=== PATIENT | male | born 1955 | race Caucasian/White ===

== ENCOUNTER 2017-09-03 08:30 | Outpatient (RCR) | payer OTHER, SELFPAY ==
[2017-08-20 09:24] VITALS: BP 126/88; PULSE 62; RESP 18; TEMP 36.9; BMI 35.5
[2017-08-20 12:38] LABS: Absolute Lymphocyte Count 2.01 X10^3/ul (0.83-4.51); Absolute Neutrophil Count 4.1 X10^3/uL (2.0-7.7); Eosinophil# 0.21 X10^3/uL; Eosinophils% 2.9 % (0-5); Erythrocyte Sedimentation Rate 7 mm/hr (0-20); Hematocrit 45.1 % (40-54); Hemoglobin 15.3 g/dl (13.0-16.5); Lymphocyte # 2.01 X10^3/ul (4.0); Lymphocyte % 27.7 % (19-41); Mean Corp Hgb Conc 33.9 g/gl (32-36); Mean Corpuscular Hgb 30.4 pg (27.0-32.0); Mean Corpuscular Volume 89.5 fL (80-94); Mean Platelet Vol. 9.5 fl (6.2-12.0); Monocyte# 0.93 X10^3/uL; Monocyte% 12.8 % (0-10); Neutrophil # 4.06 X10^3/uL (2.7-7.7); Platelet Count 234 K/mm3 (150-450); RBC Distribution Width CV 12.9 % (11.6-14.6); RBC Distribution Width SD 41.9 fl (35.1-43.9); Red Blood Count 5.04 M/mm3 (4.6-6.2); White Blood Count 7.3 K/mm3 (4.4-11.0)
[2017-08-20 12:41] LABS: POSITIVE COUNT NO; POSITIVE DIFFERENTIAL NO; POSITIVE MORPHOLOGY NO
[2017-08-20 13:03] LABS: Hemoglobin A1c 5.6 % (4.2-6.3)
[2017-08-20 13:04] LABS: AST(SGOT) 31 U/L (15-37); Alanine Aminotransfer ALT/SGPT 56 U/L (16-61); Albumin, Serum 3.7 g/dL (3.2-5.0); Alkaline Phosphatase 77 U/L (45-117); Anion Gap 8 (5-15); BUN 23 mg/dL (7-18); BUN/Creat Ratio 21.1 RATIO (10-20); Chloride 107 mmol/L (98-107); Creatinine, Serum 1.09 mg/dL (0.70-1.30); EST Glomerular Filtration Rate 73 mL/min (>60); Est Glom Filt Rate - Afr Amer 89 mL/min (>60); Estimated Creatinine Clearance 90.83 ml/min; Globulin 3.6 g/dL (2.2-4.2); Glucose 80 mg/dL (74-106); Potassium 4.1 mmol/L (3.5-5.1); Prealbumin 26.5 mg/dL (20.0-40.0); Protein, Total 7.3 g/dL (6.4-8.2); Sodium Level 143 mmol/L (136-145)
--- NOTE | 2017-08-20 13:25 | PCM.WC.HP ---
(1) Neuropathic ulcer of left foot with fat layer exposed Status: Acute Current Visit: Yes Code(s): L97.522 - Non-pressure chronic ulcer of other part of left foot with fat layer exposed (2) Delayed wound healing Status: Acute Current Visit: Yes Code(s): T14.8XXD - Other injury of unspecified body region, subsequent encounter (3) Malnutrition Status: Suspected Current Visit: Yes Code(s): E46 - Unspecified protein-calorie malnutrition (4) Obesity Status: Acute Current Visit: Yes Code(s): E66.9 - Obesity, unspecified (5) Idiopathic neuropathy Status: Acute Current Visit: Yes Code(s): G60.9 - Hereditary and idiopathic neuropathy, unspecified History of Present Illness Date of Service: 08/20/17 Chief Complaint: ulcer of left great toe History of Wound: Patient presents to wound center today with a non healing ulcer to the distal plantar medial left foot. He says he thinks he had a callus and blister in the area that started the ulcer. He noticed it about a week and a half ago. He has had ulcers in the past, so for the last week and a half he has tried to dress the area with aquacel ag that he had left over from the past. He says he has not noticed it getting much worse, but he has not noticed an improvement. He denies any purulence or significant amount of drainage to the area. He saw Dr. Pillai on August 12 who cultured the ulcer site and started the patietn on 10 days of Ciprofloxacin one the sensitivity came back. Patient says he started taking the medication 2 days ago. 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 He had accommodative inserts made at [employer] close to a year ago, however, the area of the previous ulcre is not an offloaded area. Patient denies any feeling of nausea, vomiting, fever, chills, or shortness of breath. Past Medical History Allergies/Adverse Reactions: Allergies Penicillins [PCN] Adverse Reaction (Verified 07/02/16 08:49) Unknown Home Medications: Ambulatory Orders Medication Instructions Recorded Aspirin [Aspirin, Baby] 81 mg PO DAILY@0800 06/15/13 Atenolol [] 100 mg PO DAILY 06/22/13 Garlic 1,000 mg PO DAILY 06/22/13 Smoking Status: Never smoker Tobacco Use: Non-smoker Review of Systems Constitutional: Denies: Chills, Fever, Weight Change Cardiovascular: Denies: Chest Pain, Palpitations Respiratory: Denies: Cough, Shortness of Breath Gastrointestinal: Denies: Diarrhea, Nausea, Vomiting Genitourinary: Denies: Dysuria, Hematuria Skin: Reports: Wounds Neurological: Reports: - - forefoot neuropathy Hematologic/ Lymphatic: Denies: Easy Bruising, Easy Bleeding - Physical Exam Vital Signs Temp Pulse Resp BP 98.4 F 62 18 126/88 H 08/20/17 09:24 08/20/17 09:24 08/20/17 09:24 08/20/17 09:24 General: Alert, Oriented x3, Cooperative, No apparent distress Extremities: No edema, Capillary Refill Less than 3 Seconds, No Calf Tenderness - negative hannah and byrne sign, Peripheral Pulses Normal - DP and PT pulses palpable Skin: Ulcer/ Wound - Ulcer to plantar distal left forefoot, just distal to the 1st metatarsal head. Ulcer base was noted to have adherent slough and fibrotic tissue with some granular tissue to base as well as hyperkeratotic rim. There was also a small amount of undermining appreciated around the entire ulcer site. There is no probing to bone noted. There is no purulence, malodor, cellulitis, or any other signs of local infection appreciated. Wound Measurements and Assessment WC - Nurse 1 - General Ulcer Measurement Start: 08/20/17 09:18 Freq: Status: Active Protocol: Activity Type Activity Date Activity User E-Sign Co-Sign Detail Recorded Client Recorded Date Recorded By Document 08/20/17 09:24 [id number] 08/20/17 09:36 08/20/17 09:24 Wound Center Nurse 1 [Ulcer Assessment] #3 LEFT PLANTAR 1ST METATARSAL HEAD -Combined with other wound No -Current Size (cm) - Length 0.6 -Current Size (cm) - Width 0.6 -Current Size (cm) - Depth 0.3 -Total Square Cm 0.36 -Date of Last Picture (Recall this 08/20/17 field) -Photo Taken Yes -Epithelialization None Present -Tunneling No -Undermining/Tunneling No -Circular Undermining No -Classification - Thickness Full Thickness without Exposed Support Structure -Exudate Amt Small (1-33%) -Exudate Type Serosanguineous -Wound Margin Distinct, Outline Attached -Granulation Amt None Present (0 %) -Granulation Quality N/A -Slough/Fibrin Yes -Necrosis Amt Large (67-100%) -Necrotic Tissue Type Adherent Slough -Structure Exposed Fascia Fat Layer Exposed -Texture (Bernice-wound Skin Appearance) Callus Scarring -Moisture (Bernice-wound Skin Appearance No Abnormality ) -Color (Bernice-wound Skin Appearance) No Abnormality -Temperature (Bernice-wound Skin No Abnormality Appearance) (Pt Warm) -Tenderness on Palpation (Bernice-wound No Skin Appearance) -Ulcer Cleansing Rinsed/ Irrigated with Saline -Foul Odor after Cleansing No -Anesthetic Used 4% Lidocaine Solution [Edema Assessment] -Lower Limb Edema Present Yes -Right Calf (cm) 43.0 -Right Ankle (cm) 25.5 -Left Calf (cm) 43.0 -Left Ankle (cm) 26.0 WC - Nurse 2 - General Ulcer CM Notes Start: 08/20/17 09:18 Freq: Status: Active Protocol: Activity Type Activity Date Activity User E-Sign Co-Sign Detail Recorded Client Recorded Date Recorded By Document 08/20/17 10:09 MW [id number] 08/20/17 10:16 MW 08/20/17 10:09 Wound Center Nurse 2 [Procedure/Treatment] #3 LEFT PLANTAR 1ST METATARSAL HEAD -Time 10:10 -Correct Patient Yes -Correct Side, Site, Position Yes -Correct Procedure Yes -Procedure Performed Yes -Type of Procedure Debridement -Clinical Debridement Subcutaneous -Post Debridement Size (cm) - Length 1.1 -Post Debridement Size (cm) - Width 1.2 -Post Debridement Size (cm) - Depth 0.4 -Total Square Cm 1.32 -Wound/Ulcer Outcome Not Healed -Ulcer Cleansing Rinsed/ Irrigated with Saline -Foul Odor after Cleansing No -Bioengineered Tissue No -Bleeding Controlled with Pressure -Treatment Response Procedure Tolerated Well [See Physician Procedure note for Specifics] Pain Scale: 0-10 Numeric [Pain] -Is Patient Pain Free? Yes Musculoskeletal: - - muscle strength 5/5 for all dorsiflexors, plantarflexors, inverters, and everters of the foot Neurological: - - protective sensation absent from left forefoot as tested with a 5.07 semmes cody monofilament Psych/Mental Status: Normal Affect, Appropriate Debridement Note Post-Debridement Measurements/Treatment WC - Nurse 2 - General Ulcer CM Notes Start: 08/20/17 09:18 Freq: Status: Active Protocol: Activity Type Activity Date Activity User E-Sign Co-Sign Detail Recorded Client Recorded Date Recorded By Document 08/20/17 10:09 MW [id number] 08/20/17 10:16 MW 08/20/17 10:09 Wound Center Nurse 2 #3 LEFT PLANTAR 1ST METATARSAL HEAD -Time 10:10 -Correct Patient Yes -Correct Side, Site, Position Yes -Correct Procedure Yes -Procedure Performed Yes -Type of Procedure Debridement -Clinical Debridement Subcutaneous -Post Debridement Size (cm) - Length 1.1 -Post Debridement Size (cm) - Width 1.2 -Post Debridement Size (cm) - Depth 0.4 -Total Square Cm 1.32 -Wound/Ulcer Outcome Not Healed -Ulcer Cleansing Rinsed/ Irrigated with Saline -Foul Odor after Cleansing No -Bioengineered Tissue No -Bleeding Controlled with Pressure -Treatment Response Procedure Tolerated Well Pain Scale: 0-10 Numeric Is Patient Pain Free? Yes Wound debrided: Left plantar medial distal forefoot Laterality: Left Type of Debridement: Excisional debridement Anesthesia Used: 4% Lidocaine Solution Depth: in the subcutaneous layer Percentage of wound debrided: 100 Instrument Used: #15 blade, Forceps, - - tissue nipper Tissue Removed: adherent slough, fibrotic tissue, hyperkeratotic tissue Severity: Fat Layer Exposed Amount of bleeding with debridement: Mild Bleeding Controlled with: Pressure Patient tolerated procedure well Assessment/Plan Active Problems Neuropathic ulcer of left foot with fat layer exposed (Acute) Delayed wound healing (Acute) Obesity (Acute) Idiopathic neuropathy (Acute) Assessment: Ulcer left foot with fat layer exposed. idiopathic neuropathy. obesity Plan: Initial patient examination and evaluation was performed. Ulcer site was debrided as noted in the clinical panel. Ulcer site was dressed with Aquacel Ag to the base followed by dry sterile dressing. The patient is to changes daily. Offloading the ulcer site was discussed in great detail with the patient. It was stressed the importance of keeping this area offloaded as much as possible. He had a pair of accommodative orthotics made at [facility] last year, however, there is no accommodation in the site of the current ulcer. A prescription was given to the patient to follow-up with antibiotics to see if they are able to make an accommodation for the current ulcer in the pair of inserts he already has. At his visit today, and offloading pad was fashioned and applied to the patient's orthotic to help offload the area. Dr. Pillai cultured the patient's ulcer on August 12 and was shown to grow some staph aureus as well as pseudomonas aeruginosa. He started the patient on ciprofloxacin and he was given a 10 day supply of which the patient started 2 days ago. The patient was instructed to continue to take this antibiotic until complete. Baseline lab work was ordered today including a CBC with differential, CMP, prealbumin, ESR, hemoglobin A1c. These results will be evaluated prior to the patient's next visit. Dressing supplies were ordered for the patient today patient was instructed to eat a high protein diet to help accelerate ulcer healing. Patient was educated on all signs and symptoms of local and systemic infection and is instructed to go to the ER immediately should he notice any. All questions were answered to the patient's satisfaction. Patient will follow-up in clinic in 1 week or sooner if needed.
--- NOTE | 2017-08-20 13:36 | HP.PCM_ITS ---
(1) Neuropathic ulcer of left foot with fat layer exposed Status: Acute Current Visit: Yes Code(s): L97.522 - Non-pressure chronic ulcer of other part of left foot with fat layer exposed (2) Delayed wound healing Status: Acute Current Visit: Yes Code(s): T14.8XXD - Other injury of unspecified body region, subsequent encounter (3) Malnutrition Status: Suspected Current Visit: Yes Code(s): E46 - Unspecified protein- calorie malnutrition (4) Obesity Status: Acute Current Visit: Yes Code(s): E66.9 - Obesity, unspecified (5) Idiopathic neuropathy Status: Acute Current Visit: Yes Code(s): G60.9 - Hereditary and idiopathic neuropathy, unspecified History of Present Illness Date of Service: 08/20/17 Chief Complaint: ulcer of left great toe History of Wound: Patient presents to wound center today with a non healing ulcer to the distal plantar medial left foot. He says he thinks he had a callus and blister in the area that started the ulcer. He noticed it about a week and a half ago. He has had ulcers in the past, so for the last week and a half he has tried to dress the area with aquacel ag that he had left over from the past. He says he has not noticed it getting much worse, but he has not noticed an improvement. He denies any purulence or significant amount of drainage to the area. He saw Dr. Pillai on August 12 who cultured the ulcer site and started the patietn on 10 days of Ciprofloxacin one the sensitivity came back. Patient says he started taking the medication 2 days ago. 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 He had accommodative inserts made at [employer] close to a year ago, however, the area of the previous ulcre is not an offloaded area. Patient denies any feeling of nausea, vomiting, fever, chills, or shortness of breath. Past Medical History Allergies/Adverse Reactions: Allergies Penicillins [PCN] Adverse Reaction (Verified 07/02/16 08:49) Unknown Home Medications: Ambulatory Orders Medication Instructions Recorded Aspirin [Aspirin, Baby] 81 mg PO DAILY@0800 06/15/13 Atenolol [] 100 mg PO DAILY 06/22/13 Garlic 1,000 mg PO DAILY 06/22/13 Smoking Status: Never smoker Tobacco Use: Non-smoker Review of Systems Constitutional: Denies: Chills, Fever, Weight Change Cardiovascular: Denies: Chest Pain, Palpitations Respiratory: Denies: Cough, Shortness of Breath Gastrointestinal: Denies: Diarrhea, Nausea, Vomiting Genitourinary: Denies: Dysuria, Hematuria Skin: Reports: Wounds Neurological: Reports: - - forefoot neuropathy Hematologic/ Lymphatic: Denies: Easy Bruising, Easy Bleeding - Physical Exam Vital Signs Temp Pulse Resp BP 98.4 F 62 18 126/88 H 08/20/17 09:24 08/20/17 09:24 08/20/17 09:24 08/20/17 09:24 General: Alert, Oriented x3, Cooperative, No apparent distress Extremities: No edema, Capillary Refill Less than 3 Seconds, No Calf Tenderness - negative hannah and byrne sign, Peripheral Pulses Normal - DP and PT pulses palpable Skin: Ulcer/ Wound - Ulcer to plantar distal left forefoot, just distal to the 1st metatarsal head. Ulcer base was noted to have adherent slough and fibrotic tissue with some granular tissue to base as well as hyperkeratotic rim. There was also a small amount of undermining appreciated around the entire ulcer site. There is no probing to bone noted. There is no purulence, malodor, cellulitis, or any other signs of local infection appreciated. Wound Measurements and Assessment WC - Nurse 1 - General Ulcer Measurement Start: 08/20/17 09:18 Freq: Status: Active Protocol: Activity Type Activity Date Activity User E-Sign Co-Sign Detail Recorded Client Recorded Date Recorded By Document 08/20/17 09:24 [id number] 08/20/17 09:36 08/20/17 09:24 Wound Center Nurse 1 [Ulcer Assessment] #3 LEFT PLANTAR 1ST METATARSAL HEAD -Combined with other wound No -Current Size (cm) - Length 0.6 -Current Size (cm) - Width 0.6 -Current Size (cm) - Depth 0.3 -Total Square Cm 0.36 -Date of Last Picture (Recall this 08/20/17 field) -Photo Taken Yes -Epithelialization None Present -Tunneling No -Undermining/Tunneling No -Circular Undermining No -Classification - Thickness Full Thickness without Exposed Support Structure -Exudate Amt Small (1-33%) -Exudate Type Serosanguineous -Wound Margin Distinct, Outline Attached -Granulation Amt None Present (0 %) -Granulation Quality N/A -Slough/Fibrin Yes -Necrosis Amt Large (67-100%) -Necrotic Tissue Type Adherent Slough -Structure Exposed Fascia Fat Layer Exposed -Texture (Bernice-wound Skin Appearance) Callus Scarring -Moisture (Bernice-wound Skin Appearance No Abnormality ) -Color (Bernice-wound Skin Appearance) No Abnormality -Temperature (Bernice-wound Skin No Abnormality Appearance) (Pt Warm) -Tenderness on Palpation (Bernice-wound No Skin Appearance) -Ulcer Cleansing Rinsed/ Irrigated with Saline -Foul Odor after Cleansing No -Anesthetic Used 4% Lidocaine Solution [Edema Assessment] -Lower Limb Edema Present Yes -Right Calf (cm) 43.0 -Right Ankle (cm) 25.5 -Left Calf (cm) 43.0 -Left Ankle (cm) 26.0 WC - Nurse 2 - General Ulcer CM Notes Start: 08/20/17 09:18 Freq: Status: Active Protocol: Activity Type Activity Date Activity User E-Sign Co-Sign Detail Recorded Client Recorded Date Recorded By Document 08/20/17 10:09 MW [id number] 08/20/17 10:16 MW 08/20/17 10:09 Wound Center Nurse 2 [Procedure/Treatment] #3 LEFT PLANTAR 1ST METATARSAL HEAD -Time 10:10 -Correct Patient Yes -Correct Side, Site, Position Yes -Correct Procedure Yes -Procedure Performed Yes -Type of Procedure Debridement -Clinical Debridement Subcutaneous -Post Debridement Size (cm) - Length 1.1 -Post Debridement Size (cm) - Width 1.2 -Post Debridement Size (cm) - Depth 0.4 -Total Square Cm 1.32 -Wound/Ulcer Outcome Not Healed -Ulcer Cleansing Rinsed/ Irrigated with Saline -Foul Odor after Cleansing No -Bioengineered Tissue No -Bleeding Controlled with Pressure -Treatment Response Procedure Tolerated Well [See Physician Procedure note for Specifics] Pain Scale: 0-10 Numeric [Pain] -Is Patient Pain Free? Yes Musculoskeletal: - - muscle strength 5/5 for all dorsiflexors, plantarflexors, inverters, and everters of the foot Neurological: - - protective sensation absent from left forefoot as tested with a 5.07 semmes cody monofilament Psych/Mental Status: Normal Affect, Appropriate Debridement Note Post-Debridement Measurements/Treatment WC - Nurse 2 - General Ulcer CM Notes Start: 08/20/17 09:18 Freq: Status: Active Protocol: Activity Type Activity Date Activity User E-Sign Co-Sign Detail Recorded Client Recorded Date Recorded By Document 08/20/17 10:09 MW [id number] 08/20/17 10:16 MW 08/20/17 10:09 Wound Center Nurse 2 #3 LEFT PLANTAR 1ST METATARSAL HEAD -Time 10:10 -Correct Patient Yes -Correct Side, Site, Position Yes -Correct Procedure Yes -Procedure Performed Yes -Type of Procedure Debridement -Clinical Debridement Subcutaneous -Post Debridement Size (cm) - Length 1.1 -Post Debridement Size (cm) - Width 1.2 -Post Debridement Size (cm) - Depth 0.4 -Total Square Cm 1.32 -Wound/Ulcer Outcome Not Healed -Ulcer Cleansing Rinsed/ Irrigated with Saline -Foul Odor after Cleansing No -Bioengineered Tissue No -Bleeding Controlled with Pressure -Treatment Response Procedure Tolerated Well Pain Scale: 0-10 Numeric Is Patient Pain Free? Yes Wound debrided: Left plantar medial distal forefoot Laterality: Left Type of Debridement: Excisional debridement Anesthesia Used: 4% Lidocaine Solution Depth: in the subcutaneous layer Percentage of wound debrided: 100 Instrument Used: #15 blade, Forceps, - - tissue nipper Tissue Removed: adherent slough, fibrotic tissue, hyperkeratotic tissue Severity: Fat Layer Exposed Amount of bleeding with debridement: Mild Bleeding Controlled with: Pressure Patient tolerated procedure well Assessment/Plan Active Problems Neuropathic ulcer of left foot with fat layer exposed (Acute) Delayed wound healing (Acute) Obesity (Acute) Idiopathic neuropathy (Acute) Assessment: Ulcer left foot with fat layer exposed. idiopathic neuropathy. obesity Plan: Initial patient examination and evaluation was performed. Ulcer site was debrided as noted in the clinical panel. Ulcer site was dressed with Aquacel Ag to the base followed by dry sterile dressing. The patient is to changes daily. Offloading the ulcer site was discussed in great detail with the patient. It was stressed the importance of keeping this area offloaded as much as possible. He had a pair of accommodative orthotics made at [facility] last year, however, there is no accommodation in the site of the current ulcer. A prescription was given to the patient to follow-up with antibiotics to see if they are able to make an accommodation for the current ulcer in the pair of inserts he already has. At his visit today, and offloading pad was fashioned and applied to the patient's orthotic to help offload the area. Dr. Pillai cultured the patient's ulcer on August 12 and was shown to grow some staph aureus as well as pseudomonas aeruginosa. He started the patient on ciprofloxacin and he was given a 10 day supply of which the patient started 2 days ago. The patient was instructed to continue to take this antibiotic until complete. Baseline lab work was ordered today including a CBC with differential, CMP, prealbumin, ESR, hemoglobin A1c. These results will be evaluated prior to the patient's next visit. Dressing supplies were ordered for the patient today patient was instructed to eat a high protein diet to help accelerate ulcer healing. Patient was educated on all signs and symptoms of local and systemic infection and is instructed to go to the ER immediately should he notice any. All questions were answered to the patient's satisfaction. Patient will follow- up in clinic in 1 week or sooner if needed.
[2017-08-27 09:21] VITALS: BP 123/68; PULSE 77; RESP 18; TEMP 36.5; BMI 35.5
--- NOTE | 2017-08-27 13:19 | PCM.WC.PN ---
(1) Neuropathic ulcer of left foot with fat layer exposed Status: Acute Current Visit: Yes Code(s): L97.522 - Non-pressure chronic ulcer of other part of left foot with fat layer exposed (2) Delayed wound healing Status: Acute Current Visit: Yes Code(s): T14.8XXD - Other injury of unspecified body region, subsequent encounter (3) Malnutrition Status: Suspected Current Visit: Yes Code(s): E46 - Unspecified protein-calorie malnutrition (4) Obesity Status: Acute Current Visit: Yes Code(s): E66.9 - Obesity, unspecified (5) Idiopathic neuropathy Status: Acute Current Visit: Yes Code(s): G60.9 - Hereditary and idiopathic neuropathy, unspecified Type of Wound Date of Service: 08/27/17 Chief Complaint: ulcer of left great toe History of Wound: Patient presents to wound center today with a non healing ulcer to the distal plantar medial left foot. He says he thinks he had a callus and blister in the area that started the ulcer. He noticed it about a week and a half ago. He has had ulcers in the past, so for the last week and a half he has tried to dress the area with aquacel ag that he had left over from the past. He says he has not noticed it getting much worse, but he has not noticed an improvement. He denies any purulence or significant amount of drainage to the area. He saw Dr. Pillai on August 12 who cultured the ulcer site and started the patietn on 10 days of Ciprofloxacin one the sensitivity came back. Patient says he started taking the medication 2 days ago. 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 He had accommodative inserts made at [facility] close to a year ago, however, the area of the previous ulcre is not an offloaded area. Patient denies any feeling of nausea, vomiting, fever, chills, or shortness of breath. Progress of Wound: Patient presents after one week of care and daily dressing changes consistig of aqucel ag and a dry sterile dressing. He says he has been wearing his offloading padding in his orhotic, but it may have moved and not be in the correct place any longer. He says he called [facility] with his prescription, and they are unable to get him in until next . Patient says he has not noticed any purulence or any other signs of infection. He denies any nausea, vomiting, fever, or chills today. - Physical Exam Vital Signs Temp Pulse Resp BP 97.7 F L 77 18 123/68 H 08/27/17 09:21 08/27/17 09:21 08/27/17 09:21 08/27/17 09:21 General: Alert, Oriented x3, Cooperative, No apparent distress Extremities: Capillary Refill Less than 3 Seconds, No Calf Tenderness - negative hannah and byrne sign, Peripheral Pulses Normal - DP and PT pulses palpable Skin: Ulcer/ Wound - Ulcer to plantar distal left forefoot, just distal to the 1st metatarsal head. Ulcer base was noted to have adherent slough and fibrotic tissue with some granular tissue to base as well as hyperkeratotic rim again today. There was also a small amount of undermining appreciated around the entire ulcer site today as well. There is still no probing to bone noted. There is no purulence, malodor, cellulitis, or any other signs of local infection appreciated. Wound Measurements and Assessment WC - Nurse 1 - General Ulcer Measurement Start: 08/20/17 09:18 Freq: Status: Active Protocol: Activity Type Activity Date Activity User E-Sign Co-Sign Detail Recorded Client Recorded Date Recorded By Document 08/27/17 09:21 [id number] 08/27/17 09:23 08/27/17 09:21 Wound Center Nurse 1 [Ulcer Assessment] #3 LEFT PLANTAR 1ST METATARSAL HEAD -Combined with other wound No -Current Size (cm) - Length 0.8 -Current Size (cm) - Width 0.7 -Current Size (cm) - Depth 0.2 -Total Square Cm 0.56 -Photo Taken No -Epithelialization None Present -Tunneling No -Undermining/Tunneling No -Circular Undermining No -Classification - Thickness Full Thickness without Exposed Support Structure -Exudate Amt Small (1-33%) -Exudate Type Serosanguineous -Wound Margin Distinct, Outline Attached -Granulation Amt Large (67-100%) -Granulation Quality Pale [place] -Slough/Fibrin Yes -Necrosis Amt Small (1-33%) -Necrotic Tissue Type Adherent Slough -Structure Exposed Fascia Fat Layer Exposed -Texture (Bernice-wound Skin Appearance) Callus Scarring -Moisture (Bernice-wound Skin Appearance Maceration ) -Color (Bernice-wound Skin Appearance) No Abnormality -Temperature (Bernice-wound Skin No Abnormality Appearance) (Pt Warm) -Tenderness on Palpation (Bernice-wound No Skin Appearance) -Ulcer Cleansing Rinsed/ Irrigated with Saline -Foul Odor after Cleansing No -Anesthetic Used 5% Lidocaine Gel [Edema Assessment] -Lower Limb Edema Present Yes -Left Calf (cm) 41.0 -Left Ankle (cm) 26.0 WC - Nurse 2 - General Ulcer CM Notes Start: 08/20/17 09:18 Freq: Status: Active Protocol: Activity Type Activity Date Activity User E-Sign Co-Sign Detail Recorded Client Recorded Date Recorded By Document 08/27/17 09:59 MW [id number] 08/27/17 10:19 MW 08/27/17 09:59 Wound Center Nurse 2 [Procedure/Treatment] #3 LEFT PLANTAR 1ST METATARSAL HEAD -Time 10:00 -Correct Patient Yes -Correct Side, Site, Position Yes -Correct Procedure Yes -Procedure Performed Yes -Type of Procedure Debridement -Clinical Debridement Subcutaneous -Post Debridement Size (cm) - Length 1.0 -Post Debridement Size (cm) - Width 1.2 -Post Debridement Size (cm) - Depth 0.3 -Total Square Cm 1.20 -Wound/Ulcer Outcome Not Healed -Ulcer Cleansing Rinsed/ Irrigated with Saline -Foul Odor after Cleansing No -Bioengineered Tissue No -Bleeding Controlled with Pressure -Treatment Response Procedure Tolerated Well [See Physician Procedure note for Specifics] Pain Scale: 0-10 Numeric [Pain] -Is Patient Pain Free? Yes Musculoskeletal: - - muscle strength 5/5 for all dorsiflexors, plantarflexors, inverters, and everters of the foot Neurological: - - Protective sensation absent to all sites tested to the patient's forefoot as tested with a 5.07 semmes-cody monofilament. Psych/Mental Status: Normal Affect, Appropriate Debridement Note Post-Debridement Measurements/Treatment - Nurse 2 - General Ulcer CM Notes Start: 08/20/17 09:18 Freq: Status: Active Protocol: Activity Type Activity Date Activity User E-Sign Co-Sign Detail Recorded Client Recorded Date Recorded By Document 08/20/17 10:09 MW [id number] 08/20/17 10:16 MW Document 08/27/17 09:59 MW [id number] 08/27/17 10:19 MW 08/20/17 08/27/17 10:09 09:59 Wound Center Nurse 2 #3 LEFT PLANTAR 1ST METATARSAL HEAD -Time 10:10 10:00 -Correct Patient Yes Yes -Correct Side, Site, Position Yes Yes -Correct Procedure Yes Yes -Procedure Performed Yes Yes -Type of Procedure Debridement Debridement -Clinical Debridement Subcutaneous Subcutaneous -Post Debridement Size (cm) - Length 1.1 1.0 -Post Debridement Size (cm) - Width 1.2 1.2 -Post Debridement Size (cm) - Depth 0.4 0.3 -Total Square Cm 1.32 1.20 -Wound/Ulcer Outcome Not Healed Not Healed -Ulcer Cleansing Rinsed/ Rinsed/ Irrigated with Irrigated with Saline Saline -Foul Odor after Cleansing No No -Bioengineered Tissue No No -Bleeding Controlled with Pressure Pressure -Treatment Response Procedure Procedure Tolerated Well Tolerated Well Pain Scale: 0-10 Numeric Is Patient Pain Free? Yes Yes Wound debrided: Left plantar medial distal forefoot Laterality: Left Type of Debridement: Excisional debridement Anesthesia Used: 4% Lidocaine Solution Depth: in the subcutaneous layer Percentage of wound debrided: 100 Instrument Used: 5mm curette, #15 blade, - - tissue nipper Tissue Removed: adherent slough, fibrin, hyperkeratotic tissue, undermining tissue Severity: Fat Layer Exposed Amount of bleeding with debridement: Moderate Bleeding Controlled with: Pressure, Silver Nitrate Patient tolerated procedure well Assessment/Plan Active Problems Neuropathic ulcer of left foot with fat layer exposed (Acute) Delayed wound healing (Acute) Obesity (Acute) Idiopathic neuropathy (Acute) Assessment: Ulcer left foot with fat layer exposed. idiopathic neuropathy. obesity Plan: Patient was examined and evaluated again today. Ulcer site was debrided as noted in the clinical panel. Ulcer site was dressed with Aquacel Ag to the base followed by dry sterile dressing. The patient is to change this daily. Offloading the ulcer site was discussed in great detail with the patient again today and the importance of doing so. It was stressed the importance of keeping this area offloaded as much as possible, or any other wound care we do will not matter. He had a pair of accommodative orthotics made at [facility] last year, however, there is no accommodation in the site of the current ulcer. Patient will see [facility] next . At his visit today, annother larger offloading pad was fashioned and applied to the patient's orthotic to help offload the area for the time being. Dr. Pillai cultured the patient's ulcer on August 12 and was shown to grow some staph aureus as well as pseudomonas aeruginosa. He started the patient on ciprofloxacin and he was given a 10 day supply of which the patient has a day left of. The patient was instructed to continue to take this antibiotic until complete. Baseline lab work was reviewed today that was ordered at last visit. These results will be evaluated prior to the patient's next visit. Patient was instructed to eat a high protein diet to help accelerate ulcer healing. Patient was educated on all signs and symptoms of local and systemic infection and is instructed to go to the ER immediately should he notice any. All questions were answered to the patient's satisfaction. Patient will follow-up in clinic in 1 week or sooner if needed.
--- NOTE | 2017-08-27 13:31 | PN.PCM_ITS ---
(1) Neuropathic ulcer of left foot with fat layer exposed Status: Acute Current Visit: Yes Code(s): L97.522 - Non-pressure chronic ulcer of other part of left foot with fat layer exposed (2) Delayed wound healing Status: Acute Current Visit: Yes Code(s): T14.8XXD - Other injury of unspecified body region, subsequent encounter (3) Malnutrition Status: Suspected Current Visit: Yes Code(s): E46 - Unspecified protein- calorie malnutrition (4) Obesity Status: Acute Current Visit: Yes Code(s): E66.9 - Obesity, unspecified (5) Idiopathic neuropathy Status: Acute Current Visit: Yes Code(s): G60.9 - Hereditary and idiopathic neuropathy, unspecified Type of Wound Date of Service: 08/27/17 Chief Complaint: ulcer of left great toe History of Wound: Patient presents to wound center today with a non healing ulcer to the distal plantar medial left foot. He says he thinks he had a callus and blister in the area that started the ulcer. He noticed it about a week and a half ago. He has had ulcers in the past, so for the last week and a half he has tried to dress the area with aquacel ag that he had left over from the past. He says he has not noticed it getting much worse, but he has not noticed an improvement. He denies any purulence or significant amount of drainage to the area. He saw Dr. Pillai on August 12 who cultured the ulcer site and started the patietn on 10 days of Ciprofloxacin one the sensitivity came back. Patient says he started taking the medication 2 days ago. 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 He had accommodative inserts made at [facility] close to a year ago, however, the area of the previous ulcre is not an offloaded area. Patient denies any feeling of nausea, vomiting, fever, chills, or shortness of breath. Progress of Wound: Patient presents after one week of care and daily dressing changes consistig of aqucel ag and a dry sterile dressing. He says he has been wearing his offloading padding in his orhotic, but it may have moved and not be in the correct place any longer. He says he called [facility] with his prescription, and they are unable to get him in until next . Patient says he has not noticed any purulence or any other signs of infection. He denies any nausea, vomiting, fever, or chills today. - Physical Exam Vital Signs Temp Pulse Resp BP 97.7 F L 77 18 123/68 H 08/27/17 09:21 08/27/17 09:21 08/27/17 09:21 08/27/17 09:21 General: Alert, Oriented x3, Cooperative, No apparent distress Extremities: Capillary Refill Less than 3 Seconds, No Calf Tenderness - negative hannah and byrne sign, Peripheral Pulses Normal - DP and PT pulses palpable Skin: Ulcer/ Wound - Ulcer to plantar distal left forefoot, just distal to the 1st metatarsal head. Ulcer base was noted to have adherent slough and fibrotic tissue with some granular tissue to base as well as hyperkeratotic rim again today. There was also a small amount of undermining appreciated around the entire ulcer site today as well. There is still no probing to bone noted. There is no purulence, malodor, cellulitis, or any other signs of local infection appreciated. Wound Measurements and Assessment WC - Nurse 1 - General Ulcer Measurement Start: 08/20/17 09:18 Freq: Status: Active Protocol: Activity Type Activity Date Activity User E-Sign Co-Sign Detail Recorded Client Recorded Date Recorded By Document 08/27/17 09:21 [id number] 08/27/17 09:23 08/27/17 09:21 Wound Center Nurse 1 [Ulcer Assessment] #3 LEFT PLANTAR 1ST METATARSAL HEAD -Combined with other wound No -Current Size (cm) - Length 0.8 -Current Size (cm) - Width 0.7 -Current Size (cm) - Depth 0.2 -Total Square Cm 0.56 -Photo Taken No -Epithelialization None Present -Tunneling No -Undermining/Tunneling No -Circular Undermining No -Classification - Thickness Full Thickness without Exposed Support Structure -Exudate Amt Small (1-33%) -Exudate Type Serosanguineous -Wound Margin Distinct, Outline Attached -Granulation Amt Large (67-100%) -Granulation Quality Pale [place] -Slough/Fibrin Yes -Necrosis Amt Small (1-33%) -Necrotic Tissue Type Adherent Slough -Structure Exposed Fascia Fat Layer Exposed -Texture (Bernice-wound Skin Appearance) Callus Scarring -Moisture (Bernice-wound Skin Appearance Maceration ) -Color (Bernice-wound Skin Appearance) No Abnormality -Temperature (Bernice-wound Skin No Abnormality Appearance) (Pt Warm) -Tenderness on Palpation (Bernice-wound No Skin Appearance) -Ulcer Cleansing Rinsed/ Irrigated with Saline -Foul Odor after Cleansing No -Anesthetic Used 5% Lidocaine Gel [Edema Assessment] -Lower Limb Edema Present Yes -Left Calf (cm) 41.0 -Left Ankle (cm) 26.0 WC - Nurse 2 - General Ulcer CM Notes Start: 08/20/17 09:18 Freq: Status: Active Protocol: Activity Type Activity Date Activity User E-Sign Co-Sign Detail Recorded Client Recorded Date Recorded By Document 08/27/17 09:59 MW [id number] 08/27/17 10:19 MW 08/27/17 09:59 Wound Center Nurse 2 [Procedure/Treatment] #3 LEFT PLANTAR 1ST METATARSAL HEAD -Time 10:00 -Correct Patient Yes -Correct Side, Site, Position Yes -Correct Procedure Yes -Procedure Performed Yes -Type of Procedure Debridement -Clinical Debridement Subcutaneous -Post Debridement Size (cm) - Length 1.0 -Post Debridement Size (cm) - Width 1.2 -Post Debridement Size (cm) - Depth 0.3 -Total Square Cm 1.20 -Wound/Ulcer Outcome Not Healed -Ulcer Cleansing Rinsed/ Irrigated with Saline -Foul Odor after Cleansing No -Bioengineered Tissue No -Bleeding Controlled with Pressure -Treatment Response Procedure Tolerated Well [See Physician Procedure note for Specifics] Pain Scale: 0-10 Numeric [Pain] -Is Patient Pain Free? Yes Musculoskeletal: - - muscle strength 5/5 for all dorsiflexors, plantarflexors, inverters, and everters of the foot Neurological: - - Protective sensation absent to all sites tested to the patient 's forefoot as tested with a 5.07 semmes-cody monofilament. Psych/Mental Status: Normal Affect, Appropriate Debridement Note Post-Debridement Measurements/Treatment - Nurse 2 - General Ulcer CM Notes Start: 08/20/17 09:18 Freq: Status: Active Protocol: Activity Type Activity Date Activity User E-Sign Co-Sign Detail Recorded Client Recorded Date Recorded By Document 08/20/17 10:09 MW [id number] 08/20/17 10:16 MW Document 08/27/17 09:59 MW [id number] 08/27/17 10:19 MW 08/20/17 08/27/17 10:09 09:59 Wound Center Nurse 2 #3 LEFT PLANTAR 1ST METATARSAL HEAD -Time 10:10 10:00 -Correct Patient Yes Yes -Correct Side, Site, Position Yes Yes -Correct Procedure Yes Yes -Procedure Performed Yes Yes -Type of Procedure Debridement Debridement -Clinical Debridement Subcutaneous Subcutaneous -Post Debridement Size (cm) - Length 1.1 1.0 -Post Debridement Size (cm) - Width 1.2 1.2 -Post Debridement Size (cm) - Depth 0.4 0.3 -Total Square Cm 1.32 1.20 -Wound/Ulcer Outcome Not Healed Not Healed -Ulcer Cleansing Rinsed/ Rinsed/ Irrigated with Irrigated with Saline Saline -Foul Odor after Cleansing No No -Bioengineered Tissue No No -Bleeding Controlled with Pressure Pressure -Treatment Response Procedure Procedure Tolerated Well Tolerated Well Pain Scale: 0-10 Numeric Is Patient Pain Free? Yes Yes Wound debrided: Left plantar medial distal forefoot Laterality: Left Type of Debridement: Excisional debridement Anesthesia Used: 4% Lidocaine Solution Depth: in the subcutaneous layer Percentage of wound debrided: 100 Instrument Used: 5mm curette, #15 blade, - - tissue nipper Tissue Removed: adherent slough, fibrin, hyperkeratotic tissue, undermining tissue Severity: Fat Layer Exposed Amount of bleeding with debridement: Moderate Bleeding Controlled with: Pressure, Silver Nitrate Patient tolerated procedure well Assessment/Plan Active Problems Neuropathic ulcer of left foot with fat layer exposed (Acute) Delayed wound healing (Acute) Obesity (Acute) Idiopathic neuropathy (Acute) Assessment: Ulcer left foot with fat layer exposed. idiopathic neuropathy. obesity Plan: Patient was examined and evaluated again today. Ulcer site was debrided as noted in the clinical panel. Ulcer site was dressed with Aquacel Ag to the base followed by dry sterile dressing. The patient is to change this daily. Offloading the ulcer site was discussed in great detail with the patient again today and the importance of doing so. It was stressed the importance of keeping this area offloaded as much as possible, or any other wound care we do will not matter. He had a pair of accommodative orthotics made at [facility] last year, however, there is no accommodation in the site of the current ulcer. Patient will see [facility] next . At his visit today, annother larger offloading pad was fashioned and applied to the patient' s orthotic to help offload the area for the time being. Dr. Pillai cultured the patient's ulcer on August 12 and was shown to grow some staph aureus as well as pseudomonas aeruginosa. He started the patient on ciprofloxacin and he was given a 10 day supply of which the patient has a day left of. The patient was instructed to continue to take this antibiotic until complete. Baseline lab work was reviewed today that was ordered at last visit. These results will be evaluated prior to the patient's next visit. Patient was instructed to eat a high protein diet to help accelerate ulcer healing. Patient was educated on all signs and symptoms of local and systemic infection and is instructed to go to the ER immediately should he notice any. All questions were answered to the patient's satisfaction. Patient will follow-up in clinic in 1 week or sooner if needed.
[2017-09-03 08:19] VITALS: BP 136/70; PULSE 72; RESP 18; TEMP 37.1; BMI 35.5
--- NOTE | 2017-09-03 09:32 | PCM.WC.PN ---
(1) Neuropathic ulcer of left foot with fat layer exposed Status: Acute Current Visit: Yes Code(s): L97.522 - Non-pressure chronic ulcer of other part of left foot with fat layer exposed (2) Delayed wound healing Status: Acute Current Visit: Yes Code(s): T14.8XXD - Other injury of unspecified body region, subsequent encounter (3) Malnutrition Status: Suspected Current Visit: Yes Code(s): E46 - Unspecified protein-calorie malnutrition (4) Obesity Status: Acute Current Visit: Yes Code(s): E66.9 - Obesity, unspecified (5) Idiopathic neuropathy Status: Acute Current Visit: Yes Code(s): G60.9 - Hereditary and idiopathic neuropathy, unspecified Type of Wound Date of Service: 09/03/17 Chief Complaint: ulcer of left great toe History of Wound: Patient presents to wound center today with a non healing ulcer to the distal plantar medial left foot. He says he thinks he had a callus and blister in the area that started the ulcer. He noticed it about a week and a half ago. He has had ulcers in the past, so for the last week and a half he has tried to dress the area with aquacel ag that he had left over from the past. He says he has not noticed it getting much worse, but he has not noticed an improvement. He denies any purulence or significant amount of drainage to the area. He saw Dr. Pillai on August 12 who cultured the ulcer site and started the patietn on 10 days of Ciprofloxacin one the sensitivity came back. Patient says he started taking the medication 2 days ago. Patient works driving a forklift full-time. He had accommodative inserts made at [facility] close to a year ago, however, the area of the previous ulcre is not an offloaded area. Patient denies any feeling of nausea, vomiting, fever, chills, or shortness of breath. Progress of Wound: Patient presents for third week of care and has had daily dressing changes consistig of aqucel ag and a dry sterile dressing. He says he has been wearing his offloading padding in his orhotic, and it was working well he thought until two days ago when it bunched up in his shoe. He sees [facility] tomorrow. Patient says he has not noticed any purulence or any other signs of infection. He denies any nausea, vomiting, fever, or chills today. - Physical Exam Vital Signs Temp Pulse Resp BP 98.7 F 72 18 136/70 H 09/03/17 08:19 09/03/17 08:19 09/03/17 08:19 09/03/17 08:19 General: Alert, Oriented x3, Cooperative, No apparent distress Extremities: Capillary Refill Less than 3 Seconds, No Calf Tenderness - negative hannah and byrne sign bilateral, Peripheral Pulses Normal - DP and PT pulses palpable Skin: Ulcer/ Wound - Ulcer to plantar distal left forefoot, just distal to the 1st metatarsal head. Ulcer base was noted to again have adherent slough and fibrotic tissue with some granular tissue to base as well as hyperkeratotic rim. No significant change in size today. There was also a small amount of undermining appreciated around the entire ulcer again today. There is still no probing to bone noted. There is no purulence, malodor, cellulitis, or any other signs of local infection appreciated. Wound Measurements and Assessment WC - Nurse 1 - General Ulcer Measurement Start: 08/20/17 09:18 Freq: Status: Active Protocol: Activity Type Activity Date Activity User E-Sign Co-Sign Detail Recorded Client Recorded Date Recorded By Document 09/03/17 08:19 DL [id number] 09/03/17 08:26 DL 09/03/17 08:19 Wound Center Nurse 1 [Ulcer Assessment] #3 LEFT PLANTAR 1ST METATARSAL HEAD -Current Size (cm) - Length 0.7 -Current Size (cm) - Width 0.7 -Current Size (cm) - Depth 0.3 -Total Square Cm 0.49 -Photo Taken No -Exudate Amt None Present (0 %) -Exudate Type Serosanguineous -Wound Margin Thickened -Granulation Amt Large (67-100%) -Granulation Quality [place] -Necrosis Amt Small (1-33%) -Necrotic Tissue Type Adherent Slough -Structure Exposed N/A -Texture (Bernice-wound Skin Appearance) Callus -Moisture (Bernice-wound Skin Appearance No Abnormality ) -Color (Bernice-wound Skin Appearance) No Abnormality -Temperature (Bernice-wound Skin No Abnormality Appearance) (Pt Warm) -Ulcer Cleansing Wound Cleanser -Foul Odor after Cleansing No -Anesthetic Used 4% Lidocaine Solution WC - Nurse 2 - General Ulcer CM Notes Start: 08/20/17 09:18 Freq: Status: Active Protocol: Activity Type Activity Date Activity User E-Sign Co-Sign Detail Recorded Client Recorded Date Recorded By Document 09/03/17 08:49 MW [id number] 09/03/17 09:00 MW 09/03/17 08:49 Wound Center Nurse 2 [Procedure/Treatment] -Time 08:49 -Correct Patient Yes -Correct Side, Site, Position Yes -Correct Procedure Yes -Procedure Performed Yes -Type of Procedure Debridement -Clinical Debridement Subcutaneous -Post Debridement Size (cm) - Length 1.1 -Post Debridement Size (cm) - Width 1.0 -Post Debridement Size (cm) - Depth 0.3 -Total Square Cm 1.10 -Wound/Ulcer Outcome Not Healed -Ulcer Cleansing Rinsed/ Irrigated with Saline -Foul Odor after Cleansing No -Bioengineered Tissue No -Bleeding Controlled with Pressure -Treatment Response Procedure Tolerated Well [See Physician Procedure note for Specifics] Pain Scale: 0-10 Numeric [Pain] -Is Patient Pain Free? Yes Musculoskeletal: - - muscle strength 5/5 for all dorsiflexors, plantarflexors, inverters, and everters of the foot Neurological: - - protective sensation absent to all pedal sites tested to the forefoot using a 5.07 semmes-cody monofilament. Psych/Mental Status: Normal Affect, Appropriate Debridement Note Post-Debridement Measurements/Treatment - Nurse 2 - General Ulcer CM Notes Start: 08/20/17 09:18 Freq: Status: Active Protocol: Activity Type Activity Date Activity User E-Sign Co-Sign Detail Recorded Client Recorded Date Recorded By Document 08/20/17 10:09 MW [id number] 08/20/17 10:16 MW Document 08/27/17 09:59 MW [id number] 08/27/17 10:19 MW Document 09/03/17 08:49 MW [id number] 09/03/17 09:00 MW 08/20/17 08/27/17 09/03/17 10:09 09:59 08:49 Wound Center Nurse 2 #3 LEFT PLANTAR 1ST METATARSAL HEAD -Time 10:10 10:00 08:49 -Correct Patient Yes Yes Yes -Correct Side, Site, Position Yes Yes Yes -Correct Procedure Yes Yes Yes -Procedure Performed Yes Yes Yes -Type of Procedure Debridement Debridement Debridement -Clinical Debridement Subcutaneous Subcutaneous Subcutaneous -Post Debridement Size (cm) - Length 1.1 1.0 1.1 -Post Debridement Size (cm) - Width 1.2 1.2 1.0 -Post Debridement Size (cm) - Depth 0.4 0.3 0.3 -Total Square Cm 1.32 1.20 1.10 -Wound/Ulcer Outcome Not Healed Not Healed Not Healed -Ulcer Cleansing Rinsed/ Rinsed/ Rinsed/ Irrigated with Irrigated with Irrigated with Saline Saline Saline -Foul Odor after Cleansing No No No -Bioengineered Tissue No No No -Bleeding Controlled with Pressure Pressure Pressure -Treatment Response Procedure Procedure Procedure Tolerated Well Tolerated Well Tolerated Well Pain Scale: 0-10 Numeric Is Patient Pain Free? Yes Yes Yes Wound debrided: left plantar medial distal forefoot Laterality: Left Type of Debridement: Excisional debridement Anesthesia Used: 4% Lidocaine Solution Depth: in the subcutaneous layer Percentage of wound debrided: 100 Instrument Used: - - tissue nipper Tissue Removed: adherent slough, fibrin, hyperkeratotic tissue, undermining tissue Severity: Fat Layer Exposed Amount of bleeding with debridement: Mild Bleeding Controlled with: Pressure Patient tolerated procedure well Assessment/Plan Active Problems Neuropathic ulcer of left foot with fat layer exposed (Acute) Delayed wound healing (Acute) Obesity (Acute) Idiopathic neuropathy (Acute) Assessment: Ulcer left foot with fat layer exposed. idiopathic neuropathy. obesity Plan: Patient was examined and evaluated again today. Ulcer site was debrided as noted in the clinical panel. No significant change in ulcer size since last week. Ulcer site was dressed with Aquacel Ag to the base followed by dry sterile dressing. The patient is to change this daily. The importance of offloading his ulcer site was again stressed to this patient. It was stressed the importance of keeping this area offloaded as much as possible, or any other wound care we do will not matter. He had a pair of accommodative orthotics made at [facility] last year, however, there is no accommodation in the site of the current ulcer. Patient will see [facility] tomorrow. At his visit today, another offloading pad was fashioned and applied to the patient's orthotic to help offload the area until he can get a permanent accommodation in his orthotic. Patient says he has finished his antibiotics at this time. Patient was instructed to eat a high protein diet to help accelerate ulcer healing. Patient was educated on all signs and symptoms of local and systemic infection and is instructed to go to the ER immediately should he notice any. All questions were answered to the patient's satisfaction. Patient will follow-up in clinic in 2 weeks, as he is going to [place] to visit his daughter. He was instructed to call the office at any time with any questions or concerns or go to the ER should he notice any signs or symptoms of infection before he returns to wound center. He understands this.
--- NOTE | 2017-09-03 09:42 | PN.PCM_ITS ---
(1) Neuropathic ulcer of left foot with fat layer exposed Status: Acute Current Visit: Yes Code(s): L97.522 - Non-pressure chronic ulcer of other part of left foot with fat layer exposed (2) Delayed wound healing Status: Acute Current Visit: Yes Code(s): T14.8XXD - Other injury of unspecified body region, subsequent encounter (3) Malnutrition Status: Suspected Current Visit: Yes Code(s): E46 - Unspecified protein- calorie malnutrition (4) Obesity Status: Acute Current Visit: Yes Code(s): E66.9 - Obesity, unspecified (5) Idiopathic neuropathy Status: Acute Current Visit: Yes Code(s): G60.9 - Hereditary and idiopathic neuropathy, unspecified Type of Wound Date of Service: 09/03/17 Chief Complaint: ulcer of left great toe History of Wound: Patient presents to wound center today with a non healing ulcer to the distal plantar medial left foot. He says he thinks he had a callus and blister in the area that started the ulcer. He noticed it about a week and a half ago. He has had ulcers in the past, so for the last week and a half he has tried to dress the area with aquacel ag that he had left over from the past. He says he has not noticed it getting much worse, but he has not noticed an improvement. He denies any purulence or significant amount of drainage to the area. He saw Dr. Pillai on August 12 who cultured the ulcer site and started the patietn on 10 days of Ciprofloxacin one the sensitivity came back. Patient says he started taking the medication 2 days ago. Patient works driving a forklift full-time. He had accommodative inserts made at [facility] close to a year ago, however, the area of the previous ulcre is not an offloaded area. Patient denies any feeling of nausea, vomiting, fever, chills, or shortness of breath. Progress of Wound: Patient presents for third week of care and has had daily dressing changes consistig of aqucel ag and a dry sterile dressing. He says he has been wearing his offloading padding in his orhotic, and it was working well he thought until two days ago when it bunched up in his shoe. He sees [facility] tomorrow. Patient says he has not noticed any purulence or any other signs of infection. He denies any nausea, vomiting, fever, or chills today. - Physical Exam Vital Signs Temp Pulse Resp BP 98.7 F 72 18 136/70 H 09/03/17 08:19 09/03/17 08:19 09/03/17 08:19 09/03/17 08:19 General: Alert, Oriented x3, Cooperative, No apparent distress Extremities: Capillary Refill Less than 3 Seconds, No Calf Tenderness - negative hannah and byrne sign bilateral, Peripheral Pulses Normal - DP and PT pulses palpable Skin: Ulcer/ Wound - Ulcer to plantar distal left forefoot, just distal to the 1st metatarsal head. Ulcer base was noted to again have adherent slough and fibrotic tissue with some granular tissue to base as well as hyperkeratotic rim. No significant change in size today. There was also a small amount of undermining appreciated around the entire ulcer again today. There is still no probing to bone noted. There is no purulence, malodor, cellulitis, or any other signs of local infection appreciated. Wound Measurements and Assessment WC - Nurse 1 - General Ulcer Measurement Start: 08/20/17 09:18 Freq: Status: Active Protocol: Activity Type Activity Date Activity User E-Sign Co-Sign Detail Recorded Client Recorded Date Recorded By Document 09/03/17 08:19 DL [id number] 09/03/17 08:26 DL 09/03/17 08:19 Wound Center Nurse 1 [Ulcer Assessment] #3 LEFT PLANTAR 1ST METATARSAL HEAD -Current Size (cm) - Length 0.7 -Current Size (cm) - Width 0.7 -Current Size (cm) - Depth 0.3 -Total Square Cm 0.49 -Photo Taken No -Exudate Amt None Present (0 %) -Exudate Type Serosanguineous -Wound Margin Thickened -Granulation Amt Large (67-100%) -Granulation Quality [place] -Necrosis Amt Small (1-33%) -Necrotic Tissue Type Adherent Slough -Structure Exposed N/A -Texture (Bernice-wound Skin Appearance) Callus -Moisture (Bernice-wound Skin Appearance No Abnormality ) -Color (Bernice-wound Skin Appearance) No Abnormality -Temperature (Bernice-wound Skin No Abnormality Appearance) (Pt Warm) -Ulcer Cleansing Wound Cleanser -Foul Odor after Cleansing No -Anesthetic Used 4% Lidocaine Solution WC - Nurse 2 - General Ulcer CM Notes Start: 08/20/17 09:18 Freq: Status: Active Protocol: Activity Type Activity Date Activity User E-Sign Co-Sign Detail Recorded Client Recorded Date Recorded By Document 09/03/17 08:49 MW [id number] 09/03/17 09:00 MW 09/03/17 08:49 Wound Center Nurse 2 [Procedure/Treatment] -Time 08:49 -Correct Patient Yes -Correct Side, Site, Position Yes -Correct Procedure Yes -Procedure Performed Yes -Type of Procedure Debridement -Clinical Debridement Subcutaneous -Post Debridement Size (cm) - Length 1.1 -Post Debridement Size (cm) - Width 1.0 -Post Debridement Size (cm) - Depth 0.3 -Total Square Cm 1.10 -Wound/Ulcer Outcome Not Healed -Ulcer Cleansing Rinsed/ Irrigated with Saline -Foul Odor after Cleansing No -Bioengineered Tissue No -Bleeding Controlled with Pressure -Treatment Response Procedure Tolerated Well [See Physician Procedure note for Specifics] Pain Scale: 0-10 Numeric [Pain] -Is Patient Pain Free? Yes Musculoskeletal: - - muscle strength 5/5 for all dorsiflexors, plantarflexors, inverters, and everters of the foot Neurological: - - protective sensation absent to all pedal sites tested to the forefoot using a 5.07 semmes-cody monofilament. Psych/Mental Status: Normal Affect, Appropriate Debridement Note Post-Debridement Measurements/Treatment - Nurse 2 - General Ulcer CM Notes Start: 08/20/17 09:18 Freq: Status: Active Protocol: Activity Type Activity Date Activity User E-Sign Co-Sign Detail Recorded Client Recorded Date Recorded By Document 08/20/17 10:09 MW [id number] 08/20/17 10:16 MW Document 08/27/17 09:59 MW [id number] 08/27/17 10:19 MW Document 09/03/17 08:49 MW [id number] 09/03/17 09:00 MW 08/20/17 08/27/17 09/03/17 10:09 09:59 08:49 Wound Center Nurse 2 #3 LEFT PLANTAR 1ST METATARSAL HEAD -Time 10:10 10:00 08:49 -Correct Patient Yes Yes Yes -Correct Side, Site, Position Yes Yes Yes -Correct Procedure Yes Yes Yes -Procedure Performed Yes Yes Yes -Type of Procedure Debridement Debridement Debridement -Clinical Debridement Subcutaneous Subcutaneous Subcutaneous -Post Debridement Size (cm) - Length 1.1 1.0 1.1 -Post Debridement Size (cm) - Width 1.2 1.2 1.0 -Post Debridement Size (cm) - Depth 0.4 0.3 0.3 -Total Square Cm 1.32 1.20 1.10 -Wound/Ulcer Outcome Not Healed Not Healed Not Healed -Ulcer Cleansing Rinsed/ Rinsed/ Rinsed/ Irrigated with Irrigated with Irrigated with Saline Saline Saline -Foul Odor after Cleansing No No No -Bioengineered Tissue No No No -Bleeding Controlled with Pressure Pressure Pressure -Treatment Response Procedure Procedure Procedure Tolerated Well Tolerated Well Tolerated Well Pain Scale: 0-10 Numeric Is Patient Pain Free? Yes Yes Yes Wound debrided: left plantar medial distal forefoot Laterality: Left Type of Debridement: Excisional debridement Anesthesia Used: 4% Lidocaine Solution Depth: in the subcutaneous layer Percentage of wound debrided: 100 Instrument Used: - - tissue nipper Tissue Removed: adherent slough, fibrin, hyperkeratotic tissue, undermining tissue Severity: Fat Layer Exposed Amount of bleeding with debridement: Mild Bleeding Controlled with: Pressure Patient tolerated procedure well Assessment/Plan Active Problems Neuropathic ulcer of left foot with fat layer exposed (Acute) Delayed wound healing (Acute) Obesity (Acute) Idiopathic neuropathy (Acute) Assessment: Ulcer left foot with fat layer exposed. idiopathic neuropathy. obesity Plan: Patient was examined and evaluated again today. Ulcer site was debrided as noted in the clinical panel. No significant change in ulcer size since last week. Ulcer site was dressed with Aquacel Ag to the base followed by dry sterile dressing. The patient is to change this daily. The importance of offloading his ulcer site was again stressed to this patient. It was stressed the importance of keeping this area offloaded as much as possible, or any other wound care we do will not matter. He had a pair of accommodative orthotics made at [facility] last year, however, there is no accommodation in the site of the current ulcer. Patient will see [facility] tomorrow. At his visit today, another offloading pad was fashioned and applied to the patient's orthotic to help offload the area until he can get a permanent accommodation in his orthotic. Patient says he has finished his antibiotics at this time. Patient was instructed to eat a high protein diet to help accelerate ulcer healing. Patient was educated on all signs and symptoms of local and systemic infection and is instructed to go to the ER immediately should he notice any. All questions were answered to the patient's satisfaction. Patient will follow- up in clinic in 2 weeks, as he is going to [place] to visit his daughter. He was instructed to call the office at any time with any questions or concerns or go to the ER should he notice any signs or symptoms of infection before he returns to wound center. He understands this.
== END 2017-09-05 23:59 ==
LOC: WC 08:30
PROVIDERS: Family Provider Family Medicine; PCP Family Medicine; Visit Provider Podiatrist
DX: L97.522 Non-pressure chronic ulcer of other part of left foot with fat layer exposed (principal); G60.9 Hereditary and idiopathic neuropathy, unspecified; E66.9 Obesity, unspecified; Z68.35 Body mass index [BMI] 35.0-35.9, adult; Z79.899 Other long term (current) drug therapy; Z79.82 Long term (current) use of aspirin
CPT/HCPCS: 11042; 36415; 80053; 83036; 84134; 85025; 85652; 99213; G0463

== ENCOUNTER 2017-10-01 08:15 | Outpatient (RCR) | payer OTHER, SELFPAY ==
[2017-09-06 01:17] VITALS: PULSE 72; RESP 18; TEMP 37.1
[2017-09-17 08:41] VITALS: BP 141/73; PULSE 71; RESP 18; TEMP 37.1
--- NOTE | 2017-09-17 09:18 | PCM.WC.PN ---
(1) Neuropathic ulcer of left foot with fat layer exposed Status: Acute Current Visit: No Code(s): L97.522 - Non-pressure chronic ulcer of other part of left foot with fat layer exposed (2) Delayed wound healing Status: Acute Current Visit: No Code(s): T14.8XXD - Other injury of unspecified body region, subsequent encounter (3) Malnutrition Status: Suspected Current Visit: No Code(s): E46 - Unspecified protein-calorie malnutrition (4) Obesity Status: Acute Current Visit: No Code(s): E66.9 - Obesity, unspecified (5) Idiopathic neuropathy Status: Acute Current Visit: No Code(s): G60.9 - Hereditary and idiopathic neuropathy, unspecified Type of Wound Date of Service: 09/17/17 Chief Complaint: ulcer of left great toe History of Wound: Patient presents to wound center today with a non healing ulcer to the distal plantar medial left foot. He says he thinks he had a callus and blister in the area that started the ulcer. He noticed it about a week and a half ago. He has had ulcers in the past, so for the last week and a half he has tried to dress the area with aquacel ag that he had left over from the past. He says he has not noticed it getting much worse, but he has not noticed an improvement. He denies any purulence or significant amount of drainage to the area. He saw Dr. Pillai on August 12 who cultured the ulcer site and started the patietn on 10 days of Ciprofloxacin one the sensitivity came back. Patient says he started taking the medication 2 days ago. 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 He had accommodative inserts made at [employer] close to a year ago, however, the area of the previous ulcre is not an offloaded area. Patient denies any feeling of nausea, vomiting, fever, chills, or shortness of breath. Progress of Wound: Patient presents to clinic today after missing a week of care due to being on vacation. He has been continuing his daily dressing changes over the last couple of weeks as instructed. Patient has been wearing insert that was modified to accommodate the area of the ulcer at [employer]. Patient says he has not noticed any purulence or any other signs of infection. He will have affinity graft placed today. He denies any nausea, vomiting, fever, or chills today. - Physical Exam Vital Signs Temp Pulse Resp BP 98.7 F 71 18 141/73 H 09/17/17 08:41 09/17/17 08:41 09/17/17 08:41 09/17/17 08:41 General: Alert, Oriented x3, Cooperative, No apparent distress Extremities: Capillary Refill Less than 3 Seconds, No Calf Tenderness - negative hannah and byrne sign, Peripheral Pulses Normal - DP and PT pulses normal Skin: Ulcer/ Wound - Ulcer to plantar distal left forefoot, towards the distal end of the first met head. Ulcer base is a mixture of adhernt slough, fibrin, biofilm, and granular tissue. There is hyperkeratotic rim with very slight amount of undermining in all directions. There continues to be no probing, tracking noted. There is no purulence, malodor, cellulitis, increased warmth, or any other signs of local infection appreciated. Appears smaller than last visit. Wound Measurements and Assessment WC - Nurse 1 - General Ulcer Measurement Start: 09/17/17 08:41 Freq: Status: Active Protocol: Activity Type Activity Date Activity User E-Sign Co-Sign Detail Recorded Client Recorded Date Recorded By Document 09/17/17 08:41 DV [id number] 09/17/17 08:45 DV 09/17/17 08:41 Wound Center Nurse 1 [Ulcer Assessment] #3 LEFT PLANTAR 1ST METATARSAL HEAD -Combined with other wound No -Current Size (cm) - Length 0.4 -Current Size (cm) - Width 0.5 -Current Size (cm) - Depth 0.3 -Total Square Cm 0.20 -Date of Last Picture (Recall this 09/17/17 field) -Photo Taken Yes -Epithelialization None Present -Tunneling No -Undermining/Tunneling No -Circular Undermining Yes -Classification - Thickness Full Thickness without Exposed Support Structure -Exudate Amt Small (1-33%) -Exudate Type Serosanguineous -Wound Margin Distinct, Outline Attached -Granulation Amt None Present (0 %) -Granulation Quality N/A -Necrosis Amt Large (67-100%) -Necrotic Tissue Type Adherent Slough -Structure Exposed None/Limited to Skin Breakdown -Texture (Bernice-wound Skin Appearance) No Abnormality Assessed -Moisture (Bernice-wound Skin Appearance Assessed ) Weeping Dry/Scaly -Color (Bernice-wound Skin Appearance) No Abnormality Assessed -Temperature (Bernice-wound Skin No Abnormality Appearance) (Pt Warm) -Tenderness on Palpation (Bernice-wound No Skin Appearance) -Ulcer Cleansing Rinsed/ Irrigated with Saline -Foul Odor after Cleansing No -Anesthetic Used 5% Lidocaine Gel - Nurse 2 - General Ulcer CM Notes Start: 09/17/17 08:41 Freq: Status: Active Protocol: Activity Type Activity Date Activity User E-Sign Co-Sign Detail Recorded Client Recorded Date Recorded By Document 09/17/17 09:00 MW [id number] 09/17/17 09:13 MW 09/17/17 09:00 Wound Center Nurse 2 [Procedure/Treatment] -Time 09:01 -Correct Patient Yes -Correct Side, Site, Position Yes -Correct Procedure Yes -Procedure Performed Yes -Type of Procedure Debridement -Clinical Debridement Subcutaneous -Post Debridement Size (cm) - Length 0.8 -Post Debridement Size (cm) - Width 0.6 -Post Debridement Size (cm) - Depth 0.3 -Total Square Cm 0.48 -Wound/Ulcer Outcome Not Healed -Ulcer Cleansing Rinsed/ Irrigated with Saline -Foul Odor after Cleansing No -Bioengineered Tissue No -Bleeding Controlled with Pressure -Treatment Response Procedure Tolerated Well [See Physician Procedure note for Specifics] Pain Scale: 0-10 Numeric [Pain] -Is Patient Pain Free? Yes Musculoskeletal: No Tenderness to Palpation of Joints or Extremities, - - Muscle strength 5/5 for all lower extremity muscle groups tested. Neurological: - - Protective sensation absent to all pedal sites tested to the forefoot using a 5.07 [place] Brett monofilament. Psych/Mental Status: Normal Affect, Appropriate Debridement Note Post-Debridement Measurements/Treatment - Nurse 2 - General Ulcer CM Notes Start: 09/17/17 08:41 Freq: Status: Active Protocol: Activity Type Activity Date Activity User E-Sign Co-Sign Detail Recorded Client Recorded Date Recorded By Document 09/17/17 09:00 MW [id number] 09/17/17 09:13 MW 09/17/17 09:00 Wound Center Nurse 2 #3 LEFT PLANTAR 1ST METATARSAL HEAD -Time 09:01 -Correct Patient Yes -Correct Side, Site, Position Yes -Correct Procedure Yes -Procedure Performed Yes -Type of Procedure Debridement -Clinical Debridement Subcutaneous -Post Debridement Size (cm) - Length 0.8 -Post Debridement Size (cm) - Width 0.6 -Post Debridement Size (cm) - Depth 0.3 -Total Square Cm 0.48 -Wound/Ulcer Outcome Not Healed -Ulcer Cleansing Rinsed/ Irrigated with Saline -Foul Odor after Cleansing No -Bioengineered Tissue No -Bleeding Controlled with Pressure -Treatment Response Procedure Tolerated Well Pain Scale: 0-10 Numeric Is Patient Pain Free? Yes Wound debrided: Left plantar medial distal forefoot Laterality: Left Type of Debridement: Excisional debridement Anesthesia Used: 4% Lidocaine Solution Depth: in the subcutaneous layer Percentage of wound debrided: 100 Instrument Used: #15 blade, - - Tissue nipper Tissue Removed: Adherent slough, fibrin, biofilm Severity: Fat Layer Exposed Amount of bleeding with debridement: Mild Bleeding Controlled with: Pressure Patient tolerated procedure well Assessment/Plan Assessment: Ulcer left foot with fat layer exposed. idiopathic neuropathy. obesity Plan: Patient was examined and evaluated again today. Ulcer site was subcutaneously debrided as noted in the clinical panel. Ulcer site appears to be slightly improved in both appearance and size since last visit. Following debridement, the ulcer site was covered with a 1.5 x 1.5 affinity graft. This was the first affinity graft today. Following placement of affinity it was secured with steri strips, followed by wound veil and more steri strips, followed by a dry sterile dressing. The patient was instructed that he can change the top dressing if needed down to the level of the wound veil, but to not go past that level. Patient understands. Product rep and myself answered any questions the patient had. The importance of offloading his ulcer site was again stressed to this patient again today. It was stressed the importance of keeping this area offloaded as much as possible, or any other wound care we do will not matter. He had a pair of accommodative orthotics made at [employer] last year, however, there is no accommodation in the site of the current ulcer. Patient had a new accommodation made into his orthotics at [employer] to help further offload the area. Patient says he has finished his antibiotics at this time. Patient was instructed to eat a high protein diet to help accelerate ulcer healing. Patient was educated on all signs and symptoms of local and systemic infection and is instructed to go to the ER immediately should he notice any. All questions were answered to the patient's satisfaction. Patient will follow-up in clinic in 1 week. He was instructed to call the office at any time with any questions or concerns or go to the ER should he notice any signs or symptoms of infection before he returns to wound center. He understands this.
[2017-09-24 08:29] VITALS: BP 134/72; PULSE 76; RESP 18; TEMP 36.4
--- NOTE | 2017-09-24 13:08 | PCM.WC.PN ---
(1) Neuropathic ulcer of left foot with fat layer exposed Status: Acute Current Visit: No Code(s): L97.522 - Non-pressure chronic ulcer of other part of left foot with fat layer exposed (2) Delayed wound healing Status: Acute Current Visit: No Code(s): T14.8XXD - Other injury of unspecified body region, subsequent encounter (3) Malnutrition Status: Suspected Current Visit: No Code(s): E46 - Unspecified protein-calorie malnutrition (4) Obesity Status: Acute Current Visit: No Code(s): E66.9 - Obesity, unspecified (5) Idiopathic neuropathy Status: Acute Current Visit: No Code(s): G60.9 - Hereditary and idiopathic neuropathy, unspecified Type of Wound Date of Service: 09/24/17 Chief Complaint: ulcer of left great toe History of Wound: Patient presents to wound center today with a non healing ulcer to the distal plantar medial left foot. He says he thinks he had a callus and blister in the area that started the ulcer. He noticed it about a week and a half ago. He has had ulcers in the past, so for the last week and a half he has tried to dress the area with aquacel ag that he had left over from the past. He says he has not noticed it getting much worse, but he has not noticed an improvement. He denies any purulence or significant amount of drainage to the area. He saw Dr. Pillai on August 12 who cultured the ulcer site and started the patietn on 10 days of Ciprofloxacin one the sensitivity came back. Patient says he started taking the medication 2 days ago. 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 He had accommodative inserts made at [employer] close to a year ago, however, the area of the previous ulcre is not an offloaded area. Patient denies any feeling of nausea, vomiting, fever, chills, or shortness of breath. Progress of Wound: Patient presents to clinic today for follow up care. He has been following the instructions given at last visit and not taking his dressing down, especially past the wound veil layer. Patient has been wearing insert that was modified to accommodate the area of the ulcer at [employer]. Patient says he has not noticed any purulence or any other signs of infection. He will have second affinity graft placed today. He denies any nausea, vomiting, fever, or chills today. - Physical Exam Vital Signs Temp Pulse Resp BP 97.5 F L 76 18 134/72 H 09/24/17 08:29 09/24/17 08:29 09/24/17 08:29 09/24/17 08:29 General: Alert, Oriented x3, Cooperative, No apparent distress Extremities: Capillary Refill Less than 3 Seconds, No Calf Tenderness - negative hannah and byrne sign, Peripheral Pulses Normal - DP and PT pulses palpable Skin: Ulcer/ Wound - Ulcer to plantar distal left forefoot towards the distal end of the first metatarsal head. The ulcer base is a mixture of adherent slough, fibrin, biofilm, and granular tissue. There is a slight hyperkeratotic rim appreciated again today with a very small amount of undermining appreciated. There continues to be no probing to bone, and no tracking. There is no purulence, malodor, cellulitis, increased warmth or any other signs of local infection appreciated at this time. The ulcer again appears smaller than last visit and to be improved in appearance. Wound Measurements and Assessment WC - Nurse 1 - General Ulcer Measurement Start: 09/17/17 08:41 Freq: Status: Active Protocol: Activity Type Activity Date Activity User E-Sign Co-Sign Detail Recorded Client Recorded Date Recorded By Document 09/24/17 08:29 [id number] 09/24/17 08:38 09/24/17 08:29 Wound Center Nurse 1 [Ulcer Assessment] #3 LEFT PLANTAR 1ST METATARSAL HEAD -Combined with other wound No -Current Size (cm) - Length 0.4 -Current Size (cm) - Width 0.3 -Current Size (cm) - Depth 0.1 -Total Square Cm 0.12 -Date of Last Picture (Recall this 09/24/17 field) -Photo Taken Yes -Epithelialization Small 1-33% -Tunneling No -Undermining/Tunneling No -Circular Undermining No -Classification - Thickness Full Thickness without Exposed Support Structure -Exudate Amt Small (1-33%) -Exudate Type Serosanguineous -Wound Margin Distinct, Outline Attached -Granulation Quality Pale [place] -Slough/Fibrin Yes -Necrosis Amt Small (1-33%) -Necrotic Tissue Type Adherent Slough -Structure Exposed Fascia Fat Layer Exposed -Texture (Bernice-wound Skin Appearance) Callus Scarring -Moisture (Bernice-wound Skin Appearance Dry/Scaly ) -Color (Bernice-wound Skin Appearance) No Abnormality -Temperature (Bernice-wound Skin No Abnormality Appearance) (Pt Warm) -Tenderness on Palpation (Bernice-wound No Skin Appearance) -Ulcer Cleansing Rinsed/ Irrigated with Saline -Foul Odor after Cleansing No -Anesthetic Used 5% Lidocaine Gel [Edema Assessment] -Lower Limb Edema Present No WC - Nurse 2 - General Ulcer CM Notes Start: 09/17/17 08:41 Freq: Status: Active Protocol: Activity Type Activity Date Activity User E-Sign Co-Sign Detail Recorded Client Recorded Date Recorded By Document 09/24/17 09:10 MW [id number] 09/24/17 09:18 MW 09/24/17 09:10 Wound Center Nurse 2 [Procedure/Treatment] #3 LEFT PLANTAR 1ST METATARSAL HEAD -Time 09:11 -Correct Patient Yes -Correct Side, Site, Position Yes -Correct Procedure Yes -Procedure Performed Yes -Type of Procedure Debridement -Clinical Debridement Subcutaneous -Post Debridement Size (cm) - Length 0.5 -Post Debridement Size (cm) - Width 0.6 -Post Debridement Size (cm) - Depth 0.2 -Total Square Cm 0.30 -Wound/Ulcer Outcome Not Healed -Ulcer Cleansing Rinsed/ Irrigated with Saline -Foul Odor after Cleansing No -Bioengineered Tissue No -Bleeding Controlled with Pressure -Treatment Response Procedure Tolerated Well [See Physician Procedure note for Specifics] Pain Scale: 0-10 Numeric [Pain] -Is Patient Pain Free? Yes Musculoskeletal: No Tenderness to Palpation of Joints or Extremities Neurological: - - Protective sensation absent to all pedal sites tested to the forefoot using a 5.07 [place] Brett monofilament Psych/Mental Status: Normal Affect, Appropriate Debridement Note Post-Debridement Measurements/Treatment WC - Nurse 2 - General Ulcer CM Notes Start: 09/17/17 08:41 Freq: Status: Active Protocol: Activity Type Activity Date Activity User E-Sign Co-Sign Detail Recorded Client Recorded Date Recorded By Document 09/17/17 09:00 MW [id number] 09/17/17 09:13 MW Document 09/24/17 09:10 MW [id number] 09/24/17 09:18 MW 09/17/17 09/24/17 09:00 09:10 Wound Center Nurse 2 #3 LEFT PLANTAR 1ST METATARSAL HEAD -Time 09:01 09:11 -Correct Patient Yes Yes -Correct Side, Site, Position Yes Yes -Correct Procedure Yes Yes -Procedure Performed Yes Yes -Type of Procedure Debridement Debridement -Clinical Debridement Subcutaneous Subcutaneous -Post Debridement Size (cm) - Length 0.8 0.5 -Post Debridement Size (cm) - Width 0.6 0.6 -Post Debridement Size (cm) - Depth 0.3 0.2 -Total Square Cm 0.48 0.30 -Wound/Ulcer Outcome Not Healed Not Healed -Ulcer Cleansing Rinsed/ Rinsed/ Irrigated with Irrigated with Saline Saline -Foul Odor after Cleansing No No -Bioengineered Tissue No No -Bleeding Controlled with Pressure Pressure -Treatment Response Procedure Procedure Tolerated Well Tolerated Well Pain Scale: 0-10 Numeric Is Patient Pain Free? Yes Yes Wound debrided: Left plantar medial distal forefoot Laterality: Left Type of Debridement: Excisional debridement Anesthesia Used: 4% Lidocaine Solution Depth: in the subcutaneous layer Percentage of wound debrided: 100 Instrument Used: #15 blade, - - Tissue nipper Tissue Removed: Adherent slough, fibrin, biofilm, hyperkeratotic tissue Severity: Fat Layer Exposed Amount of bleeding with debridement: Mild Bleeding Controlled with: Pressure Patient tolerated procedure well Assessment/Plan Assessment: Ulcer left foot with fat layer exposed. idiopathic neuropathy. obesity Plan: Patient was examined and evaluated again today. Ulcer site was subcutaneously debrided as noted in the clinical panel. Ulcer site appears to be slightly improved in both appearance and size again this week. Following debridement, the ulcer site was covered with a 1.5 x 1.5 affinity graft. This was the second affinity graft today. Following placement of affinity it was secured with steri strips, followed by wound veil and more steri strips, followed by a dry sterile dressing. The patient was instructed that he can change the top dressing if needed down to the level of the wound veil, but to not go past that level. Patient understands. Product rep and myself answered any questions the patient had. The importance of offloading his ulcer site was again stressed to this patient again today. I stressed the importance of keeping this area offloaded as much as possible, or any other wound care we do will not matter. Patient had a new accommodation made into his orthotics at [facility] to help further offload the area. Patient was instructed to eat a high protein diet to help accelerate ulcer healing. Patient was educated on all signs and symptoms of local and systemic infection and is instructed to go to the ER immediately should he notice any. All questions were answered to the patient's satisfaction. Patient will follow-up in clinic in 1 week. He was instructed to call the office at any time with any questions or concerns or go to the ER should he notice any signs or symptoms of infection before he returns to wound center. He understands this.
--- NOTE | 2017-09-24 13:16 | PN.PCM_ITS ---
(1) Neuropathic ulcer of left foot with fat layer exposed Status: Acute Current Visit: No Code(s): L97.522 - Non-pressure chronic ulcer of other part of left foot with fat layer exposed (2) Delayed wound healing Status: Acute Current Visit: No Code(s): T14.8XXD - Other injury of unspecified body region, subsequent encounter (3) Malnutrition Status: Suspected Current Visit: No Code(s): E46 - Unspecified protein- calorie malnutrition (4) Obesity Status: Acute Current Visit: No Code(s): E66.9 - Obesity, unspecified (5) Idiopathic neuropathy Status: Acute Current Visit: No Code(s): G60.9 - Hereditary and idiopathic neuropathy, unspecified Type of Wound Date of Service: 09/24/17 Chief Complaint: ulcer of left great toe History of Wound: Patient presents to wound center today with a non healing ulcer to the distal plantar medial left foot. He says he thinks he had a callus and blister in the area that started the ulcer. He noticed it about a week and a half ago. He has had ulcers in the past, so for the last week and a half he has tried to dress the area with aquacel ag that he had left over from the past. He says he has not noticed it getting much worse, but he has not noticed an improvement. He denies any purulence or significant amount of drainage to the area. He saw Dr. Pillai on August 12 who cultured the ulcer site and started the patietn on 10 days of Ciprofloxacin one the sensitivity came back. Patient says he started taking the medication 2 days ago. 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 He had accommodative inserts made at [facility] close to a year ago, however, the area of the previous ulcre is not an offloaded area. Patient denies any feeling of nausea, vomiting, fever, chills, or shortness of breath. Progress of Wound: Patient presents to clinic today for follow up care. He has been following the instructions given at last visit and not taking his dressing down, especially past the wound veil layer. Patient has been wearing insert that was modified to accommodate the area of the ulcer at [employer]. Patient says he has not noticed any purulence or any other signs of infection. He will have second affinity graft placed today. He denies any nausea, vomiting , fever, or chills today. - Physical Exam Vital Signs Temp Pulse Resp BP 97.5 F L 76 18 134/72 H 09/24/17 08:29 09/24/17 08:29 09/24/17 08:29 09/24/17 08:29 General: Alert, Oriented x3, Cooperative, No apparent distress Extremities: Capillary Refill Less than 3 Seconds, No Calf Tenderness - negative hannah and byrne sign, Peripheral Pulses Normal - DP and PT pulses palpable Skin: Ulcer/ Wound - Ulcer to plantar distal left forefoot towards the distal end of the first metatarsal head. The ulcer base is a mixture of adherent slough, fibrin, biofilm, and granular tissue. There is a slight hyperkeratotic rim appreciated again today with a very small amount of undermining appreciated. There continues to be no probing to bone, and no tracking. There is no purulence, malodor, cellulitis, increased warmth or any other signs of local infection appreciated at this time. The ulcer again appears smaller than last visit and to be improved in appearance. Wound Measurements and Assessment WC - Nurse 1 - General Ulcer Measurement Start: 09/17/17 08:41 Freq: Status: Active Protocol: Activity Type Activity Date Activity User E-Sign Co-Sign Detail Recorded Client Recorded Date Recorded By Document 09/24/17 08:29 [id number] 09/24/17 08:38 09/24/17 08:29 Wound Center Nurse 1 [Ulcer Assessment] #3 LEFT PLANTAR 1ST METATARSAL HEAD -Combined with other wound No -Current Size (cm) - Length 0.4 -Current Size (cm) - Width 0.3 -Current Size (cm) - Depth 0.1 -Total Square Cm 0.12 -Date of Last Picture (Recall this 09/24/17 field) -Photo Taken Yes -Epithelialization Small 1-33% -Tunneling No -Undermining/Tunneling No -Circular Undermining No -Classification - Thickness Full Thickness without Exposed Support Structure -Exudate Amt Small (1-33%) -Exudate Type Serosanguineous -Wound Margin Distinct, Outline Attached -Granulation Quality [place] -Slough/Fibrin Yes -Necrosis Amt Small (1-33%) -Necrotic Tissue Type Adherent Slough -Structure Exposed Fascia Fat Layer Exposed -Texture (Bernice-wound Skin Appearance) Callus Scarring -Moisture (Bernice-wound Skin Appearance Dry/Scaly ) -Color (Bernice-wound Skin Appearance) No Abnormality -Temperature (Bernice-wound Skin No Abnormality Appearance) (Pt Warm) -Tenderness on Palpation (Bernice-wound No Skin Appearance) -Ulcer Cleansing Rinsed/ Irrigated with Saline -Foul Odor after Cleansing No -Anesthetic Used 5% Lidocaine Gel [Edema Assessment] -Lower Limb Edema Present No WC - Nurse 2 - General Ulcer CM Notes Start: 09/17/17 08:41 Freq: Status: Active Protocol: Activity Type Activity Date Activity User E-Sign Co-Sign Detail Recorded Client Recorded Date Recorded By Document 09/24/17 09:10 MW [id number] 09/24/17 09:18 MW 09/24/17 09:10 Wound Center Nurse 2 [Procedure/Treatment] #3 LEFT PLANTAR 1ST METATARSAL HEAD -Time 09:11 -Correct Patient Yes -Correct Side, Site, Position Yes -Correct Procedure Yes -Procedure Performed Yes -Type of Procedure Debridement -Clinical Debridement Subcutaneous -Post Debridement Size (cm) - Length 0.5 -Post Debridement Size (cm) - Width 0.6 -Post Debridement Size (cm) - Depth 0.2 -Total Square Cm 0.30 -Wound/Ulcer Outcome Not Healed -Ulcer Cleansing Rinsed/ Irrigated with Saline -Foul Odor after Cleansing No -Bioengineered Tissue No -Bleeding Controlled with Pressure -Treatment Response Procedure Tolerated Well [See Physician Procedure note for Specifics] Pain Scale: 0-10 Numeric [Pain] -Is Patient Pain Free? Yes Musculoskeletal: No Tenderness to Palpation of Joints or Extremities Neurological: - - Protective sensation absent to all pedal sites tested to the forefoot using a 5.07 [place] Brett monofilament Psych/Mental Status: Normal Affect, Appropriate Debridement Note Post-Debridement Measurements/Treatment WC - Nurse 2 - General Ulcer CM Notes Start: 09/17/17 08:41 Freq: Status: Active Protocol: Activity Type Activity Date Activity User E-Sign Co-Sign Detail Recorded Client Recorded Date Recorded By Document 09/17/17 09:00 MW [id number] 09/17/17 09:13 MW Document 09/24/17 09:10 MW [id number] 09/24/17 09:18 MW 09/17/17 09/24/17 09:00 09:10 Wound Center Nurse 2 #3 LEFT PLANTAR 1ST METATARSAL HEAD -Time 09:01 09:11 -Correct Patient Yes Yes -Correct Side, Site, Position Yes Yes -Correct Procedure Yes Yes -Procedure Performed Yes Yes -Type of Procedure Debridement Debridement -Clinical Debridement Subcutaneous Subcutaneous -Post Debridement Size (cm) - Length 0.8 0.5 -Post Debridement Size (cm) - Width 0.6 0.6 -Post Debridement Size (cm) - Depth 0.3 0.2 -Total Square Cm 0.48 0.30 -Wound/Ulcer Outcome Not Healed Not Healed -Ulcer Cleansing Rinsed/ Rinsed/ Irrigated with Irrigated with Saline Saline -Foul Odor after Cleansing No No -Bioengineered Tissue No No -Bleeding Controlled with Pressure Pressure -Treatment Response Procedure Procedure Tolerated Well Tolerated Well Pain Scale: 0-10 Numeric Is Patient Pain Free? Yes Yes Wound debrided: Left plantar medial distal forefoot Laterality: Left Type of Debridement: Excisional debridement Anesthesia Used: 4% Lidocaine Solution Depth: in the subcutaneous layer Percentage of wound debrided: 100 Instrument Used: #15 blade, - - Tissue nipper Tissue Removed: Adherent slough, fibrin, biofilm, hyperkeratotic tissue Severity: Fat Layer Exposed Amount of bleeding with debridement: Mild Bleeding Controlled with: Pressure Patient tolerated procedure well Assessment/Plan Assessment: Ulcer left foot with fat layer exposed. idiopathic neuropathy. obesity Plan: Patient was examined and evaluated again today. Ulcer site was subcutaneously debrided as noted in the clinical panel. Ulcer site appears to be slightly improved in both appearance and size again this week. Following debridement, the ulcer site was covered with a 1.5 x 1.5 affinity graft. This was the second affinity graft today. Following placement of affinity it was secured with steri strips, followed by wound veil and more steri strips, followed by a dry sterile dressing. The patient was instructed that he can change the top dressing if needed down to the level of the wound veil, but to not go past that level. Patient understands. Product rep and myself answered any questions the patient had. The importance of offloading his ulcer site was again stressed to this patient again today. I stressed the importance of keeping this area offloaded as much as possible, or any other wound care we do will not matter. Patient had a new accommodation made into his orthotics at [facility] to help further offload the area. Patient was instructed to eat a high protein diet to help accelerate ulcer healing. Patient was educated on all signs and symptoms of local and systemic infection and is instructed to go to the ER immediately should he notice any. All questions were answered to the patient's satisfaction. Patient will follow-up in clinic in 1 week. He was instructed to call the office at any time with any questions or concerns or go to the ER should he notice any signs or symptoms of infection before he returns to wound center. He understands this.
[2017-10-01 08:51] VITALS: BP 140/80; PULSE 63; RESP 18; TEMP 36.9
--- NOTE | 2017-10-01 10:15 | PCM.WC.PN ---
(1) Neuropathic ulcer of left foot with fat layer exposed Status: Acute Current Visit: No Code(s): L97.522 - Non-pressure chronic ulcer of other part of left foot with fat layer exposed (2) Delayed wound healing Status: Acute Current Visit: No Code(s): T14.8XXD - Other injury of unspecified body region, subsequent encounter (3) Malnutrition Status: Suspected Current Visit: No Code(s): E46 - Unspecified protein-calorie malnutrition (4) Obesity Status: Acute Current Visit: No Code(s): E66.9 - Obesity, unspecified (5) Idiopathic neuropathy Status: Acute Current Visit: No Code(s): G60.9 - Hereditary and idiopathic neuropathy, unspecified Type of Wound Date of Service: 10/01/17 Chief Complaint: ulcer of left great toe History of Wound: Patient presents to wound center today with a non healing ulcer to the distal plantar medial left foot. He says he thinks he had a callus and blister in the area that started the ulcer. He noticed it about a week and a half ago. He has had ulcers in the past, so for the last week and a half he has tried to dress the area with aquacel ag that he had left over from the past. He says he has not noticed it getting much worse, but he has not noticed an improvement. He denies any purulence or significant amount of drainage to the area. He saw Dr. Pillai on August 12 who cultured the ulcer site and started the patietn on 10 days of Ciprofloxacin one the sensitivity came back. Patient says he started taking the medication 2 days ago. 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 He had accommodative inserts made at [facility] close to a year ago, however, the area of the previous ulcre is not an offloaded area. Patient denies any feeling of nausea, vomiting, fever, chills, or shortness of breath. Progress of Wound: Patient presents to clinic today for follow up care. He has left his dressing intact since last visit as instructed. Patient has been wearing insert that was modified to accommodate the area of the ulcer at [employer]. Patient says he has not noticed any purulence or any other signs of infection. He will have his third affinity graft placed today. He denies any nausea, vomiting, fever, or chills today. - Physical Exam Vital Signs Temp Pulse Resp BP 98.4 F 63 18 140/80 H 10/01/17 08:51 10/01/17 08:51 10/01/17 08:51 10/01/17 08:51 General: Alert, Oriented x3, Cooperative, No apparent distress Extremities: Capillary Refill Less than 3 Seconds, No Calf Tenderness - hannah and byrne sign, Peripheral Pulses Normal - DP and PT pulses palpable Skin: Ulcer/ Wound - Ulcer to plantar distal left forefoot towards the distal end of the first metatarsal head. The ulcer base is a mixture of adherent slough, fibrin, biofilm, as well as granular tissue with a hyperkeratotic rim. There is no undermining appreciated today. There is no probing to bone and no tracking, no purulence, no malodor, no cellulitis, and no increased warmth or any other signs of local infection appreciated at this time. The ulcer continues to show improvement. Wound Measurements and Assessment WC - Nurse 1 - General Ulcer Measurement Start: 09/17/17 08:41 Freq: Status: Active Protocol: Activity Type Activity Date Activity User E-Sign Co-Sign Detail Recorded Client Recorded Date Recorded By Document 10/01/17 08:51 [id number] 10/01/17 08:53 TM 10/01/17 08:51 Wound Center Nurse 1 [Ulcer Assessment] #3 LEFT PLANTAR 1ST METATARSAL HEAD -Combined with other wound No -Current Size (cm) - Length 0.1 -Current Size (cm) - Width 0.1 -Current Size (cm) - Depth 0.1 -Total Square Cm 0.01 -Photo Taken No -Epithelialization Large 67-100% -Tunneling No -Undermining/Tunneling No -Circular Undermining No -Classification - Thickness Full Thickness without Exposed Support Structure -Exudate Amt Small (1-33%) -Exudate Type Serosanguineous -Wound Margin Distinct, Outline Attached -Granulation Amt Large (67-100%) -Granulation Quality [place] -Slough/Fibrin Yes -Necrosis Amt Small (1-33%) -Necrotic Tissue Type Adherent Slough -Structure Exposed Fascia Fat Layer Exposed -Texture (Bernice-wound Skin Appearance) Callus -Moisture (Bernice-wound Skin Appearance Dry/Scaly ) -Color (Bernice-wound Skin Appearance) No Abnormality -Temperature (Bernice-wound Skin No Abnormality Appearance) (Pt Warm) -Tenderness on Palpation (Bernice-wound No Skin Appearance) -Ulcer Cleansing Rinsed/ Irrigated with Saline -Foul Odor after Cleansing No -Anesthetic Used 5% Lidocaine Gel [Edema Assessment] -Lower Limb Edema Present Yes -Left Calf (cm) 42.0 -Left Ankle (cm) 26.0 - Nurse 2 - General Ulcer CM Notes Start: 09/17/17 08:41 Freq: Status: Active Protocol: Activity Type Activity Date Activity User E-Sign Co-Sign Detail Recorded Client Recorded Date Recorded By Document 10/01/17 09:32 MW [id number] 10/01/17 09:45 MW 10/01/17 09:32 Wound Center Nurse 2 [Procedure/Treatment] #3 LEFT PLANTAR 1ST METATARSAL HEAD -Time 09:32 -Correct Patient Yes -Correct Side, Site, Position Yes -Correct Procedure Yes -Procedure Performed Yes -Type of Procedure Debridement -Clinical Debridement Selective -Post Debridement Size (cm) - Length 0.2 -Post Debridement Size (cm) - Width 0.3 -Post Debridement Size (cm) - Depth 0.1 -Total Square Cm 0.06 -Wound/Ulcer Outcome Not Healed -Ulcer Cleansing Rinsed/ Irrigated with Saline -Foul Odor after Cleansing No -Bioengineered Tissue No -Bleeding Controlled with Pressure -Treatment Response Procedure Tolerated Well [See Physician Procedure note for Specifics] Pain Scale: 0-10 Numeric [Pain] -Is Patient Pain Free? Yes Musculoskeletal: No Tenderness to Palpation of Joints or Extremities Neurological: - - Protective sensation absent to all pedal sites tested to the forefoot using a 5.07 [place] Brett monofilament Psych/Mental Status: Normal Affect, Appropriate Debridement Note Post-Debridement Measurements/Treatment - Nurse 2 - General Ulcer CM Notes Start: 09/17/17 08:41 Freq: Status: Active Protocol: Activity Type Activity Date Activity User E-Sign Co-Sign Detail Recorded Client Recorded Date Recorded By Document 09/17/17 09:00 MW [id number] 09/17/17 09:13 MW Document 09/24/17 09:10 MW [id number] 09/24/17 09:18 MW Document 10/01/17 09:32 MW [id number] 10/01/17 09:45 MW 09/17/17 09/24/17 10/01/17 09:00 09:10 09:32 Wound Center Nurse 2 #3 LEFT PLANTAR 1ST METATARSAL HEAD -Time 09:01 09:11 09:32 -Correct Patient Yes Yes Yes -Correct Side, Site, Position Yes Yes Yes -Correct Procedure Yes Yes Yes -Procedure Performed Yes Yes Yes -Type of Procedure Debridement Debridement Debridement -Clinical Debridement Subcutaneous Subcutaneous Selective -Post Debridement Size (cm) - Length 0.8 0.5 0.2 -Post Debridement Size (cm) - Width 0.6 0.6 0.3 -Post Debridement Size (cm) - Depth 0.3 0.2 0.1 -Total Square Cm 0.48 0.30 0.06 -Wound/Ulcer Outcome Not Healed Not Healed Not Healed -Ulcer Cleansing Rinsed/ Rinsed/ Rinsed/ Irrigated with Irrigated with Irrigated with Saline Saline Saline -Foul Odor after Cleansing No No No -Bioengineered Tissue No No No -Bleeding Controlled with Pressure Pressure Pressure -Treatment Response Procedure Procedure Procedure Tolerated Well Tolerated Well Tolerated Well Pain Scale: 0-10 Numeric Is Patient Pain Free? Yes Yes Yes Wound debrided: Left plantar medial distal forefoot Laterality: Left Type of Debridement: Selective debridement Anesthesia Used: 4% Lidocaine Solution Depth: in the subcutaneous layer Percentage of wound debrided: 100 Instrument Used: #15 blade Tissue Removed: Inherent slough, fibrin, biofilm, hyperkeratotic tissue Severity: Fat Layer Exposed Amount of bleeding with debridement: Mild Bleeding Controlled with: Pressure Patient tolerated procedure well Assessment/Plan Assessment: Ulcer left foot with fat layer exposed. idiopathic neuropathy. obesity Plan: Patient was examined and evaluated again today. Ulcer site was selectively debrided as noted in the clinical panel. Ulcer site appears to be improved again in both appearance and size again this week. Following debridement, the ulcer site was covered with a 1.5 x 1.5 affinity graft. This was the third affinity graft today. Following placement of affinity it was secured with steri strips, followed by wound veil and more steri strips, followed by a dry sterile dressing. The patient was instructed that he can change the top dressing if needed down to the level of the wound veil, but to not go past that level. Patient understands. Product rep and myself answered any questions the patient had. The importance of offloading his ulcer site was again stressed to this patient again today. I stressed the importance of keeping this area offloaded as much as possible, or any other wound care we do will not matter. Patient had a new accommodation made into his orthotics at [facility] to help further offload the area. Patient was instructed to eat a high protein diet to help accelerate ulcer healing. Patient was educated on all signs and symptoms of local and systemic infection and is instructed to go to the ER immediately should he notice any. All questions were answered to the patient's satisfaction. Patient will follow-up in clinic in 1 week. He was instructed to call the office at any time with any questions or concerns or go to the ER should he notice any signs or symptoms of infection before he returns to wound center. He understands this.
--- NOTE | 2017-10-01 10:21 | PN.PCM_ITS ---
(1) Neuropathic ulcer of left foot with fat layer exposed Status: Acute Current Visit: No Code(s): L97.522 - Non-pressure chronic ulcer of other part of left foot with fat layer exposed (2) Delayed wound healing Status: Acute Current Visit: No Code(s): T14.8XXD - Other injury of unspecified body region, subsequent encounter (3) Malnutrition Status: Suspected Current Visit: No Code(s): E46 - Unspecified protein- calorie malnutrition (4) Obesity Status: Acute Current Visit: No Code(s): E66.9 - Obesity, unspecified (5) Idiopathic neuropathy Status: Acute Current Visit: No Code(s): G60.9 - Hereditary and idiopathic neuropathy, unspecified Type of Wound Date of Service: 10/01/17 Chief Complaint: ulcer of left great toe History of Wound: Patient presents to wound center today with a non healing ulcer to the distal plantar medial left foot. He says he thinks he had a callus and blister in the area that started the ulcer. He noticed it about a week and a half ago. He has had ulcers in the past, so for the last week and a half he has tried to dress the area with aquacel ag that he had left over from the past. He says he has not noticed it getting much worse, but he has not noticed an improvement. He denies any purulence or significant amount of drainage to the area. He saw Dr. Pillai on August 12 who cultured the ulcer site and started the patietn on 10 days of Ciprofloxacin one the sensitivity came back. Patient says he started taking the medication 2 days ago. 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 He had accommodative inserts made at [employer] close to a year ago, however, the area of the previous ulcre is not an offloaded area. Patient denies any feeling of nausea, vomiting, fever, chills, or shortness of breath. Progress of Wound: Patient presents to clinic today for follow up care. He has left his dressing intact since last visit as instructed. Patient has been wearing insert that was modified to accommodate the area of the ulcer at [employer]. Patient says he has not noticed any purulence or any other signs of infection. He will have his third affinity graft placed today. He denies any nausea, vomiting, fever, or chills today. - Physical Exam Vital Signs Temp Pulse Resp BP 98.4 F 63 18 140/80 H 10/01/17 08:51 10/01/17 08:51 10/01/17 08:51 10/01/17 08:51 General: Alert, Oriented x3, Cooperative, No apparent distress Extremities: Capillary Refill Less than 3 Seconds, No Calf Tenderness - hannah and byrne sign, Peripheral Pulses Normal - DP and PT pulses palpable Skin: Ulcer/ Wound - Ulcer to plantar distal left forefoot towards the distal end of the first metatarsal head. The ulcer base is a mixture of adherent slough, fibrin, biofilm, as well as granular tissue with a hyperkeratotic rim. There is no undermining appreciated today. There is no probing to bone and no tracking, no purulence, no malodor, no cellulitis, and no increased warmth or any other signs of local infection appreciated at this time. The ulcer continues to show improvement. Wound Measurements and Assessment WC - Nurse 1 - General Ulcer Measurement Start: 09/17/17 08:41 Freq: Status: Active Protocol: Activity Type Activity Date Activity User E-Sign Co-Sign Detail Recorded Client Recorded Date Recorded By Document 10/01/17 08:51 [id number] 10/01/17 08:53 TM 10/01/17 08:51 Wound Center Nurse 1 [Ulcer Assessment] #3 LEFT PLANTAR 1ST METATARSAL HEAD -Combined with other wound No -Current Size (cm) - Length 0.1 -Current Size (cm) - Width 0.1 -Current Size (cm) - Depth 0.1 -Total Square Cm 0.01 -Photo Taken No -Epithelialization Large 67-100% -Tunneling No -Undermining/Tunneling No -Circular Undermining No -Classification - Thickness Full Thickness without Exposed Support Structure -Exudate Amt Small (1-33%) -Exudate Type Serosanguineous -Wound Margin Distinct, Outline Attached -Granulation Amt Large (67-100%) -Granulation Quality [place] -Slough/Fibrin Yes -Necrosis Amt Small (1-33%) -Necrotic Tissue Type Adherent Slough -Structure Exposed Fascia Fat Layer Exposed -Texture (Bernice-wound Skin Appearance) Callus -Moisture (Bernice-wound Skin Appearance Dry/Scaly ) -Color (Bernice-wound Skin Appearance) No Abnormality -Temperature (Bernice-wound Skin No Abnormality Appearance) (Pt Warm) -Tenderness on Palpation (Bernice-wound No Skin Appearance) -Ulcer Cleansing Rinsed/ Irrigated with Saline -Foul Odor after Cleansing No -Anesthetic Used 5% Lidocaine Gel [Edema Assessment] -Lower Limb Edema Present Yes -Left Calf (cm) 42.0 -Left Ankle (cm) 26.0 - Nurse 2 - General Ulcer CM Notes Start: 09/17/17 08:41 Freq: Status: Active Protocol: Activity Type Activity Date Activity User E-Sign Co-Sign Detail Recorded Client Recorded Date Recorded By Document 10/01/17 09:32 MW [id number] 10/01/17 09:45 MW 10/01/17 09:32 Wound Center Nurse 2 [Procedure/Treatment] #3 LEFT PLANTAR 1ST METATARSAL HEAD -Time 09:32 -Correct Patient Yes -Correct Side, Site, Position Yes -Correct Procedure Yes -Procedure Performed Yes -Type of Procedure Debridement -Clinical Debridement Selective -Post Debridement Size (cm) - Length 0.2 -Post Debridement Size (cm) - Width 0.3 -Post Debridement Size (cm) - Depth 0.1 -Total Square Cm 0.06 -Wound/Ulcer Outcome Not Healed -Ulcer Cleansing Rinsed/ Irrigated with Saline -Foul Odor after Cleansing No -Bioengineered Tissue No -Bleeding Controlled with Pressure -Treatment Response Procedure Tolerated Well [See Physician Procedure note for Specifics] Pain Scale: 0-10 Numeric [Pain] -Is Patient Pain Free? Yes Musculoskeletal: No Tenderness to Palpation of Joints or Extremities Neurological: - - Protective sensation absent to all pedal sites tested to the forefoot using a 5.07 [place] Brett monofilament Psych/Mental Status: Normal Affect, Appropriate Debridement Note Post-Debridement Measurements/Treatment - Nurse 2 - General Ulcer CM Notes Start: 09/17/17 08:41 Freq: Status: Active Protocol: Activity Type Activity Date Activity User E-Sign Co-Sign Detail Recorded Client Recorded Date Recorded By Document 09/17/17 09:00 MW [id number] 09/17/17 09:13 MW Document 09/24/17 09:10 MW [id number] 09/24/17 09:18 MW Document 10/01/17 09:32 MW [id number] 10/01/17 09:45 MW 09/17/17 09/24/17 10/01/17 09:00 09:10 09:32 Wound Center Nurse 2 #3 LEFT PLANTAR 1ST METATARSAL HEAD -Time 09:01 09:11 09:32 -Correct Patient Yes Yes Yes -Correct Side, Site, Position Yes Yes Yes -Correct Procedure Yes Yes Yes -Procedure Performed Yes Yes Yes -Type of Procedure Debridement Debridement Debridement -Clinical Debridement Subcutaneous Subcutaneous Selective -Post Debridement Size (cm) - Length 0.8 0.5 0.2 -Post Debridement Size (cm) - Width 0.6 0.6 0.3 -Post Debridement Size (cm) - Depth 0.3 0.2 0.1 -Total Square Cm 0.48 0.30 0.06 -Wound/Ulcer Outcome Not Healed Not Healed Not Healed -Ulcer Cleansing Rinsed/ Rinsed/ Rinsed/ Irrigated with Irrigated with Irrigated with Saline Saline Saline -Foul Odor after Cleansing No No No -Bioengineered Tissue No No No -Bleeding Controlled with Pressure Pressure Pressure -Treatment Response Procedure Procedure Procedure Tolerated Well Tolerated Well Tolerated Well Pain Scale: 0-10 Numeric Is Patient Pain Free? Yes Yes Yes Wound debrided: Left plantar medial distal forefoot Laterality: Left Type of Debridement: Selective debridement Anesthesia Used: 4% Lidocaine Solution Depth: in the subcutaneous layer Percentage of wound debrided: 100 Instrument Used: #15 blade Tissue Removed: Inherent slough, fibrin, biofilm, hyperkeratotic tissue Severity: Fat Layer Exposed Amount of bleeding with debridement: Mild Bleeding Controlled with: Pressure Patient tolerated procedure well Assessment/Plan Assessment: Ulcer left foot with fat layer exposed. idiopathic neuropathy. obesity Plan: Patient was examined and evaluated again today. Ulcer site was selectively debrided as noted in the clinical panel. Ulcer site appears to be improved again in both appearance and size again this week. Following debridement, the ulcer site was covered with a 1.5 x 1.5 affinity graft. This was the third affinity graft today. Following placement of affinity it was secured with steri strips, followed by wound veil and more steri strips, followed by a dry sterile dressing. The patient was instructed that he can change the top dressing if needed down to the level of the wound veil, but to not go past that level. Patient understands. Product rep and myself answered any questions the patient had. The importance of offloading his ulcer site was again stressed to this patient again today. I stressed the importance of keeping this area offloaded as much as possible, or any other wound care we do will not matter. Patient had a new accommodation made into his orthotics at [facility] to help further offload the area. Patient was instructed to eat a high protein diet to help accelerate ulcer healing. Patient was educated on all signs and symptoms of local and systemic infection and is instructed to go to the ER immediately should he notice any. All questions were answered to the patient's satisfaction. Patient will follow-up in clinic in 1 week. He was instructed to call the office at any time with any questions or concerns or go to the ER should he notice any signs or symptoms of infection before he returns to wound center. He understands this.
== END 2017-10-05 23:59 ==
LOC: WC 08:15
PROVIDERS: Family Provider Family Medicine; PCP Family Medicine; Visit Provider Podiatrist
DX: L97.522 Non-pressure chronic ulcer of other part of left foot with fat layer exposed (principal); G60.9 Hereditary and idiopathic neuropathy, unspecified; E66.9 Obesity, unspecified; Z68.35 Body mass index [BMI] 35.0-35.9, adult; Z71.3 Dietary counseling and surveillance
CPT/HCPCS: 11042; 97597

== ENCOUNTER 2017-10-08 08:12 | Outpatient (RCR) | payer OTHER, SELFPAY ==
[2017-10-06 00:57] VITALS: PULSE 63; RESP 18; TEMP 36.9
[2017-10-08 08:53] VITALS: BP 136/89; PULSE 68; RESP 18; TEMP 36.6
--- NOTE | 2017-10-08 09:37 | PCM.WC.PN ---
(1) Neuropathic ulcer of left foot with fat layer exposed Status: Acute Current Visit: No Code(s): L97.522 - Non-pressure chronic ulcer of other part of left foot with fat layer exposed (2) Delayed wound healing Status: Acute Current Visit: No Code(s): T14.8XXD - Other injury of unspecified body region, subsequent encounter (3) Malnutrition Status: Suspected Current Visit: No Code(s): E46 - Unspecified protein-calorie malnutrition (4) Obesity Status: Acute Current Visit: No Code(s): E66.9 - Obesity, unspecified (5) Idiopathic neuropathy Status: Acute Current Visit: No Code(s): G60.9 - Hereditary and idiopathic neuropathy, unspecified Type of Wound Date of Service: 10/08/17 Chief Complaint: ulcer of left great toe History of Wound: Patient presents to wound center today with a non healing ulcer to the distal plantar medial left foot. He says he thinks he had a callus and blister in the area that started the ulcer. He noticed it about a week and a half ago. He has had ulcers in the past, so for the last week and a half he has tried to dress the area with aquacel ag that he had left over from the past. He says he has not noticed it getting much worse, but he has not noticed an improvement. He denies any purulence or significant amount of drainage to the area. He saw Dr. Pillai on August 12 who cultured the ulcer site and started the patietn on 10 days of Ciprofloxacin one the sensitivity came back. Patient says he started taking the medication 2 days ago. 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 He had accommodative inserts made at [employer] close to a year ago, however, the area of the previous ulcre is not an offloaded area. Patient denies any feeling of nausea, vomiting, fever, chills, or shortness of breath. Progress of Wound: Patient presents to clinic today for follow up care. He has left his dressing intact since last visit as instructed. Patient has been wearing insert that was modified to accommodate the area of the ulcer at [place]. Patient says he has not noticed any purulence or any other signs of infection. Patient feels his ulcer might be healed. He denies any nausea, vomiting, fever, or chills today. - Physical Exam Vital Signs Temp Pulse Resp BP 97.8 F 68 18 136/89 H 10/08/17 08:53 10/08/17 08:53 10/08/17 08:53 10/08/17 08:53 General: Alert, Oriented x3, Cooperative, No apparent distress Extremities: Capillary Refill Less than 3 Seconds, No Calf Tenderness - negative hannah and byrne sign, Peripheral Pulses Normal - DP and PT pulses palpable Skin: Ulcer/ Wound - Ulcer to plantar distal left forefoot towards the distal end of the first metatarsal head appears healed today. There is no surrounding cellulitis no malodor no other signs of local infection appreciated at this time. Slight amount of hyperkeratotic tissue overlying the previous ulcer site. Wound Measurements and Assessment WC - Nurse 1 - General Ulcer Measurement Start: 10/08/17 08:53 Freq: Status: Active Protocol: Activity Type Activity Date Activity User E-Sign Co-Sign Detail Recorded Client Recorded Date Recorded By Document 10/08/17 08:53 [id number] 10/08/17 08:55 10/08/17 08:53 Wound Center Nurse 1 [Ulcer Assessment] #3 LEFT PLANTAR 1ST METATARSAL HEAD -Combined with other wound No -Current Size (cm) - Length 0.1 -Current Size (cm) - Width 0.1 -Current Size (cm) - Depth 0.1 -Total Square Cm 0.01 -Date of Last Picture (Recall this 10/08/17 field) -Photo Taken Yes -Epithelialization Large 67-100% -Tunneling No -Undermining/Tunneling No -Circular Undermining No -Classification - Thickness Full Thickness without Exposed Support Structure -Exudate Amt None Present (0 %) -Wound Margin Distinct, Outline Attached -Granulation Amt Large (67-100%) -Granulation Quality [place] -Slough/Fibrin No -Necrosis Amt None Present (0 %) -Structure Exposed None/Limited to Skin Breakdown -Texture (Bernice-wound Skin Appearance) Callus -Moisture (Bernice-wound Skin Appearance Dry/Scaly ) -Color (Bernice-wound Skin Appearance) No Abnormality -Temperature (Bernice-wound Skin No Abnormality Appearance) (Pt Warm) -Tenderness on Palpation (Bernice-wound No Skin Appearance) -Ulcer Cleansing Rinsed/ Irrigated with Saline -Foul Odor after Cleansing No -Anesthetic Used 5% Lidocaine Gel [Edema Assessment] -Lower Limb Edema Present Yes -Left Calf (cm) 44.5 -Left Ankle (cm) 27.0 - Nurse 2 - General Ulcer CM Notes Start: 10/08/17 08:53 Freq: Status: Active Protocol: Activity Type Activity Date Activity User E-Sign Co-Sign Detail Recorded Client Recorded Date Recorded By Document 10/08/17 09:14 MW [id number] 10/08/17 09:16 MW 10/08/17 09:14 Wound Center Nurse 2 [Procedure/Treatment] #3 LEFT PLANTAR 1ST METATARSAL HEAD -Time 09:15 -Correct Patient Yes -Correct Side, Site, Position Yes -Correct Procedure Yes -Procedure Performed No -Post Debridement Size (cm) - Length 0 -Post Debridement Size (cm) - Width 0 -Post Debridement Size (cm) - Depth 0 -Total Square Cm 0 -Wound/Ulcer Outcome Healed- Epithelialized -Ulcer Cleansing Rinsed/ Irrigated with Saline -Foul Odor after Cleansing No -Bioengineered Tissue No -Bleeding Controlled with Pressure -Treatment Response Procedure Tolerated Well [See Physician Procedure note for Specifics] Pain Scale: 0-10 Numeric [Pain] -Is Patient Pain Free? Yes Musculoskeletal: No Tenderness to Palpation of Joints or Extremities Neurological: - - Protective sensation absent to all pedal sites tested to the forefoot using a 5.07 [place] Brett monofilament Psych/Mental Status: Normal Affect, Appropriate Debridement Note Post-Debridement Measurements/Treatment - Nurse 2 - General Ulcer CM Notes Start: 10/08/17 08:53 Freq: Status: Active Protocol: Activity Type Activity Date Activity User E-Sign Co-Sign Detail Recorded Client Recorded Date Recorded By Document 10/08/17 09:14 MW [id number] 10/08/17 09:16 MW 10/08/17 09:14 Wound Center Nurse 2 #3 LEFT PLANTAR 1ST METATARSAL HEAD -Time 09:15 -Correct Patient Yes -Correct Side, Site, Position Yes -Correct Procedure Yes -Procedure Performed No -Post Debridement Size (cm) - Length 0 -Post Debridement Size (cm) - Width 0 -Post Debridement Size (cm) - Depth 0 -Total Square Cm 0 -Wound/Ulcer Outcome Healed- Epithelialized -Ulcer Cleansing Rinsed/ Irrigated with Saline -Foul Odor after Cleansing No -Bioengineered Tissue No -Bleeding Controlled with Pressure -Treatment Response Procedure Tolerated Well Pain Scale: 0-10 Numeric Is Patient Pain Free? Yes No debridement was completed today Assessment/Plan Assessment: Ulcer left foot with fat layer exposed. idiopathic neuropathy. obesity Plan: Patient was examined and evaluated again today. Ulcer site is healed today after minor debridement of overlying hyperkeratotic tissue. The importance of continuing to offload his ulcer site was again stressed to this patient again today, even though the area is healed. I stressed the importance of keeping this area offloaded as much as possible. Patient had a new accommodation made into his orthotics at [facility] to help further offload the area. Patient was instructed to eat a high protein diet to help accelerate ulcer healing. Patient was educated on all signs and symptoms of local and systemic infection and is instructed to go to the ER immediately should he notice any. The patient will be discharged at this time. All questions were answered to the patient's satisfaction. Patient will follow-up in clinic on an as needed basis. He was instructed to call the office at any time with any questions or concerns or go to the ER should he notice any signs or symptoms of infection. He understands this.
--- NOTE | 2017-10-08 09:45 | PN.PCM_ITS ---
(1) Neuropathic ulcer of left foot with fat layer exposed Status: Acute Current Visit: No Code(s): L97.522 - Non-pressure chronic ulcer of other part of left foot with fat layer exposed (2) Delayed wound healing Status: Acute Current Visit: No Code(s): T14.8XXD - Other injury of unspecified body region, subsequent encounter (3) Malnutrition Status: Suspected Current Visit: No Code(s): E46 - Unspecified protein- calorie malnutrition (4) Obesity Status: Acute Current Visit: No Code(s): E66.9 - Obesity, unspecified (5) Idiopathic neuropathy Status: Acute Current Visit: No Code(s): G60.9 - Hereditary and idiopathic neuropathy, unspecified Type of Wound Date of Service: 10/08/17 Chief Complaint: ulcer of left great toe History of Wound: Patient presents to wound center today with a non healing ulcer to the distal plantar medial left foot. He says he thinks he had a callus and blister in the area that started the ulcer. He noticed it about a week and a half ago. He has had ulcers in the past, so for the last week and a half he has tried to dress the area with aquacel ag that he had left over from the past. He says he has not noticed it getting much worse, but he has not noticed an improvement. He denies any purulence or significant amount of drainage to the area. He saw Dr. Pillai on August 12 who cultured the ulcer site and started the patietn on 10 days of Ciprofloxacin one the sensitivity came back. Patient says he started taking the medication 2 days ago. 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 He had accommodative inserts made at [place] close to a year ago, however, the area of the previous ulcre is not an offloaded area. Patient denies any feeling of nausea, vomiting, fever, chills, or shortness of breath. Progress of Wound: Patient presents to clinic today for follow up care. He has left his dressing intact since last visit as instructed. Patient has been wearing insert that was modified to accommodate the area of the ulcer at [place]. Patient says he has not noticed any purulence or any other signs of infection. Patient feels his ulcer might be healed. He denies any nausea, vomiting, fever, or chills today. - Physical Exam Vital Signs Temp Pulse Resp BP 97.8 F 68 18 136/89 H 10/08/17 08:53 10/08/17 08:53 10/08/17 08:53 10/08/17 08:53 General: Alert, Oriented x3, Cooperative, No apparent distress Extremities: Capillary Refill Less than 3 Seconds, No Calf Tenderness - negative hannah and byrne sign, Peripheral Pulses Normal - DP and PT pulses palpable Skin: Ulcer/ Wound - Ulcer to plantar distal left forefoot towards the distal end of the first metatarsal head appears healed today. There is no surrounding cellulitis no malodor no other signs of local infection appreciated at this time. Slight amount of hyperkeratotic tissue overlying the previous ulcer site. Wound Measurements and Assessment WC - Nurse 1 - General Ulcer Measurement Start: 10/08/17 08:53 Freq: Status: Active Protocol: Activity Type Activity Date Activity User E-Sign Co-Sign Detail Recorded Client Recorded Date Recorded By Document 10/08/17 08:53 [id number] 10/08/17 08:55 10/08/17 08:53 Wound Center Nurse 1 [Ulcer Assessment] #3 LEFT PLANTAR 1ST METATARSAL HEAD -Combined with other wound No -Current Size (cm) - Length 0.1 -Current Size (cm) - Width 0.1 -Current Size (cm) - Depth 0.1 -Total Square Cm 0.01 -Date of Last Picture (Recall this 10/08/17 field) -Photo Taken Yes -Epithelialization Large 67-100% -Tunneling No -Undermining/Tunneling No -Circular Undermining No -Classification - Thickness Full Thickness without Exposed Support Structure -Exudate Amt None Present (0 %) -Wound Margin Distinct, Outline Attached -Granulation Amt Large (67-100%) -Granulation Quality [place] -Slough/Fibrin No -Necrosis Amt None Present (0 %) -Structure Exposed None/Limited to Skin Breakdown -Texture (Bernice-wound Skin Appearance) Callus -Moisture (Bernice-wound Skin Appearance Dry/Scaly ) -Color (Bernice-wound Skin Appearance) No Abnormality -Temperature (Bernice-wound Skin No Abnormality Appearance) (Pt Warm) -Tenderness on Palpation (Bernice-wound No Skin Appearance) -Ulcer Cleansing Rinsed/ Irrigated with Saline -Foul Odor after Cleansing No -Anesthetic Used 5% Lidocaine Gel [Edema Assessment] -Lower Limb Edema Present Yes -Left Calf (cm) 44.5 -Left Ankle (cm) 27.0 - Nurse 2 - General Ulcer CM Notes Start: 10/08/17 08:53 Freq: Status: Active Protocol: Activity Type Activity Date Activity User E-Sign Co-Sign Detail Recorded Client Recorded Date Recorded By Document 10/08/17 09:14 MW [id number] 10/08/17 09:16 MW 10/08/17 09:14 Wound Center Nurse 2 [Procedure/Treatment] #3 LEFT PLANTAR 1ST METATARSAL HEAD -Time 09:15 -Correct Patient Yes -Correct Side, Site, Position Yes -Correct Procedure Yes -Procedure Performed No -Post Debridement Size (cm) - Length 0 -Post Debridement Size (cm) - Width 0 -Post Debridement Size (cm) - Depth 0 -Total Square Cm 0 -Wound/Ulcer Outcome Healed- Epithelialized -Ulcer Cleansing Rinsed/ Irrigated with Saline -Foul Odor after Cleansing No -Bioengineered Tissue No -Bleeding Controlled with Pressure -Treatment Response Procedure Tolerated Well [See Physician Procedure note for Specifics] Pain Scale: 0-10 Numeric [Pain] -Is Patient Pain Free? Yes Musculoskeletal: No Tenderness to Palpation of Joints or Extremities Neurological: - - Protective sensation absent to all pedal sites tested to the forefoot using a 5.07 Jber Brett monofilament Psych/Mental Status: Normal Affect, Appropriate Debridement Note Post-Debridement Measurements/Treatment - Nurse 2 - General Ulcer CM Notes Start: 10/08/17 08:53 Freq: Status: Active Protocol: Activity Type Activity Date Activity User E-Sign Co-Sign Detail Recorded Client Recorded Date Recorded By Document 10/08/17 09:14 MW [id number] 10/08/17 09:16 MW 10/08/17 09:14 Wound Center Nurse 2 #3 LEFT PLANTAR 1ST METATARSAL HEAD -Time 09:15 -Correct Patient Yes -Correct Side, Site, Position Yes -Correct Procedure Yes -Procedure Performed No -Post Debridement Size (cm) - Length 0 -Post Debridement Size (cm) - Width 0 -Post Debridement Size (cm) - Depth 0 -Total Square Cm 0 -Wound/Ulcer Outcome Healed- Epithelialized -Ulcer Cleansing Rinsed/ Irrigated with Saline -Foul Odor after Cleansing No -Bioengineered Tissue No -Bleeding Controlled with Pressure -Treatment Response Procedure Tolerated Well Pain Scale: 0-10 Numeric Is Patient Pain Free? Yes No debridement was completed today Assessment/Plan Assessment: Ulcer left foot with fat layer exposed. idiopathic neuropathy. obesity Plan: Patient was examined and evaluated again today. Ulcer site is healed today after minor debridement of overlying hyperkeratotic tissue. The importance of continuing to offload his ulcer site was again stressed to this patient again today, even though the area is healed. I stressed the importance of keeping this area offloaded as much as possible. Patient had a new accommodation made into his orthotics at [facility] to help further offload the area. Patient was instructed to eat a high protein diet to help accelerate ulcer healing. Patient was educated on all signs and symptoms of local and systemic infection and is instructed to go to the ER immediately should he notice any. The patient will be discharged at this time. All questions were answered to the patient's satisfaction. Patient will follow-up in clinic on an as needed basis. He was instructed to call the office at any time with any questions or concerns or go to the ER should he notice any signs or symptoms of infection. He understands this.
== END 2017-11-05 23:59 ==
LOC: WC 08:12
PROVIDERS: Family Provider Family Medicine; PCP Family Medicine; Visit Provider Podiatrist
DX: L97.522 Non-pressure chronic ulcer of other part of left foot with fat layer exposed (principal); T14.8XXD Other injury of unspecified body region, subsequent encounter; E46 Unspecified protein-calorie malnutrition; E66.9 Obesity, unspecified; G60.9 Hereditary and idiopathic neuropathy, unspecified
CPT/HCPCS: 99212; G0463

== ENCOUNTER 2018-12-03 10:11 | Outpatient (RCR) | payer BC, SELFPAY ==
[2018-12-03 11:05] VITALS: BP 145/73; PULSE 85; RESP 18; TEMP 36.9; BMI 36.5
--- NOTE | 2018-12-03 12:41 | HP.PCM_ITS ---
(1) Non-pressure chronic ulcer of other part of left foot with fat layer exposed Status: Acute Current Visit: Yes Code(s): L97.522 - Non-pressure chronic ulcer of other part of left foot with fat layer exposed (2) Delayed wound healing Status: Acute Current Visit: Yes Code(s): T14.8XXD - Other injury of unspecified body region, subsequent encounter (3) Essential hypertension Status: Acute Current Visit: Yes Code(s): I10 - Essential (primary) hypertension (4) Idiopathic neuropathy Status: Chronic Current Visit: Yes Code(s): G60.9 - Hereditary and idiopathic neuropathy, unspecified (5) Idiopathic peripheral neuropathy Status: Chronic Current Visit: Yes Code(s): G60.9 - Hereditary and idiopathic neuropathy, unspecified (6) Infected ulcer of skin Status: Acute Current Visit: Yes Code(s): L98.499 - Non-pressure chronic ulcer of skin of other sites with unspecified severity; L08.9 - Local infection of the skin and subcutaneous tissue, unspecified (7) Neuropathic ulcer of left foot with fat layer exposed Status: Acute Current Visit: Yes Code(s): L97.522 - Non-pressure chronic ulcer of other part of left foot with fat layer exposed History of Present Illness Date of Service: 12/03/18 Chief Complaint: Traumatic wound left plantar foot History of Wound: 63-year-old white male about 1 month ago was taking a tarp down at his daughter's house and 1 of the [place] got into his shoe and he was walking on it. With his peripheral neuropathy he did not realize that he had gone through his shoe and into his foot. When he removed his sock that night he realized it was blood and a wound just a puncture wound at that time. Saw his family doctor a month later without treatments and he sent him to the wound center. At this time the wound smells its open its elongated and deep still no pus discharge. Past Medical History Past Medical History: Chronic Problems Idiopathic neuropathy (Chronic) Idiopathic peripheral neuropathy (Chronic) Past Medical History: Open wound left plantar foot traumatic. Infected wound Allergies/Adverse Reactions: Allergies Penicillins [PCN] Adverse Reaction (Verified 07/02/16 08:49) Unknown Home Medications: Ambulatory Orders Medication Instructions Recorded Aspirin [Aspirin, Baby] 81 mg PO DAILY@0800 06/15/13 Atenolol [] 100 mg PO DAILY 06/22/13 Garlic 1,000 mg PO DAILY 06/22/13 Smoking Status: Never smoker Review of Systems Constitutional: Reports: Chills. Denies: Fever Eyes: Denies: Blurred vision, Drainage, Pain HEENT: Denies: Difficulty Hearing, Difficulty Swallowing, Sore Throat, Visual Changes Cardiovascular: Denies: Chest Pain, Palpitations, Syncope Respiratory: Denies: Cough, Shortness of Breath Gastrointestinal: Denies: Abdominal Pain, Nausea, Vomiting Genitourinary: Denies: Dysuria, Frequency Musculoskeletal: Denies: Joint Pain, Muscle pain Skin: Reports: Wounds. Denies: Jaundice, Rash Neurological: Denies: Balance problems, Change in Speech, Difficulty swallowing, Focal weakness Psychiatric: Denies: Anxiety, Depression Endocrine: Denies: Change in Body Habitus Hematologic/ Lymphatic: Denies: Adenopathy - Physical Exam Vital Signs Temp Pulse Resp BP 98.4 F 85 18 145/73 H 12/03/18 11:05 12/03/18 11:05 12/03/18 11:05 12/03/18 11:05 General: Oriented x3, Cooperative, Well developed HEENT: Atraumatic, PERRLA Oral: Moist Mucosa Neck: Supple, No JVD Lungs: Clear to auscultation, Normal air movement Cardiovascular: Regular rate, Regular Rhythm Abdomen: Bowel Sounds Present, Soft, Non Tender, No Hepato-splenomegaly Extremities: No clubbing, No edema Skin: Ulcer/ Wound - Elongated deep traumatic wound to the left plantar foot with odor Wound Measurements and Assessment WC - Nurse 1 - General Ulcer Measurement Start: 12/03/18 11:05 Freq: Status: Active Protocol: Activity Type Activity Date Activity User E-Sign Co-Sign Detail Recorded Client Recorded Date Recorded By Document 12/03/18 11:05 AN [id number] 12/03/18 11:40 AN 12/03/18 11:05 Wound Center Nurse 1 [Ulcer Assessment] #4 -Current Size (cm) - Length 2.0 -Current Size (cm) - Width 0.5 -Current Size (cm) - Depth 0.8 -Total Square Cm 1.00 -Date of Last Picture (Recall this 12/03/18 field) -Photo Taken Yes -Epithelialization None Present -Tunneling No -Undermining/Tunneling Yes -Undermining/Tunneling Starts (O' 6 clock) -Undermining/Tunneling Ends (O'clock) 7 -Maximum Distance (cm) 0.3 -Circular Undermining No -Classification - Thickness Full Thickness without Exposed Support Structure -Exudate Amt Medium -Exudate Type Serosanguineous -Wound Margin Thickened -Granulation Amt Large (67-100%) -Granulation Quality Red -Slough/Fibrin Yes -Necrosis Amt Small (1-33%) -Necrotic Tissue Type Eschar -Structure Exposed None/Limited to Skin Breakdown -Texture (Bernice-wound Skin Appearance) Assessed,Callus -Moisture (Bernice-wound Skin Appearance Assessed ) -Color (Bernice-wound Skin Appearance) Assessed -Temperature (Bernice-wound Skin No Abnormality Appearance) (Pt Warm) -Tenderness on Palpation (Bernice-wound No Skin Appearance) -Ulcer Cleansing Rinsed/ Irrigated with Saline -Foul Odor after Cleansing No -Anesthetic Used 5% Lidocaine Gel [Edema Assessment] -Right Calf (cm) 43.2 -Right Ankle (cm) 24.7 -Left Calf (cm) 43.2 -Left Ankle (cm) 24.7 WC - Nurse 2 - General Ulcer CM Notes Start: 12/03/18 11:05 Freq: Status: Active Protocol: Activity Type Activity Date Activity User E-Sign Co-Sign Detail Recorded Client Recorded Date Recorded By Document 12/03/18 11:53 MW [id number] 12/03/18 12:01 MW 12/03/18 11:53 Wound Center Nurse 2 [Procedure/Treatment] #4 -Time 11:53 -Correct Patient Yes -Correct Side, Site, Position Yes -Correct Procedure Yes -Procedure Performed Yes -Type of Procedure Debridement -Clinical Debridement Subcutaneous -Post Debridement Size (cm) - Length 2.0 -Post Debridement Size (cm) - Width 0.6 -Post Debridement Size (cm) - Depth 0.7 -Total Square Cm 1.20 -Wound/Ulcer Outcome Not Healed -Ulcer Cleansing Rinsed/ Irrigated with Saline -Foul Odor after Cleansing No -Bioengineered Tissue No -Bleeding Controlled with Pressure -Offloading No -Treatment Response Procedure Tolerated Well [See Physician Procedure note for Specifics] Pain Scale: 0-10 Numeric [Pain] -Is Patient Pain Free? Yes Musculoskeletal: No Tenderness to Palpation of Joints or Extremities Lymphatic: No Cervical, Supraclavicular, or Inguinal Adenopathy Neurological: Cranial nerves II-XII grossly intact, Neuro grossly intact Psych/Mental Status: Normal Affect, Appropriate Debridement Note Post-Debridement Measurements/Treatment WC - Nurse 2 - General Ulcer CM Notes Start: 12/03/18 11:05 Freq: Status: Active Protocol: Activity Type Activity Date Activity User E-Sign Co-Sign Detail Recorded Client Recorded Date Recorded By Document 12/03/18 11:53 MW [id number] 12/03/18 12:01 MW 12/03/18 11:53 Wound Center Nurse 2 #4 -Time 11:53 -Correct Patient Yes -Correct Side, Site, Position Yes -Correct Procedure Yes -Procedure Performed Yes -Type of Procedure Debridement -Clinical Debridement Subcutaneous -Post Debridement Size (cm) - Length 2.0 -Post Debridement Size (cm) - Width 0.6 -Post Debridement Size (cm) - Depth 0.7 -Total Square Cm 1.20 -Wound/Ulcer Outcome Not Healed -Ulcer Cleansing Rinsed/ Irrigated with Saline -Foul Odor after Cleansing No -Bioengineered Tissue No -Bleeding Controlled with Pressure -Offloading No -Treatment Response Procedure Tolerated Well Pain Scale: 0-10 Numeric Is Patient Pain Free? Yes Wound debrided: Left plantar foot Type of Debridement: Excisional debridement Anesthesia Used: 5% Lidocaine Gel Depth: Down to and including healthy tissue, in the subcutaneous layer Percentage of wound debrided: 100 Instrument Used: 7mm curette Tissue Removed: Callus and devitalized tissue and fibrin Severity: Fat Layer Exposed Amount of bleeding with debridement: Moderate Bleeding Controlled with: Compression and gauze Patient tolerated procedure well Assessment/Plan Cultures of the area anaerobic and aerobic obtained Active Problems Neuropathic ulcer of left foot with fat layer exposed (Acute) Delayed wound healing (Acute) Idiopathic neuropathy (Chronic) Non-pressure chronic ulcer of other part of left foot with fat layer exposed (Acute) Infected ulcer of skin (Acute) Idiopathic peripheral neuropathy (Chronic) Essential hypertension (Acute) Assessment: Ulcer left foot with fat layer exposed. idiopathic neuropathy. obesity. Nonpressure traumatic open wound infected to left plantar foot Plan: Wash left foot and leg with Hibiclens or antibacterial soap. Pack wound with Promogran gauze and dressing. Follow-up in 1 week. Start Bactroban DS 1 p.o. twice daily for 14 days until we get the results of the cultures.
== END 2018-12-05 23:59 ==
LOC: WC 10:11
PROVIDERS: Family Provider Nurse Practitioner Primary Care; PCP Nurse Practitioner Primary Care; Referring Provider Nurse Practitioner; Visit Provider Nurse Practitioner
DX: L97.522 Non-pressure chronic ulcer of other part of left foot with fat layer exposed (principal); I10 Essential (primary) hypertension; G60.9 Hereditary and idiopathic neuropathy, unspecified; E66.9 Obesity, unspecified; Z68.36 Body mass index [BMI] 36.0-36.9, adult; Z71.3 Dietary counseling and surveillance
CPT/HCPCS: 11042; 87070; 87075; 87077; 87186; 87205; 99213; G0463

== ENCOUNTER 2018-12-30 16:30 | Outpatient (RCR) | payer BC, SELFPAY ==
[2018-12-06 01:10] VITALS: BP 145/73; PULSE 85; RESP 18; TEMP 36.9
[2018-12-10 08:35] VITALS: BP 123/62; PULSE 67; RESP 18; TEMP 36.1; BMI 36.5
--- NOTE | 2018-12-10 09:03 | PN.PCM_ITS ---
(1) Delayed wound healing Status: Acute Current Visit: Yes Code(s): T14.8XXD - Other injury of unspecified body region, subsequent encounter (2) Essential hypertension Status: Chronic Current Visit: Yes Code(s): I10 - Essential (primary) hypertension (3) Infected ulcer of skin Status: Acute Current Visit: Yes Code(s): L98.499 - Non-pressure chronic ulcer of skin of other sites with unspecified severity; L08.9 - Local infection of the skin and subcutaneous tissue, unspecified (4) Neuropathic ulcer of left foot with fat layer exposed Status: Acute Current Visit: Yes Code(s): L97.522 - Non-pressure chronic ulcer of other part of left foot with fat layer exposed (5) Non-pressure chronic ulcer of other part of left foot with fat layer exposed Status: Acute Current Visit: Yes Code(s): L97.522 - Non-pressure chronic ulcer of other part of left foot with fat layer exposed Type of Wound Date of Service: 12/10/18 Chief Complaint: Traumatic wound left plantar foot History of Wound: 63-year-old white male about 1 month ago was taking a tarp down at his daughter's house and 1 of the [place] got into his shoe and he was walking on it. With his peripheral neuropathy he did not realize that he had gone through his shoe and into his foot. When he removed his sock that night he realized it was blood and a wound just a puncture wound at that time. Saw his family doctor a month later without treatments and he sent him to the wound center. At this time the wound smells its open its elongated and deep still no pus discharge. Progress of Wound: The wound does not smell as bad as it did last week. Still waiting on anaerobes all bacteria was rare on his cultures. Still taking sulfa and will start him on metronidazole. The ulcer itself is slightly smaller no redness or swelling no pus or discharge noted. Develops a lot of callus around the opening because of the way he walks on it. - Physical Exam Vital Signs Temp Pulse Resp BP 97 F L 67 18 123/62 H 12/10/18 08:35 12/10/18 08:35 12/10/18 08:35 12/10/18 08:35 General: Oriented x3, Cooperative, Well developed HEENT: Atraumatic, PERRLA Oral: Moist Mucosa Neck: Supple, No JVD Lungs: Clear to auscultation, Normal air movement Cardiovascular: Regular rate, Regular Rhythm Abdomen: Bowel Sounds Present, Soft, Non Tender, No Hepato-splenomegaly Extremities: No clubbing, No edema Skin: Ulcer/ Wound - Left plantar foot ulcer Wound Measurements and Assessment - Nurse 1 - General Ulcer Measurement Start: 12/10/18 08:35 Freq: Status: Active Protocol: Activity Type Activity Date Activity User E-Sign Co-Sign Detail Recorded Client Recorded Date Recorded By Document 12/10/18 08:35 RB [id number] 12/10/18 08:40 RB 12/10/18 08:35 Wound Center Nurse 1 [Ulcer Assessment] #4 L plantar -Combined with other wound No -Current Size (cm) - Length 1.8 -Current Size (cm) - Width 0.4 -Current Size (cm) - Depth 0.5 -Total Square Cm 0.72 -Tunneling No -Undermining/Tunneling No -Circular Undermining No -Exudate Amt Small -Exudate Type Serosanguineous -Wound Margin Thickened -Granulation Amt Medium (34-66%) -Granulation Quality [place] -Slough/Fibrin Yes -Necrosis Amt Small (1-33%) -Necrotic Tissue Type Adherent Slough -Structure Exposed N/A -Texture (Bernice-wound Skin Appearance) Assessed,Callus -Moisture (Bernice-wound Skin Appearance Assessed ) -Color (Bernice-wound Skin Appearance) Assessed -Temperature (Bernice-wound Skin No Abnormality Appearance) (Pt Warm) -Tenderness on Palpation (Bernice-wound No Skin Appearance) -Ulcer Cleansing Wound Cleanser -Anesthetic Used 5% Lidocaine Gel - Nurse 2 - General Ulcer CM Notes Start: 12/10/18 08:35 Freq: Status: Active Protocol: Activity Type Activity Date Activity User E-Sign Co-Sign Detail Recorded Client Recorded Date Recorded By Document 12/10/18 08:50 MW [id number] 12/10/18 08:58 MW 12/10/18 08:50 Wound Center Nurse 2 [Procedure/Treatment] -Time 08:51 -Correct Patient Yes -Correct Side, Site, Position Yes -Correct Procedure Yes -Procedure Performed Yes -Type of Procedure Debridement -Clinical Debridement Subcutaneous -Post Debridement Size (cm) - Length 2.0 -Post Debridement Size (cm) - Width 0.5 -Post Debridement Size (cm) - Depth 0.5 -Total Square Cm 1.00 -Wound/Ulcer Outcome Not Healed -Ulcer Cleansing Rinsed/ Irrigated with Saline -Foul Odor after Cleansing No -Bioengineered Tissue No -Bleeding Controlled with Pressure -Offloading No -Treatment Response Procedure Tolerated Well [See Physician Procedure note for Specifics] Pain Scale: 0-10 Numeric [Pain] -Is Patient Pain Free? Yes Musculoskeletal: No Tenderness to Palpation of Joints or Extremities Lymphatic: No Cervical, Supraclavicular, or Inguinal Adenopathy Neurological: Cranial nerves II-XII grossly intact, Neuro grossly intact Psych/Mental Status: Normal Affect, Appropriate Debridement Note Post-Debridement Measurements/Treatment WC - Nurse 2 - General Ulcer CM Notes Start: 12/10/18 08:35 Freq: Status: Active Protocol: Activity Type Activity Date Activity User E-Sign Co-Sign Detail Recorded Client Recorded Date Recorded By Document 12/10/18 08:50 MW [id number] 12/10/18 08:58 MW 12/10/18 08:50 Wound Center Nurse 2 #4 L plantar -Time 08:51 -Correct Patient Yes -Correct Side, Site, Position Yes -Correct Procedure Yes -Procedure Performed Yes -Type of Procedure Debridement -Clinical Debridement Subcutaneous -Post Debridement Size (cm) - Length 2.0 -Post Debridement Size (cm) - Width 0.5 -Post Debridement Size (cm) - Depth 0.5 -Total Square Cm 1.00 -Wound/Ulcer Outcome Not Healed -Ulcer Cleansing Rinsed/ Irrigated with Saline -Foul Odor after Cleansing No -Bioengineered Tissue No -Bleeding Controlled with Pressure -Offloading No -Treatment Response Procedure Tolerated Well Pain Scale: 0-10 Numeric Is Patient Pain Free? Yes Wound debrided: Left plantar foot wound Type of Debridement: Excisional debridement Anesthesia Used: 5% Lidocaine Gel Depth: Down to and including healthy tissue, in the subcutaneous layer Percentage of wound debrided: 100 Instrument Used: 7mm curette, - - Nippers Tissue Removed: Callus and fibrin Severity: Limited To Skin Breakdown Amount of bleeding with debridement: Mild Bleeding Controlled with: Compression and gauze Patient tolerated procedure well Assessment/Plan Active Problems Neuropathic ulcer of left foot with fat layer exposed (Acute) Delayed wound healing (Acute) Non-pressure chronic ulcer of other part of left foot with fat layer exposed (Acute) Infected ulcer of skin (Acute) Essential hypertension (Chronic) Assessment: Ulcer left foot with fat layer exposed. idiopathic neuropathy. obesity. Nonpressure traumatic open wound infected to left plantar foot Plan: Wash left foot and leg with Hibiclens or antibacterial soap. Pack wound with Promogran gauze and dressing. Follow-up in 1 week. Finish Bactroban DS 1 p.o. twice daily for 14 days. Start metronidazole 250 mg 1 p.o. 3 times daily for 10 days
[2018-12-24 08:08] VITALS: BP 128/73; PULSE 64; RESP 16; TEMP 36.2; BMI 36.5
--- NOTE | 2018-12-24 13:24 | HP.PCM_ITS ---
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 Current Visit: Yes Code(s): L97.522 - Non-pressure chronic ulcer of other part of left foot with fat layer exposed (2) Delayed wound healing Status: Chronic Current Visit: Yes Code(s): T14.8XXD - Other injury of unspecified body region, subsequent encounter (3) Malnutrition Status: Suspected Current Visit: No Qualifiers: Malnutrition type: protein-calorie malnutrition Protein-calorie malnutrition severity: mild Qualified Code(s): E44.1 - Mild protein-calorie malnutrition Code(s): E46 - Unspecified protein-calorie malnutrition (4) Obesity Status: Chronic Current Visit: Yes Qualifiers: Obesity type: unspecified obesity type Body mass index: unspecified BMI Code(s): E66.9 - Obesity, unspecified History of Present Illness Date of Service: 12/24/18 Chief Complaint: Traumatic wound left plantar foot History of Wound: 63-year-old white male about 1 month ago was taking a tarp down at his daughter's house and 1 [place] the [place] got into his shoe and he was walking on it. With his peripheral neuropathy he did not realize that he had gone through his shoe and into his foot. When he removed his sock that night he realized it was blood and a wound just a puncture wound at that time. Saw his family doctor a month later without treatments and he sent him to the wound center. He is seen today as a courtesy visit for Morelia Mary CNP. He is tolerating wound treatment. 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) Obesity (Chronic) Idiopathic neuropathy (Chronic) Idiopathic peripheral neuropathy (Chronic) Essential hypertension (Chronic) Allergies/Adverse Reactions: Allergies Penicillins [PCN] Adverse Reaction (Verified 07/02/16 08:49) Unknown Home Medications: Ambulatory Orders Medication Instructions Recorded Aspirin [Aspirin, Baby] 81 mg PO DAILY@0800 06/15/13 Atenolol [] 100 mg PO DAILY 06/22/13 Garlic 1,000 mg PO DAILY 06/22/13 - Family History Maternal No pertinent history Sibling No pertinent history Smoking Status: Never smoker Tobacco Use: Non-smoker Alcohol: None Drugs: None Review of Systems Constitutional: Denies: Chills, Fever, Weight Change Eyes: Denies: Pain, Vision Change HEENT: Denies: Difficulty Hearing, Difficulty Swallowing, Sinus Congestion Cardiovascular: Denies: Chest Pain, Palpitations Respiratory: Denies: Cough, Shortness of Breath Gastrointestinal: Denies: Diarrhea, Nausea, Vomiting Genitourinary: Denies: Dysuria, Hematuria Skin: Reports: Wounds Endocrine: Denies: Heat/ Cold Intolerance, Polydipsia, Polyuria Hematologic/ Lymphatic: Denies: Easy Bruising, Easy Bleeding - Physical Exam Vital Signs Temp Pulse Resp BP 97.1 F L 64 16 128/73 H 12/24/18 08:08 12/24/18 08:08 12/24/18 08:08 12/24/18 08:08 General: Alert, Oriented x3, Cooperative, No apparent distress HEENT: Atraumatic, Normocephalic Oral: Moist Mucosa Neck: Supple Lungs: Clear to auscultation Cardiovascular: Regular rate Abdomen: Soft, Non Tender, Obese Extremities: Edema Skin: Ulcer/ Wound Wound Measurements and Assessment WC - Nurse 1 - General Ulcer Measurement Start: 12/10/18 08:35 Freq: Status: Active Protocol: Activity Type Activity Date Activity User E-Sign Co-Sign Detail Recorded Client Recorded Date Recorded By Document 12/24/18 08:08 MW [id number] 12/24/18 08:15 MW 12/24/18 08:08 Wound Center Nurse 1 [Ulcer Assessment] #4 L plantar -Combined with other wound No -Current Size (cm) - Length 1.7 -Current Size (cm) - Width 0.3 -Current Size (cm) - Depth 0.5 -Total Square Cm 0.51 -Photo Taken No -Epithelialization None Present -Tunneling No -Undermining/Tunneling No -Circular Undermining No -Exudate Amt Medium -Exudate Type Yellow/Green -Wound Margin Flat & Intact -Granulation Amt Small (1-33%) -Granulation Quality [place] -Slough/Fibrin Yes -Necrosis Amt Medium (34-66%) -Necrotic Tissue Type Adherent Slough -Structure Exposed N/A -Texture (Bernice-wound Skin Appearance) Assessed, Scarring -Moisture (Bernice-wound Skin Appearance Assessed, ) Maceration -Color (Bernice-wound Skin Appearance) No Abnormality, Assessed -Temperature (Bernice-wound Skin No Abnormality Appearance) (Pt Warm) -Ulcer Cleansing Rinsed/ Irrigated with Saline -Foul Odor after Cleansing Yes -Anesthetic Used 5% Lidocaine Gel [Edema Assessment] -Lower Limb Edema Present No - Nurse 2 - General Ulcer CM Notes Start: 12/10/18 08:35 Freq: Status: Active Protocol: Activity Type Activity Date Activity User E-Sign Co-Sign Detail Recorded Client Recorded Date Recorded By Document 12/24/18 08:58 DV [id number] 12/24/18 09:09 DV 12/24/18 08:58 Wound Center Nurse 2 [Procedure/Treatment] #4 L plantar -Time 08:58 -Correct Patient Yes -Correct Side, Site, Position Yes -Correct Procedure Yes -Procedure Performed Yes -Type of Procedure Debridement -Clinical Debridement Subcutaneous -Post Debridement Size (cm) - Length 1.9 -Post Debridement Size (cm) - Width 0.5 -Post Debridement Size (cm) - Depth 0.5 -Total Square Cm 0.95 -Wound/Ulcer Outcome Not Healed -Ulcer Cleansing Rinsed/ Irrigated with Saline -Foul Odor after Cleansing No -Bioengineered Tissue No -Bleeding Controlled with Pressure -Offloading Yes -Treatment Response Procedure Tolerated Well [See Physician Procedure note for Specifics] Pain Scale: 0-10 Numeric [Pain] -Is Patient Pain Free? Yes Psych/Mental Status: Normal Affect, Appropriate Debridement Note Post-Debridement Measurements/Treatment - Nurse 2 - General Ulcer CM Notes Start: 12/10/18 08:35 Freq: Status: Active Protocol: Activity Type Activity Date Activity User E-Sign Co-Sign Detail Recorded Client Recorded Date Recorded By Document 12/10/18 08:50 MW [id number] 12/10/18 08:58 MW Document 12/24/18 08:58 DV [id number] 12/24/18 09:09 DV 12/10/18 12/24/18 08:50 08:58 Wound Center Nurse 2 #4 L plantar -Time 08:51 08:58 -Correct Patient Yes Yes -Correct Side, Site, Position Yes Yes -Correct Procedure Yes Yes -Procedure Performed Yes Yes -Type of Procedure Debridement Debridement -Clinical Debridement Subcutaneous Subcutaneous -Post Debridement Size (cm) - Length 2.0 1.9 -Post Debridement Size (cm) - Width 0.5 0.5 -Post Debridement Size (cm) - Depth 0.5 0.5 -Total Square Cm 1.00 0.95 -Wound/Ulcer Outcome Not Healed Not Healed -Ulcer Cleansing Rinsed/ Rinsed/ Irrigated with Irrigated with Saline Saline -Foul Odor after Cleansing No No -Bioengineered Tissue No No -Bleeding Controlled with Pressure Pressure -Offloading No Yes -Treatment Response Procedure Procedure Tolerated Well Tolerated Well Pain Scale: 0-10 Numeric Is Patient Pain Free? 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 idiopathic neuropathy. obesity. Nonpressure traumatic open wound infected to left plantar foot Plan: Wash left foot and leg with Hibiclens or antibacterial soap. Pack wound with Aquacel rope and cover with gauze dressing. Follow-up in 1 week
[2018-12-30 16:40] VITALS: BP 146/74; PULSE 67; RESP 20; TEMP 37.3; BMI 36.5
[2018-12-30 18:04] LABS: Hematocrit 45.4 % (40-54); Hemoglobin 15.4 g/dL (13.0-16.5); Mean Corp Hgb Conc 33.9 g/dL (32-36); Mean Corpuscular Hgb 30.1 pg (27.0-32.0); Mean Corpuscular Volume 88.7 fL (80-94); Mean Platelet Vol. 9.8 fl (6.2-12.0); Platelet Count 168 K/mm3 (150-450); RBC Distribution Width CV 12.6 % (11.6-14.6); RBC Distribution Width SD 41.3 fl (35.1-43.9); Red Blood Count 5.12 M/mm3 (4.6-6.2); White Blood Count 5.9 K/mm3 (4.4-11.0)
[2018-12-30 18:11] LABS: Hemoglobin A1c 5.6 % (4.2-6.3)
[2018-12-30 18:12] LABS: Erythrocyte Sedimentation Rate 8 mm/hr (0-20)
[2018-12-30 18:20] LABS: Anion Gap 8 (5-15); BUN 16 mg/dL (7-18); BUN/Creat Ratio 15.4 RATIO (10-20); Calcium,Total 9.3 mg/dL (8.5-10.1); Chloride 111 mmol/L (98-107); Creatinine, Serum 1.04 mg/dL (0.70-1.30); EST Glomerular Filtration Rate 77 mL/min (>60); Est Glom Filt Rate - Afr Amer 93 mL/min (>60); Estimated Creatinine Clearance 90.42 ml/min; Glucose 85 mg/dL (74-106); Potassium 4.2 mmol/L (3.5-5.1); Prealbumin 26.1 mg/dL (20.0-40.0); Sodium Level 144 mmol/L (136-145)
--- NOTE | 2018-12-30 18:22 | PCM.WC.PN ---
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 Code(s): L97.522 - Non-pressure chronic ulcer of other part of left foot with fat layer exposed (2) Delayed wound healing Status: Chronic Code(s): T14.8XXD - Other injury of unspecified body region, subsequent encounter (3) Essential hypertension Status: Chronic Code(s): I10 - Essential (primary) hypertension (4) Idiopathic peripheral neuropathy Status: Chronic Code(s): G60.9 - Hereditary and idiopathic neuropathy, unspecified (5) Obesity Status: Chronic Qualifiers: Obesity type: unspecified obesity type Body mass index: unspecified BMI Code(s): E66.9 - Obesity, unspecified (6) Malnutrition Status: Suspected Qualifiers: Malnutrition type: protein-calorie malnutrition Protein-calorie malnutrition severity: mild Qualified Code(s): E44.1 - Mild protein-calorie malnutrition Code(s): E46 - Unspecified protein-calorie malnutrition Type of Wound Date of Service: 12/30/18 Chief Complaint: Traumatic wound left plantar foot History of Wound: 63-year-old white male about 1 month ago was taking a tarp down at his daughter's house and 1 of the [place] got into his shoe and he was walking on it. With his peripheral neuropathy he did not realize that he had gone through his shoe and into his foot. When he removed his sock that night he realized it was blood and a wound just a puncture wound at that time. Saw his family doctor a month later without treatments and he sent him to the wound center. He will be transferring his care over to myself Antonio Andersen DNP, [employer] due to scheduling conflict. Progress of Wound: The wound appears stable without any signs of infection at this time. No foul smell. He is tolerating his antibiotics well. Develops a lot of callus around the opening because of the way he walks on it. He is currently not utilizing any sort of offloading mechanism at this time. He denies any signs of infection. The patient otherwise denies any fever, chills, nausea, vomiting, shortness of breath, chest pain or pressure, palpitations, orthopnea, lower extremity edema, syncope or presyncopal episodes. - Physical Exam Vital Signs Temp Pulse Resp BP 99.1 F 67 20 H 146/74 H 12/30/18 16:40 12/30/18 16:40 12/30/18 16:40 12/30/18 16:40 General: Alert, Oriented x3, Cooperative, No apparent distress HEENT: Atraumatic Oral: Moist Mucosa Lungs: Clear to auscultation Cardiovascular: Regular rate Abdomen: Soft, Non Tender, Obese Extremities: No clubbing, No cyanosis, Edema - Generalized bilateral lower extremity edema with chronic venous changes present bilateral lower extremities Skin: Ulcer/ Wound - Ulceration to left plantar surface with bed, wound edges are callused. No redness streaking or discharge noted at this time. Neurological: Neuro grossly intact, - - Peripheral neuropathy to bilateral lower extremities Psych/Mental Status: Normal Affect, Appropriate, Alert and oriented to time, place, person, mood and affect Debridement Note Post-Debridement Measurements/Treatment WC - Nurse 2 - General Ulcer CM Notes Start: 12/10/18 08:35 Freq: Status: Active Protocol: Activity Type Activity Date Activity User E-Sign Co-Sign Detail Recorded Client Recorded Date Recorded By Document 12/10/18 08:50 MW [id number] 12/10/18 08:58 MW Document 12/24/18 08:58 DV [id number] 12/24/18 09:09 DV Document 12/30/18 16:57 AN [id number] 12/30/18 17:06 AN 12/10/18 12/24/18 12/30/18 08:50 08:58 16:57 Wound Center Nurse 2 #4 L plantar -Time 08:51 08:58 16:57 -Correct Patient Yes Yes Yes -Correct Side, Site, Position Yes Yes Yes -Correct Procedure Yes Yes Yes -Procedure Performed Yes Yes Yes -Type of Procedure Debridement Debridement Debridement -Clinical Debridement Subcutaneous Subcutaneous Subcutaneous -Post Debridement Size (cm) - Length 2.0 1.9 2.1 -Post Debridement Size (cm) - Width 0.5 0.5 1.0 -Post Debridement Size (cm) - Depth 0.5 0.5 0.8 -Total Square Cm 1.00 0.95 2.10 -Wound/Ulcer Outcome Not Healed Not Healed Not Healed -Ulcer Cleansing Rinsed/ Rinsed/ Rinsed/ Irrigated with Irrigated with Irrigated with Saline Saline Saline -Foul Odor after Cleansing No No No -Bioengineered Tissue No No No -Bleeding Controlled with Pressure Pressure Pressure -Offloading No Yes No -Treatment Response Procedure Procedure Procedure Tolerated Well Tolerated Well Tolerated Well Pain Scale: 0-10 Numeric Is Patient Pain Free? Yes Yes Yes Wound debrided: Left plantar foot ulcer Laterality: Left Type of Debridement: Excisional debridement Anesthesia Used: 5% Lidocaine Gel Depth: in the subcutaneous layer Percentage of wound debrided: 100 Instrument Used: 5mm curette Tissue Removed: Slough and devitalized tissue Severity: Fat Layer Exposed Amount of bleeding with debridement: Mild Bleeding Controlled with: Pressure Patient tolerated procedure well Assessment/Plan Assessment: Ulcer left foot with fat layer exposed. idiopathic neuropathy. obesity. Nonpressure traumatic open wound infected to left plantar foot Plan: The patient was seen and examined at the wound center today and was updated on the plan of care. A subcutaneous debridement was performed today. The patient tolerated the procedure well. The patients wound care will consist of: Utilizing daily dressing of Aquacel silver and utilizing offloading postop shoe to reduce pressure. Wound cultures were collected prior and showed anaerobic cocci, staph, strep B, and Corynebacterium and patient has been completing his antibiotics. Baseline bloodwork ordered. Vascular studies will be ordered at next visit. Patient educated on the importance of diet on wound healing and instructed to increase protein and vitamin C intake. Given the delayed wound healing and the depth of the ulceration itself, will apply for the use of snap VAC and also advanced skin substitute. Patient verbalized understanding. Patient will follow up at wound healing center in one week or sooner if needed. This note was generated with [employer] dictation software. It may contain incorrect words, spelling, and punctuation that were not noted in checking the note before signing. Code Visit Office Visits / Consults: 22427 OV L3 Est 111xxx-113xx: [id number] Mimi subq tissue 20 sq cm/<
== END 2019-01-05 23:59 ==
LOC: WC 16:30
PROVIDERS: Family Provider Nurse Practitioner Primary Care; PCP Nurse Practitioner Primary Care; Referring Provider Nurse Practitioner; Visit Provider Nurse Practitioner
DX: S91.332A Puncture wound without foreign body, left foot, initial encounter (principal); W26.8XXA Contact with other sharp object(s), not elsewhere classified, initial encounter; I10 Essential (primary) hypertension; E66.9 Obesity, unspecified; G60.9 Hereditary and idiopathic neuropathy, unspecified; Z68.36 Body mass index [BMI] 36.0-36.9, adult; Z71.3 Dietary counseling and surveillance; R60.0 Localized edema; R09.89 Other specified symptoms and signs involving the circulatory and respiratory systems; L97.522 Non-pressure chronic ulcer of other part of left foot with fat layer exposed; L84 Corns and callosities; G62.9 Polyneuropathy, unspecified; L08.9 Local infection of the skin and subcutaneous tissue, unspecified; Z79.899 Other long term (current) drug therapy; Z79.82 Long term (current) use of aspirin
CPT/HCPCS: 11042; 80048; 83036; 84134; 85027; 85652

== ENCOUNTER → 2019-01-06 | Outpatient (CLI) | payer BC, SELFPAY ==
[2019-01-06 17:10] VITALS: BMI 36.5
--- NOTE | 2019-01-06 18:35 | RAD_ITS ---
STUDY: X-RAY - LEFT FOOT CLINICAL: Male, 63 years old. Plantar foot ulcer. TECHNIQUE: 3 view(s) of the foot. COMPARISON: None. FINDINGS: Normal talus, calcaneus, and tarsal bones. Normal visualized subtalar, talonavicular, calcaneocuboid, tarsal and tarsometatarsal articulations. Old injury of the second metatarsal with cortical thickening is present. Normal metatarsophalangeal joint of the great toe. Normal tibial and fibular sesamoid bones. Normal interphalangeal joint of the great toe. Normal phalanges of the great toe. Normal second through fifth metatarsophalangeal joints. Normal interphalangeal joints and phalanges of the lesser toes. The soft tissue structures are unremarkable. RAD/Foot min 3 Views IMPRESSION: No evidence of acute osseous abnormality. Electronically Signed: Geoff Melara DO at 21:58 EDT , Service support ,
== END | disposition home or self-care (01) ==
PROVIDERS: Family Provider Nurse Practitioner Primary Care; PCP Nurse Practitioner Primary Care; Referring Provider Nurse Practitioner; Visit Provider Nurse Practitioner
DX: L97.529 Non-pressure chronic ulcer of other part of left foot with unspecified severity (principal)
CPT/HCPCS: 73630

== ENCOUNTER 2019-02-03 16:45 | Outpatient (RCR) | payer BC, SELFPAY ==
[2019-01-06 01:04] VITALS: BP 146/74; PULSE 67; RESP 20; TEMP 37.3
[2019-01-06 17:10] VITALS: BP 140/82; PULSE 67; TEMP 36.4; BMI 36.5
--- NOTE | 2019-01-06 18:11 | PN.PCM_ITS ---
(1) Non-pressure chronic ulcer of other part of left foot with fat layer exposed Status: Acute Current Visit: Yes Code(s): L97.522 - Non-pressure chronic ulcer of other part of left foot with fat layer exposed (2) Exogenous obesity Status: Acute Current Visit: Yes Code(s): E66.9 - Obesity, unspecified (3) Delayed wound healing Status: Chronic Current Visit: No Code(s): T14.8XXD - Other injury of unspecified body region, subsequent encounter (4) Essential hypertension Status: Chronic Current Visit: No Code(s): I10 - Essential (primary) hypertension (5) Idiopathic neuropathy Status: Chronic Current Visit: No Code(s): G60.9 - Hereditary and idiopathic neuropathy, unspecified (6) 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 With his peripheral neuropathy he did not realize that he had gone through his shoe and into his foot. When he removed his sock that night he realized it was blood and a wound just a puncture wound at that time. Saw his family doctor a month later without treatments and he sent him to the wound center. He will be transferring his care over to myself Antonio Andersen DNP, TELEPHONER-C due to scheduling conflict. Progress of Wound: The wound appears stable without any signs of infection at this time. No foul smell. He completed antibiotics. Develops a lot of callus around the opening because of the way he walks on it. He is currently not utilizing any sort of offloading mechanism at this time. He denies any signs of infection. The patient otherwise denies any fever, chills, nausea, vomiting, shortness of breath, chest pain or pressure, palpitations, orthopnea, lower extremity edema, syncope or presyncopal episodes. - Physical Exam Vital Signs Temp Pulse Resp BP 97.5 F L 67 20 H 140/82 H 01/06/19 17:10 01/06/19 17:10 01/06/19 01:04 01/06/19 17:10 General: Alert, Oriented x3, Cooperative, No apparent distress HEENT: Atraumatic, PERRLA Oral: Moist Mucosa Neck: Supple Lungs: Clear to auscultation, Normal air movement Cardiovascular: Regular rate, Regular Rhythm Abdomen: Soft, Non Tender, Obese Extremities: No clubbing, No cyanosis, No edema Skin: Ulcer/ Wound - Ulceration left plantar foot with adherant slough, hypercallused edges Wound Measurements and Assessment WC - Nurse 1 - General Ulcer Measurement Start: 01/06/19 17:10 Freq: Status: Active Protocol: Activity Type Activity Date Activity User E-Sign Co-Sign Detail Recorded Client Recorded Date Recorded By Document 01/06/19 17:10 [id number] 01/06/19 17:26 01/06/19 17:10 Wound Center Nurse 1 [Ulcer Assessment] #4 L plantar -Combined with other wound No -Current Size (cm) - Length 1.4 -Current Size (cm) - Width 0.8 -Current Size (cm) - Depth 0.4 -Total Square Cm 1.12 -Photo Taken No -Epithelialization None Present -Tunneling No -Undermining/Tunneling No -Circular Undermining No -Exudate Amt Small -Exudate Type Serosanguineous -Wound Margin Fibrotic Scar, Thickened Scar -Granulation Amt Medium (34-66%) -Granulation Quality [place] -Slough/Fibrin No -Necrosis Amt None Present (0 %) -Structure Exposed None/Limited to Skin Breakdown -Texture (Bernice-wound Skin Appearance) Callus -Moisture (Bernice-wound Skin Appearance No Abnormality ) -Color (Bernice-wound Skin Appearance) Assessed,Palor -Temperature (Bernice-wound Skin No Abnormality Appearance) (Pt Warm) -Tenderness on Palpation (Bernice-wound No Skin Appearance) -Foul Odor after Cleansing No -Anesthetic Used 5% Lidocaine Gel [Edema Assessment] -Lower Limb Edema Present No WC - Nurse 2 - General Ulcer CM Notes Start: 01/06/19 17:10 Freq: Status: Active Protocol: Activity Type Activity Date Activity User E-Sign Co-Sign Detail Recorded Client Recorded Date Recorded By Document 01/06/19 17:45 AN [id number] 01/06/19 17:54 AN 01/06/19 17:45 Wound Center Nurse 2 [Procedure/Treatment] #4 L plantar -Time 17:52 -Correct Patient Yes -Correct Side, Site, Position Yes -Correct Procedure Yes -Procedure Performed Yes -Type of Procedure Debridement -Clinical Debridement Subcutaneous -Post Debridement Size (cm) - Length 1.5 -Post Debridement Size (cm) - Width 1.0 -Post Debridement Size (cm) - Depth 0.9 -Total Square Cm 1.50 -Wound/Ulcer Outcome Not Healed -Ulcer Cleansing Rinsed/ Irrigated with Saline -Foul Odor after Cleansing No -Bioengineered Tissue No -Bleeding Controlled with Pressure -Treatment Response Procedure Tolerated Well [See Physician Procedure note for Specifics] Pain Scale: 0-10 Numeric [Pain] -Is Patient Pain Free? Yes Neurological: Neuro grossly intact Psych/Mental Status: Normal Affect, Appropriate, Alert and oriented to time, place, person, mood and affect Debridement Note Post-Debridement Measurements/Treatment WC - Nurse 2 - General Ulcer CM Notes Start: 01/06/19 17:10 Freq: Status: Active Protocol: Activity Type Activity Date Activity User E-Sign Co-Sign Detail Recorded Client Recorded Date Recorded By Document 01/06/19 17:45 AN [id number] 01/06/19 17:54 AN 01/06/19 17:45 Wound Center Nurse 2 #4 L plantar -Time 17:52 -Correct Patient Yes -Correct Side, Site, Position Yes -Correct Procedure Yes -Procedure Performed Yes -Type of Procedure Debridement -Clinical Debridement Subcutaneous -Post Debridement Size (cm) - Length 1.5 -Post Debridement Size (cm) - Width 1.0 -Post Debridement Size (cm) - Depth 0.9 -Total Square Cm 1.50 -Wound/Ulcer Outcome Not Healed -Ulcer Cleansing Rinsed/ Irrigated with Saline -Foul Odor after Cleansing No -Bioengineered Tissue No -Bleeding Controlled with Pressure -Treatment Response Procedure Tolerated Well Pain Scale: 0-10 Numeric Is Patient Pain Free? Yes Wound debrided: Left plantar foot ulcer Laterality: Left Type of Debridement: Excisional debridement Anesthesia Used: 5% Lidocaine Gel Depth: in the subcutaneous layer Percentage of wound debrided: 100 Instrument Used: 5mm curette Tissue Removed: slough, and devitalized tissue, and callused edges Severity: Fat Layer Exposed Amount of bleeding with debridement: Mild Bleeding Controlled with: Pressure Patient tolerated procedure well Assessment/Plan Active Problems Non-pressure chronic ulcer of other part of left foot with fat layer exposed (Acute) Exogenous obesity (Acute) Assessment: Ulcer left foot with fat layer exposed. idiopathic neuropathy. obesity. Nonpressure traumatic open wound infected to left plantar foot Plan: The patient was seen and examined at the wound center today and was updated on the plan of care. A subcutaneous debridement was performed today. The patient tolerated the procedure well. The patients wound care will consist of: Utilizing daily dressing of Aquacel silver and utilizing offloading postop shoe to reduce pressure. Wound cultures were collected prior and showed anaerobic cocci, staph, strep B, and Corynebacterium and patient has been completing his antibiotics. Repeat culture done today and x-ray ordered due to delayed wound healing. Also due to delayed wound healing and depth of the wound, will apply for a snap VAC and an advanced skin substitute. Baseline bloodwork reviewed and was within normal limits. Vascular studies will be ordered at next visit. Patient educated on the importance of diet on wound healing and instructed to increase protein and vitamin C intake. Given the delayed wound healing and the depth of the ulceration itself, will apply for the use of snap VAC and also advanced skin substitute. Patient verbalized understanding. Patient will follow up at wound healing center in one week or sooner if needed. This note was generated with [employer] dictation software. It may contain incorrect words, spelling, and punctuation that were not noted in checking the note before signing. Code Visit 111xxx-113xx: 30820 Mimi subq tissue 20 sq cm/<
[2019-01-07 13:26] LABS: M R Staph aureus DNA By PCR Negative (Negative); Probe Check PASS; Specimen Processing Control PASS; Staph aureus DNA By PCR POSITIVE (Negative)
[2019-01-13 16:21] VITALS: BP 118/70; PULSE 71; RESP 18; TEMP 36.4; BMI 36.5
--- NOTE | 2019-01-13 19:44 | PCM.WC.PN ---
(1) Non-pressure chronic ulcer of other part of left foot with fat layer exposed Status: Acute Code(s): L97.522 - Non-pressure chronic ulcer of other part of left foot with fat layer exposed (2) Exogenous obesity Status: Acute Code(s): E66.9 - Obesity, unspecified (3) Delayed wound healing Status: Chronic Code(s): T14.8XXD - Other injury of unspecified body region, subsequent encounter (4) Essential hypertension Status: Chronic Code(s): I10 - Essential (primary) hypertension (5) Idiopathic neuropathy Status: Chronic Code(s): G60.9 - Hereditary and idiopathic neuropathy, unspecified (6) Neuropathic ulcer of left foot with fat layer exposed Status: Chronic Code(s): L97.522 - Non-pressure chronic ulcer of other part of left foot with fat layer exposed (7) Malnutrition Status: Suspected Qualifiers: Code(s): E46 - Unspecified protein-calorie malnutrition Type of Wound Date of Service: 01/13/19 Chief Complaint: Traumatic wound left plantar foot History of Wound: 63-year-old white male about 1 month ago was taking a tarp down at his daughter's house and 1 of the [place] got into his shoe and he was walking on it. With his peripheral neuropathy he did not realize that he had gone through his shoe and into his foot. When he removed his sock that night he realized it was blood and a wound just a puncture wound at that time. Saw his family doctor a month later without treatments and he sent him to the wound center. He will be transferring his care over to myself Antonio Andersen DNP, [employer] due to scheduling conflict. Progress of Wound: The wound appears stable without any signs of infection at this time. No foul smell. He will be started on Flagyl and Cipro as his wound culture grew E. coli, staph aureus, strep B, and anaerobic cocci. His x-ray was reviewed which showed an old injury to the second metatarsal with cortical thickening. He continues to develop a lot of callus around the opening because of the way he walks on it. He is currently not consistent and utilizing his offloading postop shoe. He denies any signs of infection. The patient otherwise denies any fever, chills, nausea, vomiting, shortness of breath, chest pain or pressure, palpitations, orthopnea, lower extremity edema, syncope or presyncopal episodes. - Physical Exam Vital Signs Temp Pulse Resp BP 97.5 F L 71 18 118/70 01/13/19 16:21 01/13/19 16:21 01/13/19 16:21 01/13/19 16:21 General: Alert, Oriented x3, Cooperative, No apparent distress HEENT: Atraumatic Oral: Moist Mucosa Lungs: Clear to auscultation Cardiovascular: Regular rate Abdomen: Soft, Non Tender Extremities: No clubbing, No cyanosis, No edema Skin: Ulcer/ Wound - Ulceration to left plantar adherent slough and hyperkeratotic callused edges, no foul-smelling discharge, redness, or swelling noted at this time. Neurological: Neuro grossly intact Psych/Mental Status: Normal Affect, Appropriate, Alert and oriented to time, place, person, mood and affect Debridement Note Post-Debridement Measurements/Treatment WC - Nurse 2 - General Ulcer CM Notes Start: 01/06/19 17:10 Freq: Status: Active Protocol: Activity Type Activity Date Activity User E-Sign Co-Sign Detail Recorded Client Recorded Date Recorded By Document 01/06/19 17:45 AN [id number] 01/06/19 17:54 AN Document 01/13/19 16:59 AN [id number] 01/13/19 17:04 AN 01/06/19 01/13/19 17:45 16:59 Wound Center Nurse 2 #4 L plantar -Time 17:52 16:59 -Correct Patient Yes Yes -Correct Side, Site, Position Yes Yes -Correct Procedure Yes Yes -Procedure Performed Yes Yes -Type of Procedure Debridement Debridement -Clinical Debridement Subcutaneous Subcutaneous -Post Debridement Size (cm) - Length 1.5 1 -Post Debridement Size (cm) - Width 1.0 1 -Post Debridement Size (cm) - Depth 0.9 0.9 -Total Square Cm 1.50 1 -Wound/Ulcer Outcome Not Healed Not Healed -Ulcer Cleansing Rinsed/ Rinsed/ Irrigated with Irrigated with Saline Saline -Foul Odor after Cleansing No No -Bioengineered Tissue No No -Bleeding Controlled with Pressure Pressure -Offloading Yes -Type of Offloading Surgical Shoe -Treatment Response Procedure Procedure Tolerated Well Tolerated Well Pain Scale: 0-10 Numeric Is Patient Pain Free? Yes Yes Wound debrided: Nonhealing ulcer left plantar foot Laterality: Left Type of Debridement: Excisional debridement Anesthesia Used: 5% Lidocaine Gel Depth: in the subcutaneous layer Percentage of wound debrided: 100 Instrument Used: 5mm curette Tissue Removed: Slough and devitalized tissue Severity: Fat Layer Exposed Amount of bleeding with debridement: Mild Bleeding Controlled with: Pressure Patient tolerated procedure well Assessment/Plan Assessment: Ulcer left foot with fat layer exposed. idiopathic neuropathy. obesity. Nonpressure traumatic open wound infected to left plantar foot Plan: The patient was seen and examined at the wound center today and was updated on the plan of care. A subcutaneous debridement was performed today. The patient tolerated the procedure well. The patients wound care will consist of: Utilizing daily dressing of Aquacel silver and utilizing offloading postop shoe to reduce pressure. Wound cultures were collected prior visit and showed anaerobic cocci, staph, strep B, and E. coli and patient will be placed on Flagyl and Cipro. Also due to delayed wound healing and depth of the wound, will apply for a snap VAC and an advanced skin substitute. Baseline bloodwork reviewed and was within normal limits. Vascular studies will be ordered at next visit. Patient educated on the importance of diet on wound healing and instructed to increase protein and vitamin C intake. Patient verbalized understanding. Patient will follow up at wound healing center in one week or sooner if needed. This note was generated with [employer] dictation software. It may contain incorrect words, spelling, and punctuation that were not noted in checking the note before signing. Code Visit 111xxx-113xx: 37228 Mimi subq tissue 20 sq cm/<
[2019-01-20 15:00] VITALS: BP 140/74; PULSE 75; RESP 18; TEMP 36.6; BMI 36.5
--- NOTE | 2019-01-20 19:06 | PN.PCM_ITS ---
(1) Non-pressure chronic ulcer of other part of left foot with fat layer exposed Status: Acute Current Visit: Yes Code(s): L97.522 - Non-pressure chronic ulcer of other part of left foot with fat layer exposed (2) Exogenous obesity Status: Acute Current Visit: Yes Code(s): E66.9 - Obesity, unspecified (3) Delayed wound healing Status: Chronic Current Visit: Yes Code(s): T14.8XXD - Other injury of unspecified body region, subsequent encounter (4) Essential hypertension Status: Chronic Current Visit: No Code(s): I10 - Essential (primary) hypertension (5) Idiopathic neuropathy Status: Chronic Current Visit: No Code(s): G60.9 - Hereditary and idiopathic neuropathy, unspecified (6) Neuropathic ulcer of left foot with fat layer exposed Status: Chronic Current Visit: Yes Code(s): L97.522 - Non-pressure chronic ulcer of other part of left foot with fat layer exposed (7) Malnutrition Status: Suspected Current Visit: Yes Qualifiers: Code(s): E46 - Unspecified protein-calorie malnutrition Type of Wound Date of Service: 01/20/19 Chief Complaint: Traumatic wound left plantar foot History of Wound: 63-year-old white male about 1 month ago was taking a tarp down at his daughter's house and [address] [place] [address] [place] got into his shoe and he was walking on it. With his peripheral neuropathy he did not realize that he had gone through his shoe and into his foot. When he removed his sock that night he realized it was blood and a wound just a puncture wound at that time. Saw his family doctor a month later without treatments and he sent him to the wound center. He will be transferring his care over to myself Antonio Andersen DNP, [employer] due to scheduling conflict. Progress of Wound: The wound appears stable without any signs of infection at this time. No foul smell. He is tolerating the Flagyl and Cipro as his wound culture grew E. coli, staph aureus, strep B, and anaerobic cocci. His x-ray was reviewed which showed an old injury to the second metatarsal with cortical thickening. He continues to develop a lot of callus around the opening because of the way he walks on it. He is currently not consistent and utilizing his offloading postop shoe. He denies any signs of infection. The patient otherwise denies any fever, chills, nausea, vomiting, shortness of breath, chest pain or pressure, palpitations, orthopnea, lower extremity edema, syncope or presyncopal episodes. - Physical Exam Vital Signs Temp Pulse Resp BP 98 F 75 18 140/74 H 01/20/19 15:00 01/20/19 15:00 01/20/19 15:00 01/20/19 15:00 General: Alert, Oriented x3, Cooperative, No apparent distress HEENT: Atraumatic Oral: Moist Mucosa Lungs: Clear to auscultation Cardiovascular: Regular rate Extremities: No clubbing, No cyanosis, No edema Skin: Ulcer/ Wound - Ulceration to left plantar foot beneath second metatarsal with some adherent slough and hyper callused wound edges, no purulent discharge or foul smell at this time. Wound Measurements and Assessment WC - Nurse 1 - General Ulcer Measurement Start: 01/06/19 17:10 Freq: Status: Active Protocol: Activity Type Activity Date Activity User E-Sign Co-Sign Detail Recorded Client Recorded Date Recorded By Document 01/20/19 15:00 RB [id number] 01/20/19 15:03 RB 01/20/19 15:00 Wound Center Nurse 1 [Ulcer Assessment] #4 L plantar -Combined with other wound No -Current Size (cm) - Length 0.6 -Current Size (cm) - Width 0.4 -Current Size (cm) - Depth 0.3 -Total Square Cm 0.24 -Tunneling No -Undermining/Tunneling No -Circular Undermining No -Exudate Amt Small -Exudate Type Serosanguineous -Wound Margin Distinct, Outline Attached -Granulation Amt Large (67-100%) -Granulation Quality [place] -Slough/Fibrin Yes -Necrosis Amt Small (1-33%) -Necrotic Tissue Type Adherent Slough -Structure Exposed N/A -Texture (Bernice-wound Skin Appearance) Assessed -Moisture (Bernice-wound Skin Appearance Assessed ) -Color (Bernice-wound Skin Appearance) Assessed -Temperature (Bernice-wound Skin No Abnormality Appearance) (Pt Warm) -Tenderness on Palpation (Bernice-wound No Skin Appearance) -Ulcer Cleansing Wound Cleanser -Foul Odor after Cleansing No -Anesthetic Used 5% Lidocaine Gel WC - Nurse 2 - General Ulcer CM Notes Start: 01/06/19 17:10 Freq: Status: Active Protocol: Activity Type Activity Date Activity User E-Sign Co-Sign Detail Recorded Client Recorded Date Recorded By Document 01/20/19 15:49 AN [id number] 01/20/19 15:53 AN 01/20/19 15:49 Wound Center Nurse 2 [Procedure/Treatment] -Time 15:51 -Correct Patient Yes -Correct Side, Site, Position Yes -Correct Procedure Yes -Procedure Performed Yes -Type of Procedure Debridement -Clinical Debridement Subcutaneous -Post Debridement Size (cm) - Length 0.8 -Post Debridement Size (cm) - Width 0.8 -Post Debridement Size (cm) - Depth 0.8 -Total Square Cm 0.64 -Wound/Ulcer Outcome Not Healed -Ulcer Cleansing Rinsed/ Irrigated with Saline -Foul Odor after Cleansing No -Bioengineered Tissue No -Bleeding Controlled with Pressure -Offloading Yes -Type of Offloading Surgical Shoe -Treatment Response Procedure Tolerated Well [See Physician Procedure note for Specifics] Pain Scale: 0-10 Numeric [Pain] -Is Patient Pain Free? Yes Neurological: Neuro grossly intact, - - Bilateral lower extremity neuropathy Psych/Mental Status: Normal Affect, Appropriate, Alert and oriented to time, place, person, mood and affect Debridement Note Post-Debridement Measurements/Treatment WC - Nurse 2 - General Ulcer CM Notes Start: 01/06/19 17:10 Freq: Status: Active Protocol: Activity Type Activity Date Activity User E-Sign Co-Sign Detail Recorded Client Recorded Date Recorded By Document 01/06/19 17:45 AN [id number] 01/06/19 17:54 AN Document 01/13/19 16:59 AN [id number] 01/13/19 17:04 AN Document 01/20/19 15:49 AN [id number] 01/20/19 15:53 AN 01/06/19 01/13/19 01/20/19 17:45 16:59 15:49 Wound Center Nurse 2 #4 L plantar -Time 17:52 16:59 15:51 -Correct Patient Yes Yes Yes -Correct Side, Site, Position Yes Yes Yes -Correct Procedure Yes Yes Yes -Procedure Performed Yes Yes Yes -Type of Procedure Debridement Debridement Debridement -Clinical Debridement Subcutaneous Subcutaneous Subcutaneous -Post Debridement Size (cm) - Length 1.5 1 0.8 -Post Debridement Size (cm) - Width 1.0 1 0.8 -Post Debridement Size (cm) - Depth 0.9 0.9 0.8 -Total Square Cm 1.50 1 0.64 -Wound/Ulcer Outcome Not Healed Not Healed Not Healed -Ulcer Cleansing Rinsed/ Rinsed/ Rinsed/ Irrigated with Irrigated with Irrigated with Saline Saline Saline -Foul Odor after Cleansing No No No -Bioengineered Tissue No No No -Bleeding Controlled with Pressure Pressure Pressure -Offloading Yes Yes -Type of Offloading Surgical Shoe Surgical Shoe -Treatment Response Procedure Procedure Procedure Tolerated Well Tolerated Well Tolerated Well Pain Scale: 0-10 Numeric Is Patient Pain Free? Yes Yes Yes Wound debrided: Nonhealing ulcer neuropathic to left plantar foot Laterality: Left Type of Debridement: Excisional debridement Anesthesia Used: 5% Lidocaine Gel Depth: in the subcutaneous layer Percentage of wound debrided: 100 Instrument Used: 5mm curette Tissue Removed: Slough and devitalized tissue Severity: Fat Layer Exposed Amount of bleeding with debridement: Mild Bleeding Controlled with: Pressure Patient tolerated procedure well Assessment/Plan Active Problems Neuropathic ulcer of left foot with fat layer exposed (Chronic) Delayed wound healing (Chronic) Non-pressure chronic ulcer of other part of left foot with fat layer exposed (Acute) Exogenous obesity (Acute) Assessment: Ulcer left foot with fat layer exposed. idiopathic neuropathy. obesity. Nonpressure traumatic open wound infected to left plantar foot Plan: The patient was seen and examined at the wound center today and was updated on the plan of care. A subcutaneous debridement was performed today. The patient tolerated the procedure well. The patients wound care will consist of: Utilizing daily dressing of Aquacel silver and utilizing offloading postop shoe to reduce pressure. Wound cultures were collected prior visit and showed anaerobic cocci, staph, strep B, and E. coli and patient is tolerating Flagyl and Cipro. Also due to delayed wound healing and depth of the wound, will apply for a snap VAC and an advanced skin substitute. Baseline bloodwork reviewed and was within normal limits. Vascular studies will be ordered at next visit. Patient educated on the importance of diet on wound healing and instructed to increase protein and vitamin C intake. Patient verbalized understanding. Patient will follow up at wound healing center in one week or sooner if needed. This note was generated with [employer] software. It may contain incorrect words, spelling, and punctuation that were not noted in checking the note before signing. Code Visit 111xxx-113xx: 72757 Mimi subq tissue 20 sq cm/<
[2019-01-27 16:54] VITALS: BP 125/79; PULSE 65; RESP 18; TEMP 36.3; BMI 36.5
--- NOTE | 2019-01-27 18:02 | PCM.WC.PN ---
(1) Non-pressure chronic ulcer of other part of left foot with fat layer exposed Status: Acute Code(s): L97.522 - Non-pressure chronic ulcer of other part of left foot with fat layer exposed (2) Exogenous obesity Status: Acute Code(s): E66.9 - Obesity, unspecified (3) Delayed wound healing Status: Chronic Code(s): T14.8XXD - Other injury of unspecified body region, subsequent encounter (4) Essential hypertension Status: Chronic Code(s): I10 - Essential (primary) hypertension (5) Idiopathic neuropathy Status: Chronic Code(s): G60.9 - Hereditary and idiopathic neuropathy, unspecified (6) Neuropathic ulcer of left foot with fat layer exposed Status: Chronic Code(s): L97.522 - Non-pressure chronic ulcer of other part of left foot with fat layer exposed (7) Malnutrition Status: Suspected Qualifiers: Code(s): E46 - Unspecified protein-calorie malnutrition Type of Wound Date of Service: 01/27/19 Chief Complaint: Traumatic wound left plantar foot History of Wound: 63-year-old white male about 1 month ago was taking a tarp down at his daughter's house and 1 of the [place] got into his shoe and he was walking on it. With his peripheral neuropathy he did not realize that he had gone through his shoe and into his foot. When he removed his sock that night he realized it was blood and a wound just a puncture wound at that time. Saw his family doctor a month later without treatments and he sent him to the wound center. He will be transferring his care over to myself Antonio Andersen DNP, [employer] due to scheduling conflict. Progress of Wound: The wound appears stable without any signs of infection at this time. No foul smell. He is completed the Flagyl and Cipro as his wound culture grew E. coli, staph aureus, strep B, and anaerobic cocci. His x-ray was reviewed which showed an old injury to the second metatarsal with cortical thickening. He continues to develop a lot of callus around the opening because of the way he walks on it. He is currently not consistent and utilizing his offloading postop shoe. He denies any signs of infection. The patient otherwise denies any fever, chills, nausea, vomiting, shortness of breath, chest pain or pressure, palpitations, orthopnea, lower extremity edema, syncope or presyncopal episodes. He does not have 0.5 cm circumferential undermining - Physical Exam Vital Signs Temp Pulse Resp BP 97.4 F L 65 18 125/79 H 01/27/19 16:54 01/27/19 16:54 01/27/19 16:54 01/27/19 16:54 General: Alert, Oriented x3, Cooperative, No apparent distress HEENT: Atraumatic Oral: Moist Mucosa Lungs: Clear to auscultation Cardiovascular: Regular rate Abdomen: Soft, Non Tender, Obese Extremities: No clubbing, No cyanosis Skin: Ulcer/ Wound - See nursing documentation, large amount of callus surrounding the neuropathic wound to the foot Neurological: Neuro grossly intact Psych/Mental Status: Normal Affect, Appropriate, Alert and oriented to time, place, person, mood and affect Debridement Note Post-Debridement Measurements/Treatment WC - Nurse 2 - General Ulcer CM Notes Start: 01/06/19 17:10 Freq: Status: Active Protocol: Activity Type Activity Date Activity User E-Sign Co-Sign Detail Recorded Client Recorded Date Recorded By Document 01/06/19 17:45 AN [id number] 01/06/19 17:54 AN Document 01/13/19 16:59 AN [id number] 01/13/19 17:04 AN Document 01/20/19 15:49 AN [id number] 01/20/19 15:53 AN Document 01/27/19 17:06 MW [id number] 01/27/19 17:15 MW 01/06/19 01/13/19 01/20/19 17:45 16:59 15:49 Wound Center Nurse 2 #4 L plantar -Time 17:52 16:59 15:51 -Correct Patient Yes Yes Yes -Correct Side, Site, Position Yes Yes Yes -Correct Procedure Yes Yes Yes -Procedure Performed Yes Yes Yes -Type of Procedure Debridement Debridement Debridement -Clinical Debridement Subcutaneous Subcutaneous Subcutaneous -Post Debridement Size (cm) - Length 1.5 1 0.8 -Post Debridement Size (cm) - Width 1.0 1 0.8 -Post Debridement Size (cm) - Depth 0.9 0.9 0.8 -Total Square Cm 1.50 1 0.64 -Wound/Ulcer Outcome Not Healed Not Healed Not Healed -Ulcer Cleansing Rinsed/ Rinsed/ Rinsed/ Irrigated with Irrigated with Irrigated with Saline Saline Saline -Foul Odor after Cleansing No No No -Bioengineered Tissue No No No -Bleeding Controlled with Pressure Pressure Pressure -Offloading Yes Yes -Type of Offloading Surgical Shoe Surgical Shoe -Treatment Response Procedure Procedure Procedure Tolerated Well Tolerated Well Tolerated Well Pain Scale: 0-10 Numeric Is Patient Pain Free? Yes Yes Yes 01/27/19 17:06 Wound Center Nurse 2 #4 L plantar -Time 17:06 -Correct Patient Yes -Correct Side, Site, Position Yes -Correct Procedure Yes -Procedure Performed Yes -Type of Procedure Debridement -Clinical Debridement Subcutaneous -Post Debridement Size (cm) - Length 0.8 -Post Debridement Size (cm) - Width 0.8 -Post Debridement Size (cm) - Depth 0.8 -Total Square Cm 0.64 -Wound/Ulcer Outcome Not Healed -Ulcer Cleansing Rinsed/ Irrigated with Saline -Foul Odor after Cleansing No -Bioengineered Tissue No -Bleeding Controlled with Pressure -Offloading No -Type of Offloading -Treatment Response Procedure Tolerated Well Pain Scale: 0-10 Numeric Is Patient Pain Free? Yes Wound debrided: Neuropathic wound left plantar foot Laterality: Left Type of Debridement: Excisional debridement Anesthesia Used: 5% Lidocaine Gel Depth: in the subcutaneous layer Percentage of wound debrided: 100 Instrument Used: 5mm curette Tissue Removed: Slough and devitalized tissue Severity: Fat Layer Exposed Amount of bleeding with debridement: Mild Bleeding Controlled with: Pressure Patient tolerated procedure well Assessment/Plan Assessment: Ulcer left foot with fat layer exposed. idiopathic neuropathy. obesity. Nonpressure traumatic open wound infected to left plantar foot Plan: The patient was seen and examined at the wound center today and was updated on the plan of care. A subcutaneous debridement was performed today. The patient tolerated the procedure well. The patients wound care will consist of: Utilizing daily dressing of Aquacel silver and utilizing offloading postop shoe to reduce pressure. Wound cultures were collected prior visit and showed anaerobic cocci, staph, strep B, and E. coli and patient is completed Flagyl and Cipro. Also due to delayed wound healing and depth of the wound, will apply for a snap VAC and an advanced skin substitute. Baseline bloodwork reviewed and was within normal limits. Vascular studies will be ordered at next visit. Patient educated on the importance of diet on wound healing and instructed to increase protein and vitamin C intake. Patient verbalized understanding. Patient will follow up at wound healing center in one week or sooner if needed. This note was generated with [employer] dictation software. It may contain incorrect words, spelling, and punctuation that were not noted in checking the note before signing. Code Visit 111xxx-113xx: [id number] Mimi subq tissue 20 sq cm/<
[2019-02-03 16:41] VITALS: BP 130/86; PULSE 64; RESP 18; TEMP 37.1; BMI 36.5
--- NOTE | 2019-02-06 20:24 | PCM.WC.PN ---
(1) Non-pressure chronic ulcer of other part of left foot with fat layer exposed Status: Acute Code(s): L97.522 - Non-pressure chronic ulcer of other part of left foot with fat layer exposed (2) Exogenous obesity Status: Acute Code(s): E66.9 - Obesity, unspecified (3) Delayed wound healing Status: Chronic Code(s): T14.8XXD - Other injury of unspecified body region, subsequent encounter (4) Essential hypertension Status: Chronic Code(s): I10 - Essential (primary) hypertension (5) Idiopathic neuropathy Status: Chronic Code(s): G60.9 - Hereditary and idiopathic neuropathy, unspecified (6) Neuropathic ulcer of left foot with fat layer exposed Status: Chronic Code(s): L97.522 - Non-pressure chronic ulcer of other part of left foot with fat layer exposed (7) Malnutrition Status: Suspected Qualifiers: Code(s): E46 - Unspecified protein-calorie malnutrition Type of Wound Date of Service: 02/03/19 Chief Complaint: Traumatic wound left plantar foot History of Wound: 63-year-old white male about 1 month ago was taking a tarp down at his daughter's house and 1 of the [place] got into his shoe and he was walking on it. With his peripheral neuropathy he did not realize that he had gone through his shoe and into his foot. When he removed his sock that night he realized it was blood and a wound just a puncture wound at that time. Saw his family doctor a month later without treatments and he sent him to the wound center. He will be transferring his care over to myself Antonio Andersen DNP, [employer] NEUR[employer] due to scheduling conflict. Progress of Wound: The wound appears stable without any signs of infection at this time. No foul smell. He is completed the Flagyl and Cipro as his wound culture grew E. coli, staph aureus, strep B, and anaerobic cocci. His x-ray was reviewed which showed an old injury to the second metatarsal with cortical thickening. He continues to develop a lot of callus around the opening because of the way he walks on it. He is currently not consistent and utilizing his offloading postop shoe. He denies any signs of infection. The patient otherwise denies any fever, chills, nausea, vomiting, shortness of breath, chest pain or pressure, palpitations, orthopnea, lower extremity edema, syncope or presyncopal episodes. He does now have 0.5 cm circumferential undermining. Referred to podiatry for a consult due to delayed wound healing. - Physical Exam Vital Signs Temp Pulse Resp BP 98.7 F 64 18 130/86 H 02/03/19 16:41 02/03/19 16:41 02/03/19 16:41 02/03/19 16:41 General: Alert, Oriented x3, Cooperative, No apparent distress HEENT: Atraumatic Oral: Moist Mucosa Lungs: Clear to auscultation Cardiovascular: Regular rate Abdomen: Soft Extremities: No clubbing, No cyanosis, No edema Skin: Ulcer/ Wound - ulceration to left plantar foot with adherant slough and callused wound edges, no foul smell Neurological: Neuro grossly intact Psych/Mental Status: Normal Affect, Appropriate, Alert and oriented to time, place, person, mood and affect Debridement Note Post-Debridement Measurements/Treatment WC - Nurse 2 - General Ulcer CM Notes Start: 01/06/19 17:10 Freq: Status: Active Protocol: Activity Type Activity Date Activity User E-Sign Co-Sign Detail Recorded Client Recorded Date Recorded By Document 01/06/19 17:45 AN [id number] 01/06/19 17:54 AN Document 01/13/19 16:59 AN [id number] 01/13/19 17:04 AN Document 01/20/19 15:49 AN [id number] 01/20/19 15:53 AN Document 01/27/19 17:06 MW [id number] 01/27/19 17:15 MW Document 02/03/19 17:05 MW [id number] 02/03/19 17:10 MW 01/06/19 01/13/19 01/20/19 17:45 16:59 15:49 Wound Center Nurse 2 #4 L plantar -Time 17:52 16:59 15:51 -Correct Patient Yes Yes Yes -Correct Side, Site, Position Yes Yes Yes -Correct Procedure Yes Yes Yes -Procedure Performed Yes Yes Yes -Type of Procedure Debridement Debridement Debridement -Clinical Debridement Subcutaneous Subcutaneous Subcutaneous -Post Debridement Size (cm) - Length 1.5 1 0.8 -Post Debridement Size (cm) - Width 1.0 1 0.8 -Post Debridement Size (cm) - Depth 0.9 0.9 0.8 -Total Square Cm 1.50 1 0.64 -Wound/Ulcer Outcome Not Healed Not Healed Not Healed -Ulcer Cleansing Rinsed/ Rinsed/ Rinsed/ Irrigated with Irrigated with Irrigated with Saline Saline Saline -Foul Odor after Cleansing No No No -Bioengineered Tissue No No No -Bleeding Controlled with Pressure Pressure Pressure -Offloading Yes Yes -Type of Offloading Surgical Shoe Surgical Shoe -Treatment Response Procedure Procedure Procedure Tolerated Well Tolerated Well Tolerated Well Pain Scale: 0-10 Numeric Is Patient Pain Free? Yes Yes Yes 01/27/19 02/03/19 17:06 17:05 Wound Center Nurse 2 #4 L plantar -Time 17:06 17:05 -Correct Patient Yes Yes -Correct Side, Site, Position Yes Yes -Correct Procedure Yes Yes -Procedure Performed Yes Yes -Type of Procedure Debridement Debridement -Clinical Debridement Subcutaneous Subcutaneous -Post Debridement Size (cm) - Length 0.8 0.9 -Post Debridement Size (cm) - Width 0.8 0.9 -Post Debridement Size (cm) - Depth 0.8 0.9 -Total Square Cm 0.64 0.81 -Wound/Ulcer Outcome Not Healed Not Healed -Ulcer Cleansing Rinsed/ Rinsed/ Irrigated with Irrigated with Saline Saline -Foul Odor after Cleansing No No -Bioengineered Tissue No No -Bleeding Controlled with Pressure Pressure -Offloading No No -Type of Offloading -Treatment Response Procedure Procedure Tolerated Well Tolerated Well Pain Scale: 0-10 Numeric Is Patient Pain Free? Yes Yes Wound debrided: left plantar foot neuropathic ulcer Laterality: Left Type of Debridement: Excisional debridement Anesthesia Used: 5% Lidocaine Gel Depth: in the subcutaneous layer Percentage of wound debrided: 100 Instrument Used: 7mm curette, #10 blade Tissue Removed: slough and devitalized tissue and callused edges Severity: Fat Layer Exposed Amount of bleeding with debridement: Mild Bleeding Controlled with: Pressure Patient tolerated procedure well Assessment/Plan Assessment: Ulcer left foot with fat layer exposed. idiopathic neuropathy. obesity. Nonpressure traumatic open wound infected to left plantar foot Plan: The patient was seen and examined at the wound center today and was updated on the plan of care. A subcutaneous debridement was performed today. The patient tolerated the procedure well. The patients wound care will consist of: Utilizing daily dressing of Aquacel silver and utilizing offloading postop shoe to reduce pressure. Wound cultures were collected prior visit and showed anaerobic cocci, staph, strep B, and E. coli and patient completed Flagyl and Cipro. Also due to delayed wound healing and depth of the wound, will apply for a snap VAC and an advanced skin substitute. Baseline bloodwork reviewed and was within normal limits. Vascular studies will be ordered at next visit. Patient educated on the importance of diet on wound healing and instructed to increase protein and vitamin C intake. Patient verbalized understanding. Patient will follow up at wound healing center in one week or sooner if needed. Will consult podiatry given the location of ulcer and no substantial improvement of ulcer. This note was generated with [employer] Document Management software dictation software. It may contain incorrect words, spelling, and punctuation that were not noted in checking the note before signing. Code Visit [id number]: [id number] Mimi subq tissue 20 sq cm/<
== END 2019-02-05 23:59 ==
LOC: WC 16:45
PROVIDERS: Family Provider Nurse Practitioner Primary Care; PCP Nurse Practitioner Primary Care; Referring Provider Nurse Practitioner; Visit Provider Nurse Practitioner
DX: S91.332A Puncture wound without foreign body, left foot, initial encounter (principal); W26.8XXA Contact with other sharp object(s), not elsewhere classified, initial encounter; L97.522 Non-pressure chronic ulcer of other part of left foot with fat layer exposed; G60.9 Hereditary and idiopathic neuropathy, unspecified; I10 Essential (primary) hypertension; E66.9 Obesity, unspecified; Z68.36 Body mass index [BMI] 36.0-36.9, adult; Z71.3 Dietary counseling and surveillance
CPT/HCPCS: 11042; 87070; 87075; 87077; 87186; 87205; 87640

== ENCOUNTER 2019-03-02 09:30 | Outpatient (RCR) | payer BC, SELFPAY ==
[2019-02-06 00:53] VITALS: BP 130/86; PULSE 64; RESP 18; TEMP 37.1
[2019-02-09 17:01] VITALS: BP 125/75; PULSE 66; RESP 18; TEMP 36.6; BMI 36.5
--- NOTE | 2019-02-09 17:24 | PN.PCM_ITS ---
(1) Non-pressure chronic ulcer of other part of left foot with fat layer exposed Status: Chronic Current Visit: Yes Code(s): L97.522 - Non-pressure chronic ulcer of other part of left foot with fat layer exposed (2) Other specified peripheral vascular diseases Status: Suspected Current Visit: Yes Code(s): I73.89 - Other specified peripheral vascular diseases (3) Venous insufficiency (chronic) (peripheral) Status: Suspected Current Visit: Yes Code(s): I87.2 - Venous insufficiency (chronic) (peripheral) (4) Malnutrition Status: Suspected Current Visit: Yes Code(s): E46 - Unspecified protein- calorie malnutrition (5) Puncture wound of foot, left, complicated Status: Chronic Current Visit: Yes Qualifiers: Encounter type: sequela Qualified Code(s): S91.332S - Puncture wound without foreign body, left foot, sequela Code(s): S91.332A - Puncture wound without foreign body, left foot, initial encounter (6) Difficulty in walking, not elsewhere classified Status: Chronic Current Visit: Yes Code(s): R26.2 - Difficulty in walking, not elsewhere classified (7) Delayed wound healing Status: Chronic Current Visit: No Code(s): T14.8XXD - Other injury of unspecified body region, subsequent encounter (8) Malnutrition Status: Suspected Current Visit: Yes Qualifiers: Code(s): E46 - Unspecified protein-calorie malnutrition (9) Obesity Status: Chronic Current Visit: Yes Code(s): E66.9 - Obesity, unspecified (10) Idiopathic neuropathy Status: Chronic Current Visit: Yes Code(s): G60.9 - Hereditary and idiopathic neuropathy, unspecified Type of Wound Date of Service: 02/09/19 Chief Complaint: Traumatic wound left plantar foot History of Wound: 63-year-old white male months ago was taking a tarp down at his daughter's house and one of the [place] got into his shoe and he was walking on it. With his peripheral neuropathy he did not realize that he had gone through his shoe and into his foot. He has been changing his dressing with Aquacell and tries to keep pressure off it by walking on his heel. He admits he wears steel toe shoes at work. He denies odor or redness. This is chronic in nature. He relates he is retiring at the end of March. He denies fever, chill, nausea, vomiting, redness, odor streaking to the foot. Progress of Wound: Stable - Physical Exam Vital Signs Temp Pulse Resp BP 97.8 F 66 18 125/75 H 02/09/19 17:01 02/09/19 17:01 02/09/19 17:02/09/19 17:01 General: Alert, Oriented x3, Cooperative, No apparent distress HEENT: Atraumatic Extremities: No cyanosis, Capillary Refill Less than 3 Seconds, No Calf Tenderness - Negative Oral and Alvarez sign, Diminished Peripheral Pulses, Edema, - - Dorsal contracture lesser digit with prominent metatarsal head Skin: Ulcer/ Wound - No purulence, erythema, streaking, odor, infection. No probe to bone or joint. No deep tissue exposure noted. Callus peripheral is noted. The adjacent skin is hairless and atrophic. There is no interdigital maceration or necrosis Wound Measurements and Assessment WC - Nurse 1 - General Ulcer Measurement Start: 02/09/19 17:01 Freq: Status: Active Protocol: Activity Type Activity Date Activity User E-Sign Co-Sign Detail Recorded Client Recorded Date Recorded By Document 02/09/19 17:01 [id number] 02/09/19 17:03 RB 02/09/19 17:01 Wound Center Nurse 1 [Ulcer Assessment] #4 L plantar -Combined with other wound No -Current Size (cm) - Length 0.4 -Current Size (cm) - Width 0.4 -Current Size (cm) - Depth 0.3 -Total Square Cm 0.16 -Tunneling No -Undermining/Tunneling Yes -Undermining/Tunneling Starts (O' 12 clock) -Undermining/Tunneling Ends (O'clock) 12 -Maximum Distance (cm) 0.3 -Circular Undermining Yes -Exudate Amt Small -Exudate Type Serosanguineous -Wound Margin Thickened -Granulation Amt Medium (34-66%) -Granulation Quality [place] -Slough/Fibrin Yes -Necrosis Amt Small (1-33%) -Necrotic Tissue Type Adherent Slough -Structure Exposed N/A -Texture (Bernice-wound Skin Appearance) Callus -Moisture (Bernice-wound Skin Appearance Assessed ) -Color (Bernice-wound Skin Appearance) Assessed -Temperature (Bernice-wound Skin No Abnormality Appearance) (Pt Warm) -Tenderness on Palpation (Bernice-wound No Skin Appearance) -Ulcer Cleansing Wound Cleanser -Foul Odor after Cleansing No -Anesthetic Used 5% Lidocaine Gel SHEEBA - Nurse 2 - General Ulcer CM Notes Start: 02/09/19 17:01 Freq: Status: Active Protocol: Activity Type Activity Date Activity User E-Sign Co-Sign Detail Recorded Client Recorded Date Recorded By Document 02/09/19 17:11 AN [id number] 02/09/19 17:15 AN 02/09/19 17:11 Wound Center Nurse 2 [Procedure/Treatment] -Time 17:11 -Correct Patient Yes -Correct Side, Site, Position Yes -Correct Procedure Yes -Procedure Performed Yes -Type of Procedure Debridement -Clinical Debridement Subcutaneous -Post Debridement Size (cm) - Length 0.5 -Post Debridement Size (cm) - Width 0.5 -Post Debridement Size (cm) - Depth 0.3 -Total Square Cm 0.25 -Wound/Ulcer Outcome Not Healed -Ulcer Cleansing Rinsed/ Irrigated with Saline -Foul Odor after Cleansing No -Bioengineered Tissue No -Bleeding Controlled with Pressure -Offloading Yes -Type of Offloading Surgical Shoe -Treatment Response Procedure Tolerated Well [See Physician Procedure note for Specifics] Pain Scale: 0-10 Numeric [Pain] -Is Patient Pain Free? Yes Musculoskeletal: No Tenderness to Palpation of Joints or Extremities, Muscle Wasting, - - No pain with passive manipulation of digits. Compartments to the lower extremities remain soft to palpate Neurological: - - Lack of normal epicritic sensation light touch is consistent with neuropathy status Psych/Mental Status: Normal Affect, Appropriate Debridement Note Post-Debridement Measurements/Treatment SHEEBA - Nurse 2 - General Ulcer CM Notes Start: 02/09/19 17:01 Freq: Status: Active Protocol: Activity Type Activity Date Activity User E-Sign Co-Sign Detail Recorded Client Recorded Date Recorded By Document 02/09/19 17:11 AN [id number] 02/09/19 17:15 AN 02/09/19 17:11 Wound Center Nurse 2 #4 L plantar -Time 17:11 -Correct Patient Yes -Correct Side, Site, Position Yes -Correct Procedure Yes -Procedure Performed Yes -Type of Procedure Debridement -Clinical Debridement Subcutaneous -Post Debridement Size (cm) - Length 0.5 -Post Debridement Size (cm) - Width 0.5 -Post Debridement Size (cm) - Depth 0.3 -Total Square Cm 0.25 -Wound/Ulcer Outcome Not Healed -Ulcer Cleansing Rinsed/ Irrigated with Saline -Foul Odor after Cleansing No -Bioengineered Tissue No -Bleeding Controlled with Pressure -Offloading Yes -Type of Offloading Surgical Shoe -Treatment Response Procedure Tolerated Well Pain Scale: 0-10 Numeric Is Patient Pain Free? Yes Wound debrided: plantar forefoot Laterality: Left Type of Debridement: Excisional debridement Anesthesia Used: 5% Lidocaine Gel Depth: in the subcutaneous layer Percentage of wound debrided: 100 Instrument Used: #15 blade Tissue Removed: fibrous, devitalized subcutaneous, biofilm, slough Severity: Fat Layer Exposed Amount of bleeding with debridement: Mild Bleeding Controlled with: Pressure Patient tolerated procedure well Assessment/Plan Active Problems Obesity (Chronic) Idiopathic neuropathy (Chronic) Non-pressure chronic ulcer of other part of left foot with fat layer exposed (Chronic) Puncture wound of foot, left, complicated (Chronic) Difficulty in walking, not elsewhere classified (Chronic) Assessment: Ulcer left foot with fat layer exposed. idiopathic neuropathy. obesity. Nonpressure traumatic open wound infected to left plantar foot Plan: The patient was seen and examined at the wound center today and was updated on the plan of care. A subcutaneous debridement was performed today. The patient tolerated the procedure well. The patients wound care will consist of: Utilizing daily dressing of Aquacel silver and utilizing offloading postop shoe to reduce pressure. Wound cultures were collected previously by his prior wound healing center provider and showed anaerobic cocci, staph, strep B, and E. coli and patient completed Flagyl and Cipro. He was reassured no local signs of infection noted today and I do not recommend antibiotics. his previous diagnostic data with lab work was reviewed. Patient educated on the importance of diet on wound healing and instructed to increase protein and vitamin C intake. Kyle nutritional supplementation was provided to optimize healing he is advised on safe for proper use. I recommend improved offloading with cam walker boot. He relates he cannot take time off for but now has to wear steel shoes. I recommend he brings his steel toe shoes and second modified offloading pocket into the devices. I recommend he proceed forward with a cam walker boot to reduce his edema and offload his ulcer with dual density Plastizote liners. I recommend that he tries to wear this at work with the toe and altered work functions however if this is not possible it is all imperative for him to at least wear the boot and offload the ulcer while he is not at work. A prescription referral was provided for him to get fitted and obtain this at the foot and ankle center. Given his delayed healing status and prior history of multiple lower extremity ulcers I recommend vascular work-up for arterial venous disease. Orders were provided for noninvasive arterial studies and venous Doppler including reflux and examination. Patient will follow up at wound healing center in one week or sooner if needed. I answered all his questions.
[2019-02-16 16:43] VITALS: BP 143/77; PULSE 73; RESP 16; TEMP 36.6; BMI 36.5
--- NOTE | 2019-02-16 17:03 | PN.PCM_ITS ---
(1) Non-pressure chronic ulcer of other part of left foot with fat layer exposed Status: Chronic Current Visit: Yes Code(s): L97.522 - Non-pressure chronic ulcer of other part of left foot with fat layer exposed (2) Other specified peripheral vascular diseases Status: Suspected Current Visit: Yes Code(s): I73.89 - Other specified peripheral vascular diseases (3) Venous insufficiency (chronic) (peripheral) Status: Suspected Current Visit: Yes Code(s): I87.2 - Venous insufficiency (chronic) (peripheral) (4) Malnutrition Status: Suspected Current Visit: Yes Code(s): E46 - Unspecified protein- calorie malnutrition (5) Puncture wound of foot, left, complicated Status: Chronic Current Visit: Yes Qualifiers: Encounter type: sequela Qualified Code(s): S91.332S - Puncture wound without foreign body, left foot, sequela Code(s): S91.332A - Puncture wound without foreign body, left foot, initial encounter (6) Difficulty in walking, not elsewhere classified Status: Chronic Current Visit: Yes Code(s): R26.2 - Difficulty in walking, not elsewhere classified (7) Delayed wound healing Status: Chronic Current Visit: No Code(s): T14.8XXD - Other injury of unspecified body region, subsequent encounter (8) Malnutrition Status: Suspected Current Visit: Yes Qualifiers: Code(s): E46 - Unspecified protein-calorie malnutrition (9) Obesity Status: Chronic Current Visit: Yes Code(s): E66.9 - Obesity, unspecified (10) Idiopathic neuropathy Status: Chronic Current Visit: Yes Code(s): G60.9 - Hereditary and idiopathic neuropathy, unspecified Type of Wound Date of Service: 02/16/19 Chief Complaint: Traumatic wound left plantar foot History of Wound: 63-year-old white male months ago was taking a tarp down at his daughter's house and one of the [place] got into his shoe and he was walking on it. With his peripheral neuropathy he did not realize that he had gone through his shoe and into his foot. He has been changing his dressing with Aquacell and tries to keep pressure off it by walking on his heel. He admits he wears steel toe shoes at work. He denies odor or redness. This is chronic in nature. He relates he is retiring at the end of March. He denies fever, chill, nausea, vomiting, redness, odor streaking to the foot. Progress of Wound: Stable - Physical Exam Vital Signs Temp Pulse Resp BP 97.9 F 73 16 143/77 H 02/16/19 16:43 02/16/19 16:43 02/16/19 16:43 02/16/19 16:43 General: Alert, Oriented x3, Cooperative, No apparent distress Extremities: No cyanosis, Capillary Refill Less than 3 Seconds, No Calf Tenderness, Diminished Peripheral Pulses, Edema Skin: Ulcer/ Wound - No purulence, erythema, streaking, odor, infection Wound Measurements and Assessment WC - Nurse 1 - General Ulcer Measurement Start: 02/09/19 17:01 Freq: Status: Active Protocol: Activity Type Activity Date Activity User E-Sign Co-Sign Detail Recorded Client Recorded Date Recorded By Document 02/16/19 16:43 [facility] [id number] 02/16/19 16:48 [facility] 02/16/19 16:43 Wound Center Nurse 1 [Ulcer Assessment] #4 L plantar -Combined with other wound No -Current Size (cm) - Length 0.6 -Current Size (cm) - Width 0.3 -Current Size (cm) - Depth 0.4 -Total Square Cm 0.18 -Photo Taken No -Epithelialization None Present -Tunneling No -Undermining/Tunneling No -Circular Undermining No -Exudate Amt Medium -Exudate Type Serosanguineous -Wound Margin Thickened -Granulation Amt Large (67-100%) -Granulation Quality Red -Slough/Fibrin Yes -Necrosis Amt Small (1-33%) -Necrotic Tissue Type Adherent Slough -Texture (Bernice-wound Skin Appearance) Assessed,Callus ,Scarring -Moisture (Bernice-wound Skin Appearance Assessed, ) Maceration,Dry/ Scaly -Color (Bernice-wound Skin Appearance) Assessed,Palor -Temperature (Bernice-wound Skin No Abnormality Appearance) (Pt Warm) -Tenderness on Palpation (Bernice-wound No Skin Appearance) -Ulcer Cleansing Rinsed/ Irrigated with Saline -Foul Odor after Cleansing No -Anesthetic Used 5% Lidocaine Gel WC - Nurse 2 - General Ulcer CM Notes Start: 02/09/19 17:01 Freq: Status: Active Protocol: Activity Type Activity Date Activity User E-Sign Co-Sign Detail Recorded Client Recorded Date Recorded By Document 02/16/19 16:58 [id number] 02/16/19 17:00 02/16/19 16:58 Wound Center Nurse 2 [Procedure/Treatment] -Time 16:59 -Correct Patient Yes -Correct Side, Site, Position Yes -Correct Procedure Yes -Procedure Performed Yes -Type of Procedure Debridement -Clinical Debridement Subcutaneous -Post Debridement Size (cm) - Length 0.9 -Post Debridement Size (cm) - Width 0.7 -Post Debridement Size (cm) - Depth 0.3 -Total Square Cm 0.63 -Wound/Ulcer Outcome Not Healed -Ulcer Cleansing Rinsed/ Irrigated with Saline -Foul Odor after Cleansing No -Bioengineered Tissue No -Bleeding Controlled with Pressure -Offloading Yes -Type of Offloading Camwalker -Treatment Response Procedure Tolerated Well [See Physician Procedure note for Specifics] Pain Scale: 0-10 Numeric [Pain] -Is Patient Pain Free? Yes Musculoskeletal: No Tenderness to Palpation of Joints or Extremities, Muscle Wasting Neurological: - - Lack of epicritic sensation light touch Psych/Mental Status: Normal Affect, Appropriate Debridement Note Post-Debridement Measurements/Treatment WC - Nurse 2 - General Ulcer CM Notes Start: 02/09/19 17:01 Freq: Status: Active Protocol: Activity Type Activity Date Activity User E-Sign Co-Sign Detail Recorded Client Recorded Date Recorded By Document 02/09/19 17:11 [id number] 02/09/19 17:15 AN Document 02/16/19 16:58 [id number] 02/16/19 17:00 02/09/19 02/16/19 17:11 16:58 Wound Center Nurse 2 #4 L plantar -Time 17:11 16:59 -Correct Patient Yes Yes -Correct Side, Site, Position Yes Yes -Correct Procedure Yes Yes -Procedure Performed Yes Yes -Type of Procedure Debridement Debridement -Clinical Debridement Subcutaneous Subcutaneous -Post Debridement Size (cm) - Length 0.5 0.9 -Post Debridement Size (cm) - Width 0.5 0.7 -Post Debridement Size (cm) - Depth 0.3 0.3 -Total Square Cm 0.25 0.63 -Wound/Ulcer Outcome Not Healed Not Healed -Ulcer Cleansing Rinsed/ Rinsed/ Irrigated with Irrigated with Saline Saline -Foul Odor after Cleansing No No -Bioengineered Tissue No No -Bleeding Controlled with Pressure Pressure -Offloading Yes Yes -Type of Offloading Surgical Shoe Camwalker -Treatment Response Procedure Procedure Tolerated Well Tolerated Well Pain Scale: 0-10 Numeric Is Patient Pain Free? Yes Yes Wound debrided: plantar foot Laterality: Left Type of Debridement: Excisional debridement Anesthesia Used: 5% Lidocaine Gel Depth: in the subcutaneous layer Percentage of wound debrided: 100 Instrument Used: #15 blade Tissue Removed: fibrous, devitalized subcutaneous, biofilm, slough Severity: Fat Layer Exposed Amount of bleeding with debridement: Mild Bleeding Controlled with: Pressure Patient tolerated procedure well Assessment/Plan Active Problems Obesity (Chronic) Idiopathic neuropathy (Chronic) Non-pressure chronic ulcer of other part of left foot with fat layer exposed (Chronic) Puncture wound of foot, left, complicated (Chronic) Difficulty in walking, not elsewhere classified (Chronic) Assessment: Ulcer left foot with fat layer exposed. idiopathic neuropathy. obesity. Nonpressure traumatic open wound infected to left plantar foot Plan: The patient was seen and examined at the wound center today and was updated on the plan of care. A subcutaneous debridement was performed today. The patient tolerated the procedure well. The patients wound care will consist of: Utilizing daily dressing of Aquacel silver and utilizing offloading postop shoe to reduce pressure. Wound cultures were collected previously by his prior wound healing center provider and showed anaerobic cocci, staph, strep B, and E. coli and patient completed Flagyl and Cipro. He was reassured no local signs of infection noted today and I do not recommend antibiotics. his previous diagnostic data with lab work was reviewed. Patient educated on the importance of diet on wound healing and instructed to increase protein and vitamin C intake. Kyle nutritional supplementation was provided to optimize healing he is advised on safe for proper use. I recommend improved offloading with cam walker boot. He relates he cannot take time off for but now has to wear steel shoes. I recommend he brings his steel toe shoes and second modified offloading pocket into the devices. I recommend he proceed forward with a cam walker boot to reduce his edema and offload his ulcer with dual density Plastizote liners. I recommend that he tries to wear this at work with the toe and altered work functions however if this is not possible it is all imperative for him to at least wear the boot and offload the ulcer while he is not at work. A prescription referral was provided for him to get fitted and obtain this at the foot and ankle center. Given his delayed healing status and prior history of multiple lower extremity ulcers I recommend vascular work-up for arterial venous disease. Orders were provided for noninvasive arterial studies and venous Doppler including reflux and examination. He relates he is scheduled to get this at the end of next week. His diagnostic data from December was also previously reviewed. Patient will follow up at wound healing center in one week or sooner if needed. I answered all his questions. He relates he is no longer able to follow-up on Thursday due to some family and work obligations. He prefers to follow-up on and transfer to another provider will be arranged.
[2019-02-23 16:41] VITALS: BP 129/76; PULSE 65; RESP 18; TEMP 36.9; BMI 36.5
--- NOTE | 2019-02-23 16:59 | PCM.WC.PN ---
(1) Non-pressure chronic ulcer of other part of left foot with fat layer exposed Status: Chronic Current Visit: Yes Code(s): L97.522 - Non-pressure chronic ulcer of other part of left foot with fat layer exposed (2) Other specified peripheral vascular diseases Status: Suspected Current Visit: Yes Code(s): I73.89 - Other specified peripheral vascular diseases (3) Venous insufficiency (chronic) (peripheral) Status: Suspected Current Visit: Yes Code(s): I87.2 - Venous insufficiency (chronic) (peripheral) (4) Malnutrition Status: Suspected Current Visit: Yes Code(s): E46 - Unspecified protein-calorie malnutrition (5) Puncture wound of foot, left, complicated Status: Chronic Current Visit: Yes Qualifiers: Encounter type: sequela Qualified Code(s): S91.332S - Puncture wound without foreign body, left foot, sequela Code(s): S91.332A - Puncture wound without foreign body, left foot, initial encounter (6) Difficulty in walking, not elsewhere classified Status: Chronic Current Visit: Yes Code(s): R26.2 - Difficulty in walking, not elsewhere classified (7) Delayed wound healing Status: Chronic Current Visit: No Code(s): T14.8XXD - Other injury of unspecified body region, subsequent encounter (8) Malnutrition Status: Suspected Current Visit: Yes Qualifiers: Code(s): E46 - Unspecified protein-calorie malnutrition (9) Obesity Status: Chronic Current Visit: Yes Code(s): E66.9 - Obesity, unspecified (10) Idiopathic neuropathy Status: Chronic Current Visit: Yes Code(s): G60.9 - Hereditary and idiopathic neuropathy, unspecified Type of Wound Date of Service: 02/23/19 Chief Complaint: wound left plantar foot History of Wound: 63-year-old white male months ago was taking a tarp down at his daughter's house and one of the [place] got into his shoe and he was walking on it. With his peripheral neuropathy he did not realize that he had gone through his shoe and into his foot. He has been changing his dressing with Aquacel ag and tries to keep pressure off it by walking on his heel. He admits he wears steel toe shoes at work. He denies odor or redness. He did not obtain the cam walker yet as ordered. He denies fever, chill, nausea, vomiting, redness, odor streaking to the foot. He is seeking short term disability at this time due to difficulty offloading while at work. Progress of Wound: improving - Physical Exam Vital Signs Temp Pulse Resp BP 98.4 F 65 18 129/76 H 02/23/19 16:41 02/23/19 16:41 02/23/19 16:41 02/23/19 16:41 General: Alert, Oriented x3, Cooperative, No apparent distress HEENT: Atraumatic Extremities: No cyanosis, Capillary Refill Less than 3 Seconds, No Calf Tenderness - Negative Oral and Alvarez, Diminished Peripheral Pulses, Edema Skin: Ulcer/ Wound - bilateral no purulence, erythema, streaking, odor, infection. Continued callus buildup peripheral. The adjacent peripheral skin is hairless and atrophic. There is no probing to bone or joint or deep necrosis. Wound Measurements and Assessment WC - Nurse 1 - General Ulcer Measurement Start: 02/09/19 17:01 Freq: Status: Active Protocol: Activity Type Activity Date Activity User E-Sign Co-Sign Detail Recorded Client Recorded Date Recorded By Document 02/23/19 16:41 [id number] 02/23/19 16:43 RB 02/23/19 16:41 Wound Center Nurse 1 [Ulcer Assessment] #4 L plantar -Combined with other wound No -Current Size (cm) - Length 0.6 -Current Size (cm) - Width 0.4 -Current Size (cm) - Depth 0.4 -Total Square Cm 0.24 -Photo Taken No -Epithelialization None Present -Tunneling No -Undermining/Tunneling No -Circular Undermining Yes -Exudate Amt Small -Exudate Type Serosanguineous -Wound Margin Flat & Intact -Granulation Amt Large (67-100%) -Granulation Quality Red -Slough/Fibrin Yes -Necrosis Amt Small (1-33%) -Necrotic Tissue Type Adherent Slough -Structure Exposed N/A -Texture (Bernice-wound Skin Appearance) Assessed,Callus -Moisture (Bernice-wound Skin Appearance Assessed,Dry/ ) Scaly -Color (Bernice-wound Skin Appearance) Assessed -Temperature (Bernice-wound Skin No Abnormality Appearance) (Pt Warm) -Tenderness on Palpation (Bernice-wound No Skin Appearance) -Ulcer Cleansing Rinsed/ Irrigated with Saline -Foul Odor after Cleansing No -Anesthetic Used 4% Lidocaine Solution [Edema Assessment] -Lower Limb Edema Present NA - Nurse 2 - General Ulcer CM Notes Start: 02/09/19 17:01 Freq: Status: Active Protocol: Activity Type Activity Date Activity User E-Sign Co-Sign Detail Recorded Client Recorded Date Recorded By Document 02/23/19 16:53 [id number] 02/23/19 16:54 02/23/19 16:53 Wound Center Nurse 2 [Procedure/Treatment] #4 L plantar -Time 16:53 -Correct Patient Yes -Correct Side, Site, Position Yes -Correct Procedure Yes -Procedure Performed Yes -Type of Procedure Debridement -Clinical Debridement Subcutaneous -Post Debridement Size (cm) - Length 1.4 -Post Debridement Size (cm) - Width 1.0 -Post Debridement Size (cm) - Depth 0.4 -Total Square Cm 1.40 -Wound/Ulcer Outcome Not Healed -Ulcer Cleansing Rinsed/ Irrigated with Saline -Foul Odor after Cleansing No -Bioengineered Tissue No -Bleeding Controlled with NA -Offloading No -Treatment Response Procedure Tolerated Well [See Physician Procedure note for Specifics] Pain Scale: 0-10 Numeric [Pain] -Is Patient Pain Free? Yes Musculoskeletal: No Tenderness to Palpation of Joints or Extremities, Muscle Wasting, - - Dorsal contracture of lesser digits with prominent metatarsal head Neurological: - - Lack of normal epicritic sensation consistent with neuropathy status Psych/Mental Status: Normal Affect, Appropriate Debridement Note Post-Debridement Measurements/Treatment - Nurse 2 - General Ulcer CM Notes Start: 02/09/19 17:01 Freq: Status: Active Protocol: Activity Type Activity Date Activity User E-Sign Co-Sign Detail Recorded Client Recorded Date Recorded By Document 02/09/19 17:11 AN [id number] 02/09/19 17:15 AN Document 02/16/19 16:58 [id number] 02/16/19 17:00 Document 02/23/19 16:53 [id number] 02/23/19 16:54 02/09/19 02/16/19 02/23/19 17:11 16:58 16:53 Wound Center Nurse 2 #4 L plantar -Time 17:11 16:59 16:53 -Correct Patient Yes Yes Yes -Correct Side, Site, Position Yes Yes Yes -Correct Procedure Yes Yes Yes -Procedure Performed Yes Yes Yes -Type of Procedure Debridement Debridement Debridement -Clinical Debridement Subcutaneous Subcutaneous Subcutaneous -Post Debridement Size (cm) - Length 0.5 0.9 1.4 -Post Debridement Size (cm) - Width 0.5 0.7 1.0 -Post Debridement Size (cm) - Depth 0.3 0.3 0.4 -Total Square Cm 0.25 0.63 1.40 -Wound/Ulcer Outcome Not Healed Not Healed Not Healed -Ulcer Cleansing Rinsed/ Rinsed/ Rinsed/ Irrigated with Irrigated with Irrigated with Saline Saline Saline -Foul Odor after Cleansing No No No -Bioengineered Tissue No No No -Bleeding Controlled with Pressure Pressure NA -Offloading Yes Yes No -Type of Offloading Surgical Shoe Camwalker -Treatment Response Procedure Procedure Procedure Tolerated Well Tolerated Well Tolerated Well Pain Scale: 0-10 Numeric Is Patient Pain Free? Yes Yes Yes Wound debrided: plantar foot Laterality: Left Type of Debridement: Excisional debridement Anesthesia Used: 5% Lidocaine Gel Depth: in the subcutaneous layer Percentage of wound debrided: 100 Instrument Used: #15 blade Tissue Removed: fibrous, devitalized subcutaneous, biofilm, slough Severity: Fat Layer Exposed Amount of bleeding with debridement: Mild Bleeding Controlled with: Pressure Patient tolerated procedure well Assessment/Plan Active Problems Obesity (Chronic) Idiopathic neuropathy (Chronic) Non-pressure chronic ulcer of other part of left foot with fat layer exposed (Chronic) Puncture wound of foot, left, complicated (Chronic) Difficulty in walking, not elsewhere classified (Chronic) Assessment: Ulcer left foot with fat layer exposed. idiopathic neuropathy. obesity. Nonpressure traumatic open wound infected to left plantar foot Plan: The patient was seen and examined at the wound center today and was updated on the plan of care. A subcutaneous debridement was performed today. The patient tolerated the procedure well. The patients wound care will consist of: Utilizing daily dressing of Aquacel silver and utilizing offloading postop shoe to reduce pressure. To follow-up at the foot and ankle center for CAM Walker fitting with additional dual density Plastizote liners with offloading pocket for the ulcer site. He started this process. He was called back by the foot and ankle center and did not answer his phone. I encouraged him to complete setting this up. Wound cultures were collected previously by his prior wound healing center provider and showed anaerobic cocci, staph, strep B, and E. coli and patient completed Flagyl and Cipro. He was reassured no local signs of infection noted today and I do not recommend antibiotics. his previous diagnostic data with lab work was reviewed. Patient educated on the importance of diet on wound healing and instructed to increase protein and vitamin C intake. Kyle nutritional supplementation was provided to optimize healing he is advised on safe for proper use. Given his delayed healing status and prior history of multiple lower extremity ulcers I recommend vascular work-up for arterial venous disease. Orders were provided for noninvasive arterial studies and venous Doppler including reflux and examination. He did not obtain this yet. His diagnostic data from December was also previously reviewed. Patient will follow up at wound healing center in one week or sooner if needed. I answered all his questions. He is trying to follow-up on Wednesdays and is seeking short-term disability options. A work note was provided today.
--- NOTE | 2019-02-25 12:54 | VDLE_ITS ---
Reason For Study: Insufficiency RIGHT LEFT CFV is compressible, spontaneous, phasic, CFV is compressible, spontaneous, phasic, competent and demonstrates normal competent, and demonstrates normal augmentation. augmentation. FV is compressible, spontaneous, phasic, FV is compressible, spontaneous, phasic, competent and demonstrates normal competent and demonstrates normal augmentation. augmentation. POP V is compressible, spontaneous, phasic, POP V is compressible, spontaneous, phasic, competent and demonstrates normal competent and demonstrates normal augmentation. augmentation. T/P Trunk is compressible. T/P Trunk is compressible. PTV is compressible. PTV is compressible. RT PerV is compressible. LT PerV is compressible. SFJ is competent and measures 0.69 x 0.80 cm. SFJ is competent and measures 0.73 x 0.72 cm. GSV proximal thigh measures 0.49 x 0.60 cm. GSV proximal thigh measures 0.46 x 0.43 cm. GSV at knee measures 0.47 x 0.52 cm. GSV at knee measures 0.47 x 0.48 cm. GSV is competent throughout. GSV is competent throughout. SSV at junction is competent and measures SSV at junction is competent and measures 0.26 x 0.28 cm. 0.40 x 0.44 cm. Interpretation Summary Deep veins of the lower extremities are bilaterally patent and compressible segmentally. There is no evidence of deep vein thrombosis on either side. Valvular competence appears intact within the proximal deep venous systems bilaterally. The great saphenous veins appear bilaterally patent and compressible segmentally. Sapheno-femoral junctions are bilaterally competent . Valvular competence appears to be intact segmentally within the great saphenous veins bilaterally. Small saphenous veins are patent and competent bilaterally. Ordering Physician: Darshana Avila Referring Physician: Andie Tran Performed By: Megan Arnold RVT
--- NOTE | 2019-02-25 12:54 | ART_ITS ---
Reason For Study: PVD Procedure A bilateral lower extremity continuous wave Doppler with analog waveform analysis,segmental pressures,and ankle brachial indexes without exercise. Left Segmental Pressures Left brachial= 131mmHg. Left posterior tibial artery = 164mmHg. Left dorsalis pedis artery = 140mmHg. Left digit = 131 mmHg. The left dorsalis pedis waveforms are triphasic. The left posterior tibial artery waveforms are triphasic. Right Segmental Pressures Right brachial= 133mmHg. Right posterior tibial artery = 162mmHg. Right dorsalis pedis artery = 153mmHg. Right digit = 133 mmHg. The right dorsalis pedis waveforms are triphasic. The right posterior tibial artery waveforms are triphasic. Indices The right ankle brachial index by the dorsalis pedis is 1.15. The right ankle brachial index by the posterior tibial artery is 1.22. The right digital-brachial index is 1.00. The left ankle brachial index by the dorsalis pedis is 1.05. The left ankle brachial index by the posterior tibial artery is 1.23. The left digital-brachial index is 0.98. Interpretation Summary Triphasic Doppler waveforms are noted at ankle level bilaterally. Pulse-volume recordings are satisfactory bilaterally. Resting ankle-brachial indices are normal bilaterally. Digital-brachial indices are normal bilaterally. There is no evidence of significant arterial occlusive disease in the lower extremities bilaterally. Ordering Physician: Darshana Avila Referring Physician: Andie Tran Performed By: Megan Arnold RVT
[2019-03-02 10:07] VITALS: BP 142/81; PULSE 59; RESP 18; TEMP 36.9; BMI 36.5
--- NOTE | 2019-03-02 19:09 | PN.PCM_ITS ---
(1) Non-pressure chronic ulcer of other part of left foot with fat layer exposed Status: Chronic Current Visit: Yes Code(s): L97.522 - Non-pressure chronic ulcer of other part of left foot with fat layer exposed (2) Other specified peripheral vascular diseases Status: Suspected Current Visit: Yes Code(s): I73.89 - Other specified peripheral vascular diseases (3) Venous insufficiency (chronic) (peripheral) Status: Suspected Current Visit: Yes Code(s): I87.2 - Venous insufficiency (chronic) (peripheral) (4) Malnutrition Status: Suspected Current Visit: Yes Code(s): E46 - Unspecified protein- calorie malnutrition (5) Puncture wound of foot, left, complicated Status: Chronic Current Visit: Yes Qualifiers: Encounter type: sequela Qualified Code(s): S91.332S - Puncture wound without foreign body, left foot, sequela Code(s): S91.332A - Puncture wound without foreign body, left foot, initial encounter (6) Difficulty in walking, not elsewhere classified Status: Chronic Current Visit: Yes Code(s): R26.2 - Difficulty in walking, not elsewhere classified (7) Delayed wound healing Status: Chronic Current Visit: No Code(s): T14.8XXD - Other injury of unspecified body region, subsequent encounter (8) Malnutrition Status: Suspected Current Visit: Yes Qualifiers: Code(s): E46 - Unspecified protein-calorie malnutrition (9) Obesity Status: Chronic Current Visit: Yes Code(s): E66.9 - Obesity, unspecified (10) Idiopathic neuropathy Status: Chronic Current Visit: Yes Code(s): G60.9 - Hereditary and idiopathic neuropathy, unspecified Type of Wound Date of Service: 03/02/19 Chief Complaint: wound left plantar foot History of Wound: 63-year-old white male months ago was taking a tarp down at his daughter's house and one of the [place] got into his shoe and he was walking on it. With his peripheral neuropathy he did not realize that he had gone through his shoe and into his foot. He has been changing his dressing with Aquacel ag and tries to keep pressure off it by walking on his heel. He denies odor or redness. He did not obtain the cam walker yet as ordered. He plans to obtain this later today. He denies fever, chill, nausea, vomiting, redness, odor streaking to the foot. He is seeking short term disability at this time due to difficulty offloading while at work. Progress of Wound: improving - Physical Exam Vital Signs Temp Pulse Resp BP 98.4 F 59 L 18 142/81 H 03/02/19 10:07 03/02/19 10:07 03/02/19 10:07 03/02/19 10:07 General: Alert, Oriented x3, Cooperative, No apparent distress HEENT: Atraumatic Extremities: No cyanosis, Capillary Refill Less than 3 Seconds, No Calf Tenderness, Diminished Peripheral Pulses, Edema Skin: Ulcer/ Wound - No purulence, erythema, streaking, odor, infection. Improved granulation tissue is noted and there is decreased depth. Peripheral epithelialization of the ulcer site is also noted. The peripheral skin is hairless and atrophic Wound Measurements and Assessment WC - Nurse 1 - General Ulcer Measurement Start: 02/09/19 17:01 Freq: Status: Active Protocol: Activity Type Activity Date Activity User E-Sign Co-Sign Detail Recorded Client Recorded Date Recorded By Document 03/02/19 10:07 LAN [id number] 03/02/19 10:13 AN 03/02/19 10:07 Wound Center Nurse 1 [Ulcer Assessment] #4 L plantar -Combined with other wound No -Current Size (cm) - Length 0.5 -Current Size (cm) - Width 0.3 -Current Size (cm) - Depth 0.4 -Total Square Cm 0.15 -Photo Taken No -Epithelialization None Present -Tunneling No -Undermining/Tunneling No -Circular Undermining No -Exudate Amt Small -Exudate Type Serosanguineous -Wound Margin Indistinct, Non -Visible -Granulation Amt Small (1-33%) -Granulation Quality [place] -Slough/Fibrin Yes -Necrosis Amt Large (67-100%) -Necrotic Tissue Type Adherent Slough -Structure Exposed Fat Layer Exposed -Texture (Bernice-wound Skin Appearance) Assessed,Callus -Moisture (Bernice-wound Skin Appearance Assessed,Dry/ ) Scaly -Color (Bernice-wound Skin Appearance) Assessed -Temperature (Bernice-wound Skin No Abnormality Appearance) (Pt Warm) -Tenderness on Palpation (Bernice-wound No Skin Appearance) -Ulcer Cleansing Rinsed/ Irrigated with Saline -Foul Odor after Cleansing No -Anesthetic Used 4% Lidocaine Solution [Edema Assessment] -Lower Limb Edema Present No WC - Nurse 2 - General Ulcer CM Notes Start: 02/09/19 17:01 Freq: Status: Active Protocol: Activity Type Activity Date Activity User E-Sign Co-Sign Detail Recorded Client Recorded Date Recorded By Document 03/02/19 10:53 AN [id number] 03/02/19 10:55 AN 03/02/19 10:53 Wound Center Nurse 2 [Procedure/Treatment] #4 L plantar -Time 10:54 -Correct Patient Yes -Correct Side, Site, Position Yes -Correct Procedure Yes -Procedure Performed Yes -Type of Procedure Debridement -Clinical Debridement Subcutaneous -Post Debridement Size (cm) - Length 0.6 -Post Debridement Size (cm) - Width 0.4 -Post Debridement Size (cm) - Depth 0.4 -Total Square Cm 0.24 -Wound/Ulcer Outcome Not Healed -Ulcer Cleansing Rinsed/ Irrigated with Saline -Foul Odor after Cleansing No -Bioengineered Tissue No -Bleeding Controlled with Pressure -Offloading Yes -Type of Offloading Camwalker -Treatment Response Procedure Tolerated Well [See Physician Procedure note for Specifics] Pain Scale: 0-10 Numeric [Pain] -Is Patient Pain Free? Yes Musculoskeletal: No Tenderness to Palpation of Joints or Extremities, Muscle Wasting, - - Dorsal contraction of lesser toes with prominent metatarsal head Neurological: - - Lack of normal epicritic sensation light touch is consistent with neuropathy Psych/Mental Status: Normal Affect, Appropriate Debridement Note Post-Debridement Measurements/Treatment WC - Nurse 2 - General Ulcer CM Notes Start: 02/09/19 17:01 Freq: Status: Active Protocol: Activity Type Activity Date Activity User E-Sign Co-Sign Detail Recorded Client Recorded Date Recorded By Document 02/09/19 17:11 AN [id number] 02/09/19 17:15 AN Document 02/16/19 16:58 [id number] 02/16/19 17:00 Document 02/23/19 16:53 [id number] 02/23/19 16:54 Document 03/02/19 10:53 AN [id number] 03/02/19 10:55 AN 02/09/19 02/16/19 02/23/19 17:11 16:58 16:53 Wound Center Nurse 2 #4 L plantar -Time 17:11 16:59 16:53 -Correct Patient Yes Yes Yes -Correct Side, Site, Position Yes Yes Yes -Correct Procedure Yes Yes Yes -Procedure Performed Yes Yes Yes -Type of Procedure Debridement Debridement Debridement -Clinical Debridement Subcutaneous Subcutaneous Subcutaneous -Post Debridement Size (cm) - Length 0.5 0.9 1.4 -Post Debridement Size (cm) - Width 0.5 0.7 1.0 -Post Debridement Size (cm) - Depth 0.3 0.3 0.4 -Total Square Cm 0.25 0.63 1.40 -Wound/Ulcer Outcome Not Healed Not Healed Not Healed -Ulcer Cleansing Rinsed/ Rinsed/ Rinsed/ Irrigated with Irrigated with Irrigated with Saline Saline Saline -Foul Odor after Cleansing No No No -Bioengineered Tissue No No No -Bleeding Controlled with Pressure Pressure NA -Offloading Yes Yes No -Type of Offloading Surgical Shoe Camwalker -Treatment Response Procedure Procedure Procedure Tolerated Well Tolerated Well Tolerated Well Pain Scale: 0-10 Numeric Is Patient Pain Free? Yes Yes Yes 03/02/19 10:53 Wound Center Nurse 2 #4 L plantar -Time 10:54 -Correct Patient Yes -Correct Side, Site, Position Yes -Correct Procedure Yes -Procedure Performed Yes -Type of Procedure Debridement -Clinical Debridement Subcutaneous -Post Debridement Size (cm) - Length 0.6 -Post Debridement Size (cm) - Width 0.4 -Post Debridement Size (cm) - Depth 0.4 -Total Square Cm 0.24 -Wound/Ulcer Outcome Not Healed -Ulcer Cleansing Rinsed/ Irrigated with Saline -Foul Odor after Cleansing No -Bioengineered Tissue No -Bleeding Controlled with Pressure -Offloading Yes -Type of Offloading Camwalker -Treatment Response Procedure Tolerated Well Pain Scale: 0-10 Numeric Is Patient Pain Free? Yes Wound debrided: plantar foot Laterality: Left Type of Debridement: Excisional debridement Depth: in the subcutaneous layer Percentage of wound debrided: 100 Instrument Used: #15 blade Tissue Removed: fibrous, devitalized subcutaneous, biofilm, slough Severity: Fat Layer Exposed Amount of bleeding with debridement: Mild Bleeding Controlled with: Pressure Patient tolerated procedure well Assessment/Plan Active Problems Obesity (Chronic) Idiopathic neuropathy (Chronic) Non-pressure chronic ulcer of other part of left foot with fat layer exposed (Chronic) Puncture wound of foot, left, complicated (Chronic) Difficulty in walking, not elsewhere classified (Chronic) Assessment: Ulcer left foot with fat layer exposed. idiopathic neuropathy. obesity. Nonpressure traumatic open wound infected to left plantar foot Plan: The patient was seen and examined at the wound center today and was updated on the plan of care. A subcutaneous debridement was performed today. The patient tolerated the procedure well. The patients wound care will consist of: Utilizing daily dressing of Aquacel silver and utilizing offloading postop shoe to reduce pressure. To follow-up at the foot and ankle center for CAM Walker fitting with additional dual density Plastizote liners with offloading pocket for the ulcer site. He is scheduled to get fitted for this later this afternoon. Wound cultures were collected previously by his prior wound healing center provider and showed anaerobic cocci, staph, strep B, and E. coli and patient completed Flagyl and Cipro. He was reassured no local signs of infection noted today and I do not recommend antibiotics. his previous diagnostic data with lab work was reviewed. Patient educated on the importance of diet on wound healing and instructed to increase protein and vitamin C intake. Kyle nutritional supplementation was provided to optimize healing he is advised on safe for proper use. Given his delayed healing status and prior history of multiple lower extremity ulcers I recommend vascular work-up for arterial venous disease. Orders were provided for noninvasive arterial studies and venous Doppler including reflux and examination. The noninvasive vascular studies demonstrate adequate arterial perfusion. The PATEL in the right is 1.15 and 1.22 and on the left is 1.05 and 1.23. The digital brachial index is 1 on the right and 0.98 on the left and there is bilateral triphasic flow. Venous reflux exam results were also reviewed and there is no evidence of deep venous thrombosis or valvular incompetence. To continue with compression dressing. His diagnostic data from December was also previously reviewed. Patient will follow up at wound healing center in one week or sooner if needed. I answered all his questions. He is trying to follow-up on Wednesdays and is seeking short-term disability options. A work note was provided again today and his paperwork will be completed.
== END 2019-03-07 23:59 ==
LOC: WC 09:30
PROVIDERS: Family Provider Nurse Practitioner Primary Care; PCP Nurse Practitioner Primary Care; Referring Provider Nurse Practitioner; Visit Provider Podiatrist
DX: S91.332A Puncture wound without foreign body, left foot, initial encounter (principal); W26.8XXA Contact with other sharp object(s), not elsewhere classified, initial encounter; I73.89 Other specified peripheral vascular diseases; R26.2 Difficulty in walking, not elsewhere classified; E66.9 Obesity, unspecified; G60.9 Hereditary and idiopathic neuropathy, unspecified; R60.0 Localized edema; I87.2 Venous insufficiency (chronic) (peripheral)
CPT/HCPCS: 11042; 93923; 93970

== ENCOUNTER 2019-03-23 10:45 | Outpatient (RCR) | payer BC, SELFPAY ==
[2019-03-08 00:49] VITALS: BP 142/81; PULSE 59; RESP 18; TEMP 36.9
[2019-03-09 10:40] VITALS: BP 129/91; PULSE 65; RESP 16; TEMP 37.3; BMI 36.5
--- NOTE | 2019-03-09 12:08 | PN.PCM_ITS ---
(1) Non-pressure chronic ulcer of other part of left foot with fat layer exposed Status: Chronic Code(s): L97.522 - Non-pressure chronic ulcer of other part of left foot with fat layer exposed (2) Delayed wound healing Status: Chronic Code(s): T14.8XXD - Other injury of unspecified body region, subsequent encounter (3) Malnutrition Status: Suspected Qualifiers: Code(s): E46 - Unspecified protein-calorie malnutrition (4) Idiopathic neuropathy Status: Chronic Code(s): G60.9 - Hereditary and idiopathic neuropathy, unspecified Type of Wound Date of Service: 03/09/19 Chief Complaint: wound left plantar foot History of Wound: 63-year-old white male months ago was taking a tarp down at his daughter's house and one of the [place] got into his shoe and he was walking on it. With his peripheral neuropathy he did not realize that he had gone through his shoe and into his foot. He has been changing his dressing with Aquacel ag and tries to keep pressure off it by walking on his heel. He denies odor or redness. He did not obtain the cam walker yet as ordered. He plans to obtain this later today. He denies fever, chill, nausea, vomiting, redness, odor streaking to the foot. He has been wearing a cam walker offloading boot as advised. Progress of Wound: improving - Physical Exam Vital Signs Temp Pulse Resp BP 99.1 F 65 16 129/91 H 03/09/19 10:40 03/09/19 10:40 03/09/19 10:40 03/09/19 10:40 General: Alert, Oriented x3, Cooperative, No apparent distress Extremities: No cyanosis, Capillary Refill Less than 3 Seconds, No Calf Tenderness - Negative Oral and Alvarez sign left, Diminished Peripheral Pulses, Edema - Mild Skin: Ulcer/ Wound - No purulence, erythema, streaking, odor, infection. Peripheral skin is hairless and atrophic. There is no probing to bone noted. Wound Measurements and Assessment WC - Nurse 1 - General Ulcer Measurement Start: 03/09/19 10:40 Freq: Status: Active Protocol: Activity Type Activity Date Activity User E-Sign Co-Sign Detail Recorded Client Recorded Date Recorded By Document 03/09/19 10:40 [id number] 03/09/19 10:42 CS 03/09/19 10:40 Wound Center Nurse 1 [Ulcer Assessment] #4 L plantar -Combined with other wound No -Current Size (cm) - Length 0.3 -Current Size (cm) - Width 0.3 -Current Size (cm) - Depth 0.3 -Total Square Cm 0.09 -Photo Taken No -Epithelialization None Present -Tunneling No -Undermining/Tunneling No -Circular Undermining No -Exudate Amt Small -Exudate Type Serosanguineous -Wound Margin Distinct, Outline Attached -Granulation Amt Medium (34-66%) -Granulation Quality [place] -Slough/Fibrin Yes -Necrosis Amt None Present (0 %) -Necrotic Tissue Type Adherent Slough -Structure Exposed None/Limited to Skin Breakdown -Texture (Bernice-wound Skin Appearance) Callus -Moisture (Bernice-wound Skin Appearance No Abnormality, ) Assessed -Color (Bernice-wound Skin Appearance) No Abnormality, Assessed -Temperature (Bernice-wound Skin No Abnormality Appearance) (Pt Warm) -Tenderness on Palpation (Bernice-wound No Skin Appearance) -Ulcer Cleansing Rinsed/ Irrigated with Saline -Foul Odor after Cleansing No -Anesthetic Used 5% Lidocaine Gel [Edema Assessment] -Lower Limb Edema Present NA Musculoskeletal: No Tenderness to Palpation of Joints or Extremities, Muscle Wasting, - - Dorsal contraction of lesser digits and prominent metatarsal heads are noted Neurological: - - Lack of normal epicritic sensation light touch is consistent with neuropathy status Psych/Mental Status: Normal Affect, Appropriate Debridement Note Wound debrided: plantar lateral foot Laterality: Left Type of Debridement: Excisional debridement Anesthesia Used: 5% Lidocaine Gel Depth: in the subcutaneous layer Percentage of wound debrided: 100 Instrument Used: #15 blade Tissue Removed: fibrous, devitalized subcutaneous, biofilm, slough, callous Severity: Fat Layer Exposed Amount of bleeding with debridement: Mild Bleeding Controlled with: Pressure Patient tolerated procedure well Assessment/Plan Assessment: Ulcer left foot with fat layer exposed. idiopathic neuropathy. obesity. Nonpressure traumatic open wound infected to left plantar foot Plan: The patient was seen and examined at the wound center today and was updated on the plan of care. A subcutaneous debridement was performed today. The patient tolerated the procedure well. The patients wound care will consist of: Utilizing daily dressing of Aquacel silver and utilizing offloading postop shoe to reduce pressure. He obtain a cam walker with offloading pocket; to continue with this device to reduce pressure at the ulcer site. Wound cultures were collected previously by his prior wound healing center provider and showed anaerobic cocci, staph, strep B, and E. coli and patient completed Flagyl and Cipro. He was reassured no local signs of infection noted today and I do not recommend antibiotics. his previous diagnostic data with lab work was reviewed. Patient educated on the importance of diet on wound healing and instructed to increase protein and vitamin C intake. Kyle nutritional supplementation was provided to optimize healing he is advised on safe for proper use. Given his delayed healing status and prior history of multiple lower extremity ulcers I recommend vascular work-up for arterial venous disease. Orders were provided for noninvasive arterial studies and venous Doppler including reflux and examination. The noninvasive vascular studies demonstrate adequate arterial perfusion. The PATEL in the right is 1.15 and 1.22 and on the left is 1.05 and 1.23. The digital brachial index is 1 on the right and 0.98 on the left and there is bilateral triphasic flow. Venous reflux exam results were also reviewed and there is no evidence of deep venous thrombosis or valvular incompetence. To continue with compression dressing. His diagnostic data from December was also previously reviewed. Patient will follow up at wound healing center in one week or sooner if needed. I answered all his questions.
[2019-03-16 10:50] VITALS: BP 139/81; PULSE 56; RESP 18; TEMP 37.1; BMI 36.5
--- NOTE | 2019-03-16 13:04 | PN.PCM_ITS ---
(1) Non-pressure chronic ulcer of other part of left foot with fat layer exposed Status: Chronic Current Visit: Yes Code(s): L97.522 - Non-pressure chronic ulcer of other part of left foot with fat layer exposed (2) Delayed wound healing Status: Chronic Current Visit: Yes Code(s): T14.8XXD - Other injury of unspecified body region, subsequent encounter (3) Malnutrition Status: Suspected Current Visit: Yes Qualifiers: Code(s): E46 - Unspecified protein-calorie malnutrition (4) Idiopathic neuropathy Status: Chronic Current Visit: Yes Code(s): G60.9 - Hereditary and idiopathic neuropathy, unspecified Type of Wound Date of Service: 03/16/19 Chief Complaint: wound left plantar foot History of Wound: 63-year-old white male months ago was taking a tarp down at his daughter's house and one of the [place] got into his shoe and he was walking on it. With his peripheral neuropathy he did not realize that he had gone through his shoe and into his foot. He has been changing his dressing with Aquacel ag and tries to keep pressure off it by walking on his heel. He denies odor or redness. He did not obtain the cam walker yet as ordered. He plans to obtain this later today. He denies fever, chill, nausea, vomiting, redness, odor streaking to the foot. He has been wearing a cam walker offloading boot as advised. He has been taking him off work to facilitate better healing. Progress of Wound: improving - Physical Exam Vital Signs Temp Pulse Resp BP 98.7 F 56 L 18 139/81 H 03/16/19 10:50 03/16/19 10:50 03/16/19 10:50 03/16/19 10:50 General: Alert, Oriented x3, Cooperative, No apparent distress HEENT: Atraumatic Extremities: No cyanosis, Capillary Refill Less than 3 Seconds, No Calf Tenderness, Diminished Peripheral Pulses, Edema Skin: Ulcer/ Wound - No purulence, erythema, string, odor, infection. The ulcer site is significantly decreased. Wound Measurements and Assessment WC - Nurse 1 - General Ulcer Measurement Start: 03/09/19 10:40 Freq: Status: Active Protocol: Activity Type Activity Date Activity User E-Sign Co-Sign Detail Recorded Client Recorded Date Recorded By Document 03/16/19 10:50 [id number] 03/16/19 10:56 03/16/19 10:50 Wound Center Nurse 1 [Ulcer Assessment] #4 L plantar -Combined with other wound No -Current Size (cm) - Length 0.2 -Current Size (cm) - Width 0.2 -Current Size (cm) - Depth 0.3 -Total Square Cm 0.04 -Photo Taken Yes -Epithelialization Large 67-100% -Tunneling No -Undermining/Tunneling No -Circular Undermining No -Exudate Amt Small -Exudate Type Serosanguineous -Wound Margin Indistinct, Non -Visible -Granulation Amt Medium (34-66%) -Granulation Quality Red -Slough/Fibrin Yes -Necrosis Amt Small (1-33%) -Necrotic Tissue Type Adherent Slough -Structure Exposed N/A -Texture (Bernice-wound Skin Appearance) Assessed,Callus -Color (Bernice-wound Skin Appearance) Assessed -Temperature (Bernice-wound Skin No Abnormality Appearance) (Pt Warm) -Tenderness on Palpation (Bernice-wound No Skin Appearance) -Ulcer Cleansing Rinsed/ Irrigated with Saline -Foul Odor after Cleansing No -Anesthetic Used 5% Lidocaine Gel [Edema Assessment] -Lower Limb Edema Present No WC - Nurse 2 - General Ulcer CM Notes Start: 03/09/19 10:40 Freq: Status: Active Protocol: Activity Type Activity Date Activity User E-Sign Co-Sign Detail Recorded Client Recorded Date Recorded By Document 03/16/19 11:20 [id number] 03/16/19 11:21 03/16/19 11:20 Wound Center Nurse 2 [Procedure/Treatment] #4 L plantar -Time 11:20 -Correct Patient Yes -Correct Side, Site, Position Yes -Correct Procedure Yes -Procedure Performed Yes -Type of Procedure Debridement -Clinical Debridement Subcutaneous -Post Debridement Size (cm) - Length 0.3 -Post Debridement Size (cm) - Width 0.3 -Post Debridement Size (cm) - Depth 0.3 -Total Square Cm 0.09 -Wound/Ulcer Outcome Not Healed -Ulcer Cleansing Rinsed/ Irrigated with Saline -Foul Odor after Cleansing No -Bioengineered Tissue No -Bleeding Controlled with Pressure -Offloading Yes -Type of Offloading Camwalker -Treatment Response Procedure Tolerated Well [See Physician Procedure note for Specifics] Pain Scale: 0-10 Numeric [Pain] -Is Patient Pain Free? Yes Musculoskeletal: No Tenderness to Palpation of Joints or Extremities, Muscle Wasting, - - Prominent metatarsal heads Neurological: - - Normal epicritic sensation light touch is consistent with neuropathy Psych/Mental Status: Normal Affect, Appropriate Debridement Note Post-Debridement Measurements/Treatment WC - Nurse 2 - General Ulcer CM Notes Start: 03/09/19 10:40 Freq: Status: Active Protocol: Activity Type Activity Date Activity User E-Sign Co-Sign Detail Recorded Client Recorded Date Recorded By Document 03/09/19 17:57 AN [id number] 03/09/19 17:58 AN Document 03/16/19 11:20 AN [id number] 03/16/19 11:21 AN 03/09/19 03/16/19 17:57 11:20 Wound Center Nurse 2 #4 L plantar -Time 14:00 11:20 -Correct Patient Yes Yes -Correct Side, Site, Position Yes Yes -Correct Procedure Yes Yes -Procedure Performed Yes Yes -Type of Procedure Debridement Debridement -Clinical Debridement Subcutaneous Subcutaneous -Post Debridement Size (cm) - Length 0.5 0.3 -Post Debridement Size (cm) - Width 0.5 0.3 -Post Debridement Size (cm) - Depth 0.3 0.3 -Total Square Cm 0.25 0.09 -Wound/Ulcer Outcome Not Healed Not Healed -Ulcer Cleansing Rinsed/ Rinsed/ Irrigated with Irrigated with Saline Saline -Foul Odor after Cleansing No No -Bioengineered Tissue No No -Bleeding Controlled with Pressure Pressure -Offloading Yes Yes -Type of Offloading Camwalker Camwalker -Treatment Response Procedure Procedure Tolerated Well Tolerated Well Pain Scale: 0-10 Numeric Is Patient Pain Free? Yes Yes Wound debrided: plantar foot Laterality: Left Wound Grade/Stage: grade 1 Type of Debridement: Excisional debridement Anesthesia Used: 5% Lidocaine Gel Depth: in the subcutaneous layer Percentage of wound debrided: 100 Instrument Used: #15 blade Tissue Removed: fibrous, devitalized subcutaneous, biofiom, slough Severity: Fat Layer Exposed Amount of bleeding with debridement: Mild Bleeding Controlled with: Pressure Patient tolerated procedure well Assessment/Plan Active Problems Delayed wound healing (Chronic) Idiopathic neuropathy (Chronic) Non-pressure chronic ulcer of other part of left foot with fat layer exposed (Chronic) Assessment: Ulcer left foot with fat layer exposed. idiopathic neuropathy. obesity. Nonpressure traumatic open wound infected to left plantar foot Plan: The patient was seen and examined at the wound center today and was updated on the plan of care. A subcutaneous debridement was performed today. The patient tolerated the procedure well. The patients wound care will consist of: Utilizing daily dressing of Aquacel silver and utilizing offloading postop shoe to reduce pressure. He obtain a cam walker with offloading pocket; to continue with this device to reduce pressure at the ulcer site. Wound cultures were collected previously by his prior wound healing center provider and showed anaerobic cocci, staph, strep B, and E. coli and patient completed Flagyl and Cipro. He was reassured no local signs of infection noted today and I do not recommend antibiotics. his previous diagnostic data with lab work was reviewed. Patient educated on the importance of diet on wound healing and instructed to increase protein and vitamin C intake. Kyle nutritional supplementation was provided to optimize healing he is advised on safe for proper use. Given his delayed healing status and prior history of multiple lower extremity ulcers I recommend vascular work-up for arterial venous disease. Orders were provided fo r noninvasive arterial studies and venous Doppler including reflux and examination. The noninvasive vascular studies demonstrate adequate arterial perfusion. The PATEL in the right is 1.15 and 1.22 and on the left is 1.05 and 1.23. The digital brachial index is 1 on the right and 0.98 on the left and there is bilateral triphasic flow. Venous reflux exam results were also reviewed and there is no evidence of deep venous thrombosis or valvular incompetence. To continue with compression dressing. His diagnostic data from December was also previously reviewed. Patient will follow up at wound healing center in one week or sooner if needed. I answered all his questions. To continue with time off of work to facilitate healing.
[2019-03-23 10:26] VITALS: BP 131/75; PULSE 62; RESP 16; TEMP 36.3; BMI 36.5
--- NOTE | 2019-03-23 10:45 | PN.PCM_ITS ---
(1) Non-pressure chronic ulcer of other part of left foot with fat layer exposed Status: Resolved Current Visit: Yes Code(s): L97.522 - Non-pressure chronic ulcer of other part of left foot with fat layer exposed (2) Delayed wound healing Status: Chronic Current Visit: Yes Code(s): T14.8XXD - Other injury of unspecified body region, subsequent encounter (3) Malnutrition Status: Suspected Current Visit: Yes Qualifiers: Code(s): E46 - Unspecified protein-calorie malnutrition (4) Idiopathic neuropathy Status: Chronic Current Visit: Yes Code(s): G60.9 - Hereditary and idiopathic neuropathy, unspecified Type of Wound Date of Service: 03/23/19 Chief Complaint: wound left plantar foot History of Wound: 63-year-old white male months ago was taking a tarp down at his daughter's house and one of the [place] got into his shoe and he was walking on it. With his peripheral neuropathy he did not realize that he had gone through his shoe and into his foot. He has been changing his dressing with Aquacel ag and tries to keep pressure off it by walking on his heel. He denies odor or redness. He has been offloading with a cam walker. He denies drainage and thinks the ulcer site is healed today. He denies fever, chill, nausea, vomiting, redness, odor streaking to the foot. Progress of Wound: Healed - Physical Exam Vital Signs Temp Pulse Resp BP 97.3 F L 62 16 131/75 H 03/23/19 10:26 03/23/19 10:26 03/23/19 10:26 03/23/19 10:26 General: Alert, Oriented x3, Cooperative, No apparent distress Extremities: No cyanosis, Capillary Refill Less than 3 Seconds, No Calf T enderness - No bogginess or fluctuance on palpation, Diminished Peripheral Pulses, Edema - Mild Skin: Ulcer/ Wound - Full epithelialization is noted in the ulcer site is heale d. His skin is atrophic and hairless. There is no purulence, erythema, string, odor, infection or necrosis Wound Measurements and Assessment WC - Nurse 1 - General Ulcer Measurement Start: 03/09/19 10:40 Freq: Status: Active Protocol: Activity Type Activity Date Activity User E-Sign Co-Sign Detail Recorded Client Recorded Date Recorded By Document 03/23/19 10:26 RADHA [id number] 03/23/19 10:27 03/23/19 10:26 Wound Center Nurse 1 [Ulcer Assessment] #4 L plantar -Combined with other wound No -Current Size (cm) - Length 0.1 -Current Size (cm) - Width 0.1 -Current Size (cm) - Depth 0.1 -Total Square Cm 0.01 -Photo Taken No -Epithelialization Large 67-100% -Tunneling No -Undermining/Tunneling No -Circular Undermining No -Granulation Amt None Present (0 %) -Slough/Fibrin No -Structure Exposed N/A -Texture (Bernice-wound Skin Appearance) No Abnormality, Assessed -Moisture (Bernice-wound Skin Appearance Assessed,Dry/ ) Scaly -Color (Bernice-wound Skin Appearance) No Abnormality, Assessed -Temperature (Bernice-wound Skin No Abnormality Appearance) (Pt Warm) -Tenderness on Palpation (Bernice-wound No Skin Appearance) -Ulcer Cleansing Rinsed/ Irrigated with Saline -Foul Odor after Cleansing No -Anesthetic Used 4% Lidocaine Solution [Edema Assessment] -Lower Limb Edema Present No WC - Nurse 2 - General Ulcer CM Notes Start: 03/09/19 10:40 Freq: Status: Active Protocol: Activity Type Activity Date Activity User E-Sign Co-Sign Detail Recorded Client Recorded Date Recorded By Document 03/23/19 10:44 AN [id number] 03/23/19 10:44 AN 03/23/19 10:44 Pain Scale: 0-10 Numeric [Pain] -Is Patient Pain Free? Yes Musculoskeletal: No Tenderness to Palpation of Joints or Extremities, Muscle Wasting, - - Dorsal contraction of lesser digits with prominent metatarsal head Neurological: - - Lack of normal epicritic sensation to light touch is consistent with his neuropathy status Psych/Mental Status: Normal Affect, Appropriate Debridement Note Post-Debridement Measurements/Treatment WC - Nurse 2 - General Ulcer CM Notes Start: 03/09/19 10:40 Freq: Status: Active Protocol: Activity Type Activity Date Activity User E-Sign Co-Sign Detail Recorded Client Recorded Date Recorded By Document 03/09/19 17:57 AN [id number] 03/09/19 17:58 AN Document 03/16/19 11:20 AN [id number] 03/16/19 11:21 AN Document 03/23/19 10:44 AN [id number] 03/23/19 10:44 AN 03/09/19 03/16/19 03/23/19 17:57 11:20 10:44 Wound Center Nurse 2 #4 L plantar -Time 14:00 11:20 -Correct Patient Yes Yes -Correct Side, Site, Position Yes Yes -Correct Procedure Yes Yes -Procedure Performed Yes Yes -Type of Procedure Debridement Debridement -Clinical Debridement Subcutaneous Subcutaneous -Post Debridement Size (cm) - Length 0.5 0.3 -Post Debridement Size (cm) - Width 0.5 0.3 -Post Debridement Size (cm) - Depth 0.3 0.3 -Total Square Cm 0.25 0.09 -Wound/Ulcer Outcome Not Healed Not Healed -Ulcer Cleansing Rinsed/ Rinsed/ Irrigated with Irrigated with Saline Saline -Foul Odor after Cleansing No No -Bioengineered Tissue No No -Bleeding Controlled with Pressure Pressure -Offloading Yes Yes -Type of Offloading Camwalker Camwalker -Treatment Response Procedure Procedure Tolerated Well Tolerated Well Pain Scale: 0-10 Numeric Is Patient Pain Free? Yes Yes Yes No debridement was completed today - healed today Assessment/Plan Active Problems Delayed wound healing (Chronic) Idiopathic neuropathy (Chronic) Assessment: Ulcer left foot-healed today. idiopathic neuropathy. obesity Plan: The patient was seen and examined at the wound center today and was updated on the plan of care. His ulcer is healed today and I recommend discontinuing the dressing care. He no longer needs to proceed with nutritional supplementation at this time. He will return to work on the and a regular work shoe. I advised him to wear the cam walker at home for an additional week to allow continued skin remodeling. He is reassured no wound or infection is noted today. He is discharged from the wound healing center at this time and will follow-up at the foot and ankle center in 1 month. I do recommend extra- depth shoes with dual density Plastizote liners to reduce his risk of additional ulcer formation and also offered palliative care assistance for his toenails d ue to his neuropathy status. I answered his questions. His prior arterial and venous studies are noted without gross abnormalities.
== END 2019-04-07 23:59 ==
LOC: WC 10:45
PROVIDERS: Family Provider Nurse Practitioner Primary Care; PCP Nurse Practitioner Primary Care; Referring Provider Nurse Practitioner; Visit Provider Podiatrist
DX: S91.332A Puncture wound without foreign body, left foot, initial encounter (principal); G60.9 Hereditary and idiopathic neuropathy, unspecified; E66.9 Obesity, unspecified; W26.8XXA Contact with other sharp object(s), not elsewhere classified, initial encounter
CPT/HCPCS: 11042; 99212; G0463

== ENCOUNTER → 2019-10-20 15:57 | Outpatient (CLI) | payer BC, SELFPAY ==
--- NOTE | 2019-10-20 | CYSPIN_PTH ---
PATIENT: JOSE J DONALD LOC: LAB U#:[id number] AGE/SX: 69/M ROOM: RE10/20/[address]: Dr. Ken Barajas MD : [id number] BED: DIS: SPEC #: [id number] RECD: 10/21/19 11:49 STATUS: SASHA REQ #: [id number] KANU: 10/20/19 00:[address]: Ken Barajas DEPT: CYTOLOGY RECD BY: Isidoro Zayas ENTERED: 10/21/19 11:49 SP TYPE: CYSPIN FL OTHR DR: Andie Tran, PROCESS TRAINER-C Tissues: Urine Procedures: Pap Stain (control) Special Stain Group II Cytospin Fluid HEADER OPERATION: Not noted PRE-OP DIAGNOSIS: Screening for malignant neoplasm of prostate TISSUE SUBMITTED: Urine for cytology DIAGNOSIS CYTOLOGY Urine for cytology (cytospin): Degenerating urothelial cells with minimal atypia. AM:[place] 10/24/19 COMMENT Clinical correlation is suggested. Case has been reviewed in consultation with Dr. Melton who concurs with the above diagnosis. IDC:[facility] CYTOLOGY STUDY Slides are reviewed. CYTOLOGY GROSS Received is 100 ml of yellow cloudy fluid labeled with the patient's name and and designated per the requisition as urine. Submitted for cytology preparation. / rg 10/21/19 TC:5 CPT: 47803
[2019-10-20 17:54] LABS: Cytology, Body Fluid / CSF SEE PATHOLOGY REPORT
[2019-10-20 18:01] LABS: PSA,Total- Diagnostic 0.99 ng/mL (0.0-4.0)
== END ==
PROVIDERS: PCP Nurse Practitioner Primary Care; Referring Provider Urology; Visit Provider Urology
DX: Z12.5 Encounter for screening for malignant neoplasm of prostate (principal)
CPT/HCPCS: 36415; 84153; 88108; 88313

== ENCOUNTER 2024-12-01 11:15 | Outpatient (RCR) | payer MEDICARE, SELFPAY ==
[2024-11-17 09:18] VITALS: BP 140/76; PULSE 75; RESP 16; TEMP 37.1; BMI 36.7
--- NOTE | 2024-11-17 09:45 | HP.PCM_ITS ---
History of Present Illness Date of Service: 11/17/24 Chief Complaint: wound left plantar foot History of Wound: Patient is a 68-year-old male with PMHx of previous ulcerations of the foot, chronic venous insufficiency/stasis dermatitis, idiopathic peripheral neuropathy, HTN, malnutrition, obesity, lower extremity edema bilateral. Patient follows with Dr. Jeronimo in [place] and reports [place] and did not wear proper shoe gear. He states that shoes were very tight and caused a blister on the medial aspect of the first metatarsal head of the right foot which did rupture/open once he returned to [place]. States that this has been present for roughly 3 weeks. He did follow with Dr. Jeronimo who prescribed Silvadene cream and dry sterile dressing to be changed daily to the site and referred him to the wound care center. Patient states it is looking better since his last visit. He denies wearing compression stockings and elevating feet. He denies additional trauma. Denies constitutional symptoms. Denies further complaints. [facility] Home Medications Medication Instructions Recorded Last Taken Type aspirin 81 mg chewable tablet 81 mg PO DAILY@0800 01/19 Unknown History atenolol 100 mg tablet 100 mg PO DAILY 06/22/13 Unk nown History garlic 1,000 mg capsule 1,000 mg PO DAILY 06/22/13 U nknown History apixaban 5 mg tablet (Eliquis) 5 mg PO BID 11/17/24 Un known History furosemide 20 mg tablet 20 mg PO DAILY 11/17/24 Unkn own History losartan 25 mg tablet 25 mg PO 11/17/24 Unknown Hi story Allergy/AdvReac Type Severity Reaction Status Date / Time Penicillins (PCN) AdvReac Unknown Verified 07/02/16 08:49 Social History Smoking Status: Never smoker ROS Constitutional Constitutional: Denies anorexia, change in weight, chills, fatigue or fever(s) Eyes Eyes: Denies blurry vision, change in vision or double vision ENT HEENT: Denies dysphagia, nasal congestion or nasal discharge Cardiovascular Cardiovascular: Denies chest pain, claudication or palpitations Respiratory/Chest Respiratory/Chest: Denies cough, shortness of breath at rest or wheezing Gastrointestinal Gastrointestinal: Denies abdominal pain, constipation, diarrhea, nausea or vomiting Genitourinary Genitourinary: Denies dysuria, hematuria or urinary urgency Musculoskeletal Musculoskeletal: Denies joint pain, joint stiffness or joint swelling Integumentary Integumentary: Denies lesions, pruritus or rash Neurologic Neurologic: Denies dizziness, numbness or seizures Psychiatric Psychiatric: Denies anxiety or depression Endocrine Endocrinology: Denies cold intolerance, heat intolerance, polydipsia or polyuria Hematologic/Lymphatic Hematologic/Lymphatic: Denies easy bleeding or easy bruising Vital Signs Vital Signs Vital Signs: 11/17/24 09:18 Temperature 98.8 F Temperature Source Temporal Pulse Rate 75 Respiratory Rate 16 Blood Pressure 140/76 H Blood Pressure Mean 97 Blood Pressure Source Monitor Blood Pressure Position Sitting Blood Pressure Location Left Arm Oxygen Delivery Method Room Air Weight Weight: 140.614 kg Body Mass Index (BMI) 36.7 Physical Exam Const alert, oriented x3 and no apparent distress General Appearance: cooperative HEENT normocephalic Eyes General Eye: normal appearance of both eyes Neck General: normal visual inspection Lymph Lymphatic: no lymphadenopathy noted and no lymphedema noted Resp normal respiratory effort Cardio regular rate and regular rhythm Extremity no calf tenderness Extremity Narrative: Bilateral lower extremity: Vascular: DP and PT pulses palpable. CFT is less than 3 seconds to digits. Normal temperature gradient. Hair growth is diminished to the digits. Neurologic: Epicritic sensation intact, no focal deficit noted. Musculoskeletal: Muscle strength 5 5 age-appropriate. There is decreased range of motion of the ankle joint dorsiflexion with the knee extended without pain or crepitus. Full range of motion with knee flexed. Decreased range of motion of the first MTPJ. Semirigid hammertoe deformity to digits 1 through 5. No pain to palpation to bones of the foot or ankle. Negative Alvarez sign. Negative Homans' sign. Dermatologic: There are varicosities noted to the lower extremity that are more prominent about the medial ankle. There is hemosiderin deposition throughout the lower extremity secondary to chronic venous stasis dermatitis. Along the medial aspect of the right foot at the first metatarsal head there is evidence of previous ruptured blister with superficial ulceration secondary to ill fitting shoe gear. There is evidence of healing of this ulcerative site noted. No signs of infection. Skin skin turgor normal General Skin Exam: venous stasis and dermatitis Neuro moves all extremities Debridement Note Debridement Note Wound debrided: Right foot Laterality: Right Wound Grade/Stage: Mittal stage I Type of Debridement: Excisional debridement Anesthesia Used: 5% Lidocaine Gel Depth: Down to and including healthy tissue and in the subcutaneous layer Percentage of wound debrided: 100 Instrument Used: - (Moistened gauze) Tissue Removed: Fibrous, devitalized subcutaneous, biofilm, slough Severity: Limited To Skin Breakdown (Down to level of dermis) Amount of bleeding with debridement: Mild Bleeding Controlled with: Compression and gauze Patient tolerated procedure: Patient tolerated procedure well Post-Debridement Measurements and Additional Note: Post-Debridement Measurements/Treatment - Nurse 1 - General Ulcer Assessment Start: 11/17/24 09:09 Freq: Status: Active Protocol: DILLON Activity Type Activity Date Activity User E-sign Co-sign Detail Recorded Client Recorded Date Recorded By Document 11/17/24 09:18 ROULA [id number] 11/17/24 09:27 ROULA 11/17/24 09:18 - Today's Visit Information Type of service Initial Visit Arrival Mode Ambulatory Patient Identification Verified (Name & Yes ) Height and Weight Height 6 ft 5 in Weight 140.614 kg Weight in Pounds 310.0 lbs Weight Measurement Method Estimated by Patient Body Mass Index (BMI) 36.7 BMI Classification Obese Vital Signs Temperature (97.8 F-99.1 F) 98.8 F Temperature Source Temporal Pulse Rate (60-100) 75 Pulse Location Monitor Respiratory Rate (12-18) 16 Respiratory rate source Observation Oxygen Delivery Method Room Air Blood Pressure (90/60-120/80) 140/76 H Blood Pressure Mean 97 Source Monitor Position Sitting Blood Pressure Location Left Arm History Since Last Visit- (Skip if this is Patient's initial visit) Left Footwear Regular Shoe Right Footwear Regular Shoe Pain Scale: 0-10 Numeric Is Patient Pain Free? Yes Communication Assessment Preferred language Indonesian Business Services Administrator Required No Able to Read Yes Able to Write Yes Communication Tools None Caregiver Communication Skills No Impairment Impairment Right Hearing Abillity Normal Left Hearing Abillity Normal Visual Assistive Devices Glasses Teaching Assessment Preferences Verbal,Written, Demonstration Barriers to Learning None Readiness To Learn Excellent Willingness to Engage in Self Management High Activies Readiness to Engage in Self Management High Activities Anxiety Level Calm Cooperation Cooperative Perception Coherent Interest in Health Problem Asks Questions Education Importance Acknowledges Need Does Patient Smoke tobacco or other Yes substances Smoking Status Never smoker Is Patient Diabetic No Functional Assessment Recent Decline in Ability to Perform Denies Any Declines Culture/Mormon/Business Continuity Management Director Cultural/Mormon Needs that may affect No Treatment Plan Would you allow our hospital production line manager to No meet you for the purpose of spiritual/ emotional support? Business Continuity Management Director to contact place of roman catholic No WC - Nurse 1 - General Ulcer Measurement Start: 11/17/24 09:09 Freq: Status: Active Protocol: Activity Type Activity Date Activity User E-sign Co-sign Detail Recorded Client Recorded Date Recorded By Document 11/17/24 09:18 KW [id number] 11/17/24 09:27 KW Edit Result 11/17/24 09:18 KW (1) [id number] 11/17/24 09:30 KW (1) Right Calf (cm) => 42.5 Right Ankle (cm) => 26.5 Left Calf (cm) => 42.5 Left Ankle (cm) => 25.5 11/17/24 09:18 Wound Center Nurse 1 5 RT MED FOOT -Current Size (cm) - Length 2.5 -Current Size (cm) - Width 2.5 -Current Size (cm) - Depth 0.2 -Total Square Cm 6.25 -Date of Last Picture (Recall this 11/17/24 field) -Exudate Amt Small -Exudate Type Serosanguineous -Wound Margin Distinct, Outline Attached -Granulation Amt Large (67-100%) -Granulation Quality [place] -Texture (Bernice-wound Skin Appearance) Assessed -Moisture (Bernice-wound Skin Appearance) Assessed, Maceration -Color (Bernice-wound Skin Appearance) Assessed -Temperature (Bernice-wound Skin No Abnormality Appearance) (Pt Warm) -Tenderness on Palpation (Bernice-wound No Skin Appearance) -Ulcer Cleansing Soap and Water -Foul Odor after Cleansing No -Anesthetic Used 5% Lidocaine Gel Right Calf (cm) 42.5 Right Ankle (cm) 26.5 Left Calf (cm) 42.5 Left Ankle (cm) 25.5 Assessment/Plan Assessment/Plan (1) Non-pressure chronic ulcer of other part of right foot with fat layer exposed: CODE(S): L97.512 - Non-pressure chronic ulcer of other part of right foot with fat layer exposed (2) Idiopathic neuropathy: CODE(S): G60.9 - Hereditary and idiopathic neuropathy, unspecified (3) Venous insufficiency (chronic) (peripheral): CODE(S): I87.2 - Venous insufficiency (chronic) (peripheral) (4) Bilateral edema of lower extremity: CODE(S): R60.0 - Localized edema PLAN: Plan Patient seen and evaluated Predebridement measurement: 3.4 cm x 2.9 cm x 0.1 cm Postdebridement measurement: 3.5 cm x 3.0 cm x 0.1 cm medial first metatarsal head Ulceration underwent debridement as noted in the clinical panel above. Triple antibiotic ointment and large Band-Aid applied to site. He is instructed to change this daily. Discussed proper fitting shoe gear with him today. Currently he did purchase better fitting new balance 608 shoe. Discussed this will be sufficient moving forward. Discussed continued elevation of the lower extremities at times of rest. Recommended to sleep in bed flat to aid in venous return overnight. Recommended wearing of compression stocking 20 to 30 mmHg at all times and to avoid prolonged standing or prolonged sitting with feet down. Recommended continued activity to aid in venous return and for overall health. Discussed adequate protein intake to aid in wound healing. Discussed signs and symptoms of infection. Discussed if he notices any redness around the ulcerative site that moves on top of the foot or along the inside of the arch of the foot making its way towards the ankle, if he notices purulent drainage from the wound site, increasing foul odor from the wound, or if he experiences fever greater than 101 degree accompanied by nausea, vomiting, chills of these are signs of a progressing infection and he should report to the ED for IV antibiotics and further evaluation. He is understanding of this. The following work up and care recommendations were made: Dressing: Triple antibiotic and Band-Aid Wash: Soap and water Tissue growth optimization: None Offload: Ensure proper fitting shoe gear to avoid irritation of the medial aspect of the first metatarsal head. Will pad and protect with Band-Aid during healing. Vascular: Vascular status and not impacting healing at this time. Edema: Will continue to elevate lower extremities to aid in reduction of edema. Compression stockings of 20 to 30 mm were recommended. Infection: No signs of infection Pain: May take [id number] Tylenol or ibuprofen for discomfort Host factors: Chronic venous insufficiency/stasis dermatitis, noncompliance with compression stocking, idiopathic neuropathy complicate healing. I answered all the patient's questions. To return to the wound healing center in 1 week or call sooner if the patient has any questions or concerns.
[2024-11-24 09:16] VITALS: BP 140/82; PULSE 80; RESP 18; TEMP 36.7; BMI 36.7
--- NOTE | 2024-11-24 11:36 | PN.PCM_ITS ---
History of Present Illness Date of Service: 11/24/24 Chief Complaint: wound left plantar foot History of Wound: Patient is a 68-year-old male with PMHx of previous ulcerations of the foot, chronic venous insufficiency/stasis dermatitis, idiopathic peripheral neuropathy, HTN, malnutrition, obesity, lower extremity edema bilateral. Patient follows with Dr. Jeronimo in [place] and reports [place] and did not wear proper shoe gear. He states that shoes were very tight and caused a blister on the medial aspect of the first metatarsal head of the right foot which did rupture/open once he returned to [place]. States that this has been present for roughly 3 weeks. He did follow with Dr. Jeronimo who prescribed Silvadene cream and dry sterile dressing to be changed daily to the site and referred him to the wound care center. Patient states it is looking better since his last visit. He denies wearing compression stockings and elevating feet. He denies additional trauma. Denies constitutional symptoms. Denies further complaints. Subjective Subjective This is a 69-year-old male who continues to follow with wound care center for ulceration of the medial aspect of the first metatarsal head. He continues changing dressings as instructed and feels it is healing very well. Denies constitutional symptoms today. Denies further complaints. Objective Data Objective Data Vital Signs: Vital Signs Temp Pulse Resp BP O2 Del Method 98.1 F 80 18 140/82 H Room Air 11/24/24 09:16 11/24/24 09:16 11/24/24 09:16 11/24/24 09:16 11/17/24 09:18 Oxygen Delivery Method Room Air Weight: 140.614 kg Body Mass Index (BMI) 36.7 Physical Exam Const alert, oriented x3 and no apparent distress General Appearance: cooperative HEENT normocephalic Eyes General Eye: normal appearance of both eyes Neck General: normal visual inspection Lymph Lymphatic: no lymphadenopathy noted and no lymphedema noted Resp normal respiratory effort Cardio regular rate and regular rhythm Extremity no calf tenderness Extremity Narrative: Bilateral lower extremity: Vascular: DP and PT pulses palpable. CFT is less than 3 seconds to digits. Normal temperature gradient. Hair growth is diminished to the digits. Neurologic: Epicritic sensation intact, no focal deficit noted. Musculoskeletal: Muscle strength 5 5 age-appropriate. There is decreased range of motion of the ankle joint dorsiflexion with the knee extended without pain or crepitus. Full range of motion with knee flexed. Decreased range of motion of the first MTPJ. Semirigid hammertoe deformity to digits 1 through 5. No pain to palpation to bones of the foot or ankle. Negative Alvarez sign. Negative Homans' sign. Dermatologic: There are varicosities noted to the lower extremity that are more prominent about the medial ankle. There is hemosiderin deposition throughout the lower extremity secondary to chronic venous stasis dermatitis. Along the medial aspect of the right foot at the first metatarsal head there is evidence of previous ruptured blister with superficial ulceration secondary to ill fitting shoe gear. There is evidence of healing of this ulcerative site noted. No signs of infection. Skin skin turgor normal General Skin Exam: venous stasis and dermatitis Neuro moves all extremities Debridement Note Debridement Note No debridement was completed: No debridement was completed today Post-Debridement Measurements and Additional Note: Post-Debridement Measurements/Treatment WC - Nurse 1 - General Ulcer Assessment Start: 11/17/24 09:09 Freq: Status: Active Protocol: DILLON Activity Type Activity Date Activity User E-sign Co-sign Detail Recorded Client Recorded Date Recorded By Document 11/17/24 09:18 KW [id number] 11/17/24 09:27 KW Document 11/24/24 09:16 DL [id number] 11/24/24 09:21 DL 11/17/24 11/24/24 09:18 09:16 - Today's Visit Information Type of service Initial Visit Follow-up Visit (Physician/[employer] ) Arrival Mode Ambulatory Ambulatory Transfer Assistance None Patient Identification Verified (Name & Yes Yes ) Patient Requires Transmission-Based No Precautions Height and Weight Height 6 ft 5 in Weight 140.614 kg Weight in Pounds 310.0 lbs Weight Measurement Method Estimated by Patient Body Mass Index (BMI) 36.7 36.7 BMI Classification Obese Obese Vital Signs Temperature (97.8 F-99.1 F) 98.8 F 98.1 F Temperature Source Temporal Temporal Pulse Rate (60-100) 75 80 Pulse Location Monitor Monitor Respiratory Rate (12-18) 16 18 Respiratory rate source Observation Observation Oxygen Delivery Method Room Air Blood Pressure (90/60-120/80) 140/76 H 140/82 H Blood Pressure Mean (mm Hg) 97 101 Source Monitor Monitor Position Sitting Blood Pressure Location Left Arm History Since Last Visit- (Skip if this is Patient's initial visit) Have you changed medications since your No last visit? Any new allergies or adverse reactions No Had a fall/change in ADL's that may No increase risk of falls Signs or symptoms of abuse and/or No neglect since last visit Have you been in the hospital since your No last visit? Has dressing in place as prescribed Yes Has compression in place as prescribed N/A Has offloadiing in place as prescribed N/A Experienced any changes in pain level or No management Left Footwear Regular Shoe Right Footwear Regular Shoe Pain Scale: 0-10 Numeric Is Patient Pain Free? Yes Yes Communication Assessment Preferred language [place] [employer] Required No Able to Read Yes Able to Write Yes Communication Tools None Caregiver Communication Skills No Impairment Impairment Right Hearing Abillity Normal Left Hearing Abillity Normal Visual Assistive Devices Glasses Teaching Assessment Preferences Verbal,Written, Demonstration Barriers to Learning None Readiness To Learn Excellent Willingness to Engage in Self Management High Activies Readiness to Engage in Self Management High Activities Anxiety Level Calm Cooperation Cooperative Perception Coherent Interest in Health Problem Asks Questions Education Importance Acknowledges Need Does Patient Smoke tobacco or other Yes substances Smoking Status Never smoker Is Patient Diabetic No Functional Assessment Recent Decline in Ability to Perform Denies Any Declines Culture/Pentecostalism/[employer] Cultural/Pentecostalism Needs that may affect No Treatment Plan Would you allow our hospital geospatial developer to No meet you for the purpose of spiritual/ emotional support? [employer] Fe[employer] Driller to contact place of quaker No WC - Nurse 1 - General Ulcer Measurement Start: 11/17/24 09:09 Freq: Status: Active Protocol: Activity Type Activity Date Activity User E-sign Co-sign Detail Recorded Client Recorded Date Recorded By Document 11/17/24 09:18 KW [id number] 11/17/24 09:27 KW Edit Result 11/17/24 09:18 KW (1) [id number] 11/17/24 09:30 KW Document 11/24/24 09:16 DL [id number] 11/24/24 09:21 DL (1) Right Calf (cm) => 42.5 Right Ankle (cm) => 26.5 Left Calf (cm) => 42.5 Left Ankle (cm) => 25.5 11/17/24 11/24/24 09:18 09:16 Wound Center Nurse 1 5 RT MED FOOT -Current Size (cm) - Length 2.5 0.5 -Current Size (cm) - Width 2.5 0.3 -Current Size (cm) - Depth 0.2 0.1 -Total Square Cm 6.25 0.15 -Date of Last Picture (Recall this 11/17/24 field) -Photo Taken Yes -Exudate Amt Small None Present -Exudate Type Serosanguineous -Wound Margin Distinct, Thickened Outline Attached -Granulation Amt Large (67-100%) Small (1-33%) -Granulation Quality [place] -Necrosis Amt Small (1-33%) -Necrotic Tissue Type Adherent Slough -Structure Exposed N/A -Texture (Bernice-wound Skin Appearance) Assessed Scarring -Moisture (Bernice-wound Skin Appearance) Assessed, No Abnormality Maceration -Color (Bernice-wound Skin Appearance) Assessed No Abnormality -Temperature (Bernice-wound Skin No Abnormality No Abnormality Appearance) (Pt Warm) (Pt Warm) -Tenderness on Palpation (Bernice-wound No Skin Appearance) -Ulcer Cleansing Soap and Water Rinsed/ Irrigated with Saline -Foul Odor after Cleansing No No -Anesthetic Used 5% Lidocaine 4% Lidocaine Gel Solution Right Calf (cm) 42.5 Right Ankle (cm) 26.5 Left Calf (cm) 42.5 Left Ankle (cm) 25.5 WC - Nurse 2 - General Ulcer CM Notes Start: 11/17/24 09:09 Freq: Status: Active Protocol: Activity Type Activity Date Activity User E-sign Co-sign Detail Recorded Client Recorded Date Recorded By Document 11/17/24 09:42 [facility] [id number] 11/17/24 09:59 [facility] Document 11/24/24 09:37 [facility] [id number] 11/24/24 09:40 [facility] 11/17/24 11/24/24 09:42 09:37 Wound Center Nurse 2 5 RT MED FOOT -Time 09:42 09:38 -Correct Patient Yes -Correct Side, Site, Position Yes -Correct Procedure Yes -Procedure Performed Yes No -Type of Procedure Debridement -Clinical Debridement Subcutaneous -Tissue Removed Subcutaneous -Post Debridement (cm) - Length 3.5 0.7 -Post Debridement (cm) - Width 3 1 -Post Debridement (cm) - Depth 0.1 0.1 -Total Square (Post) (cm) 10.5 0.7 -Area of Debridement (cm) - Length 3.5 0.7 -Area of Debridement (cm) - Width 3 1 -Total Square (Area) (cm) 10.5 0.7 -Tunneling No No -Undermining/Tunneling No No -Circular Undermining No No -Wound/Ulcer Outcome Not Healed Not Healed -Ulcer Cleansing Rinsed/ Rinsed/ Irrigated with Irrigated with Saline Saline -Foul Odor after Cleansing No No -Bioengineered Tissue No No -Bleeding Controlled with Pressure NA -Treatment Response Procedure Procedure Tolerated Well Tolerated Well -Debridement - Subq, 1st 20sq cm Yes Pain Scale: 0-10 Numeric Is Patient Pain Free? Yes Yes - Nurse 3 - General Ulcer D/C NN Start: 11/17/24 09:09 Freq: Status: Active Protocol: Activity Type Activity Date Activity User E-sign Co-sign Detail Recorded Client Recorded Date Recorded By Document 11/17/24 10:10 DL [id number] 11/17/24 10:11 DL Document 11/24/24 09:41 [facility] [id number] 11/24/24 09:41 [facility] 11/17/24 11/24/24 10:10 09:41 Wound Care Center Nurse 3 5 RT MED FOOT -Ulcer Cleansing Rinsed/ Rinsed/ Irrigated with Irrigated with Saline Saline -Foul Odor after Cleansing No No -Primary Dressing Applied Silicone Border Foam 4x4 -Other Dressing BACITRACIN THIN LAYER OF ATB OINT AND BANDAID -Silicone Border Foam 4x4 1 Treatment Response Procedure Procedure Tolerated Well Tolerated Well Pain Scale: 0-10 Numeric Is Patient Pain Free? 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: CODE(S): L97.512 - Non-pressure chronic ulcer of other part of right foot with fat layer exposed (2) Idiopathic neuropathy: CODE(S): G60.9 - Hereditary and idiopathic neuropathy, unspecified (3) Venous insufficiency (chronic) (peripheral): CODE(S): I87.2 - Venous insufficiency (chronic) (peripheral) (4) Bilateral edema of lower extremity: CODE(S): R60.0 - Localized edema PLAN: Plan Patient seen and evaluated Predebridement measurement: 0.7 cm x 1.0 cm x 0.1 cm Postdebridement measurement: 0.7 cm x 1.0 cm x 0.1 cm medial first metatarsal head Ulceration did not undergo debridement as noted in the clinical panel above. Triple antibiotic ointment and large Band-Aid applied to site. He is instructed to change this daily. Ulceration demonstrates significant reduction in size versus the previous visit and is noted to be healing well. Previously discussed proper fitting shoe gear with him. He did purchase better fitting new balance 608 shoe. Discussed this will be sufficient moving forward. Discussed continued elevation of the lower extremities at times of rest. Recommended to sleep in bed flat to aid in venous return overnight. Recommended wearing of compression stocking 20 to 30 mmHg at all times and to avoid prolonged standing or prolonged sitting with feet down. Recommended continued activity to aid in venous return and for overall health. Discussed adequate protein intake to aid in wound healing. Discussed signs and symptoms of infection. Discussed if he notices any redness around the ulcerative site that moves on top of the foot or along the inside of the arch of the foot making its way towards the ankle, if he notices purulent drainage from the wound site, increasing foul odor from the wound, or if he experiences fever greater than 101 degree accompanied by nausea, vomiting, chills of these are signs of a progressing infection and he should report to the ED for IV antibiotics and further evaluation. He is understanding of this. The following work up and care recommendations were made: Dressing: Triple antibiotic and Band-Aid Wash: Soap and water Tissue growth optimization: None Offload: Ensure proper fitting shoe gear to avoid irritation of the medial aspect of the first metatarsal head. Will pad and protect with Band-Aid during healing. Vascular: Vascular status and not impacting healing at this time. Edema: Will continue to elevate lower extremities to aid in reduction of edema. Compression stockings of 20 to 30 mm were recommended. Infection: No signs of infection Pain: May take [id number] Tylenol or ibuprofen for discomfort Host factors: Chronic venous insufficiency/stasis dermatitis, noncompliance with compression stocking, idiopathic neuropathy complicate healing. I answered all the patient's questions. To return to the wound healing center in 1 week or call sooner if the patient has any questions or concerns.
[2024-12-01 11:19] VITALS: BP 119/80; PULSE 74; RESP 18; TEMP 36.6; BMI 36.7
--- NOTE | 2024-12-01 12:25 | PCM.WC.PN ---
History of Present Illness Date of Service: 12/01/24 Chief Complaint: wound left plantar foot History of Wound: Patient is a 68-year-old male with PMHx of previous ulcerations of the foot, chronic venous insufficiency/stasis dermatitis, idiopathic peripheral neuropathy, HTN, malnutrition, obesity, lower extremity edema bilateral. Patient follows with Dr. Jeronimo in [place] and reports [place] was [place] and did not wear proper shoe gear. He states that shoes were very tight and caused a blister on the medial aspect of the first metatarsal head of the right foot which did rupture/open once he returned to [place]. States that this has been present for roughly 3 weeks. He did follow with Dr. Jeronimo who prescribed Silvadene cream and dry sterile dressing to be changed daily to the site and referred him to the wound care center. Patient states it is looking better since his last visit. He denies wearing compression stockings and elevating feet. He denies additional trauma. Denies constitutional symptoms. Denies further complaints. Subjective Subjective This is a 69-year-old male who continues to follow with wound care center for ulceration of the medial aspect of the first metatarsal head. He continues changing dressings as instructed and continues to note site is healing well. Denies constitutional symptoms today. Denies further complaints. Objective Data Objective Data Vital Signs: Vital Signs Temp Pulse Resp BP O2 Del Method 97.8 F 74 18 119/80 Room Air 12/01/24 11:19 12/01/24 11:19 12/01/24 11:19 12/01/24 11:19 11/17/24 09:18 Oxygen Delivery Method Room Air Weight: 140.614 kg Body Mass Index (BMI) 36.7 Physical Exam Const alert, oriented x3 and no apparent distress General Appearance: cooperative HEENT normocephalic Eyes General Eye: normal appearance of both eyes Neck General: normal visual inspection Lymph Lymphatic: no lymphadenopathy noted and no lymphedema noted Resp normal respiratory effort Cardio regular rate and regular rhythm Extremity no calf tenderness Extremity Narrative: Bilateral lower extremity: Vascular: DP and PT pulses palpable. CFT is less than 3 seconds to digits. Normal temperature gradient. Hair growth is diminished to the digits. Neurologic: Epicritic sensation intact, no focal deficit noted. Musculoskeletal: Muscle strength 5 5 age-appropriate. There is decreased range of motion of the ankle joint dorsiflexion with the knee extended without pain or crepitus. Full range of motion with knee flexed. Decreased range of motion of the first MTPJ. Semirigid hammertoe deformity to digits 1 through 5. No pain to palpation to bones of the foot or ankle. Negative Alvarez sign. Negative Homans' sign. Dermatologic: There are varicosities noted to the lower extremity that are more prominent about the medial ankle. There is hemosiderin deposition throughout the lower extremity secondary to chronic venous stasis dermatitis. Along the medial aspect of the right foot at the first metatarsal head there is evidence of previous ruptured blister with superficial ulceration secondary to ill fitting shoe gear. There is evidence of healing of this ulcerative site noted. No signs of infection. Skin skin turgor normal General Skin Exam: venous stasis and dermatitis Neuro moves all extremities Debridement Note Debridement Note Wound debrided: Right foot Laterality: Right Wound Grade/Stage: Mittal stage I Type of Debridement: Excisional debridement Anesthesia Used: 5% Lidocaine Gel Depth: Down to and including healthy tissue and in the subcutaneous layer Percentage of wound debrided: 100 Instrument Used: #15 blade Tissue Removed: Fibrous, devitalized subcutaneous, biofilm, slough Severity: Fat Layer Exposed Amount of bleeding with debridement: Mild Bleeding Controlled with: Compression and gauze Patient tolerated procedure: Patient tolerated procedure well Post-Debridement Measurements and Additional Note: Post-Debridement Measurements/Treatment - Nurse 1 - General Ulcer Assessment Start: 11/17/24 09:09 Freq: Status: Active Protocol: [email or web address] Activity Type Activity Date Activity User E-sign Co-sign Detail Recorded Client Recorded Date Recorded By Document 11/17/24 09:18 KW [id number] 11/17/24 09:27 KW Document 11/24/24 09:16 DL [id number] 11/24/24 09:21 DL Document 12/01/24 11:19 DL [id number] 12/01/24 11:24 DL 11/17/24 11/24/24 12/01/24 09:18 09:16 11:19 - Today's Visit Information Type of service Initial Visit Follow-up Visit Follow-up Visit (Physician/DOUGHNUT GLAZIER (Physician/DOUGHNUT GLAZIER ) ) Arrival Mode Ambulatory Ambulatory Ambulatory Transfer Assistance None None Patient Identification Verified (Name & Yes Yes Yes ) Patient Requires Transmission-Based No No Precautions Height and Weight Height 6 ft 5 in Weight 140.614 kg Weight in Pounds 310.0 lbs Weight Measurement Method Estimated by Patient Body Mass Index (BMI) 36.7 36.7 36.7 BMI Classification Obese Obese Obese Vital Signs Temperature (97.8 F-99.1 F) 98.8 F 98.1 F 97.8 F Temperature Source Temporal Temporal Temporal Pulse Rate (60-100) 75 80 74 Pulse Location Monitor Monitor Monitor Respiratory Rate (12-18) 16 18 18 Respiratory rate source Observation Observation Observation Oxygen Delivery Method Room Air Blood Pressure (90/60-120/80) 140/76 H 140/82 H 119/80 Blood Pressure Mean (mm Hg) 97 101 93 Source Monitor Monitor Monitor Position Sitting Blood Pressure Location Left Arm History Since Last Visit- (Skip if this is Patient's initial visit) Have you changed medications since your No No last visit? Any new allergies or adverse reactions No No Had a fall/change in ADL's that may No No increase risk of falls Signs or symptoms of abuse and/or No No neglect since last visit Have you been in the hospital since your No No last visit? Has dressing in place as prescribed Yes Yes Has compression in place as prescribed N/A Yes Has offloadiing in place as prescribed N/A Yes Experienced any changes in pain level or No No management Left Footwear Regular Shoe Right Footwear Regular Shoe Pain Scale: 0-10 Numeric Is Patient Pain Free? Yes Yes Yes Communication Assessment Preferred language Bel[place]ian Can Closing Machine Tender Required No Able to Read Yes Able to Write Yes Communication Tools None Caregiver Communication Skills No Impairment Impairment Right Hearing Abillity Normal Left Hearing Abillity Normal Visual Assistive Devices Glasses Teaching Assessment Preferences Verbal,Written, Demonstration Barriers to Learning None Readiness To Learn Excellent Willingness to Engage in Self Management High Activies Readiness to Engage in Self Management High Activities Anxiety Level Calm Cooperation Cooperative Perception Coherent Interest in Health Problem Asks Questions Education Importance Acknowledges Need Does Patient Smoke tobacco or other Yes substances Smoking Status Never smoker Is Patient Diabetic No Functional Assessment Recent Decline in Ability to Perform Denies Any Declines Culture/Uatsdin/Submersible Pilot Cultural/Uatsdin Needs that may affect No Treatment Plan Would you allow our hospital slip seat coverer to No meet you for the purpose of spiritual/ emotional support? Submersible Pilot to contact place of christian No WC - Nurse 1 - General Ulcer Measurement Start: 11/17/24 09:09 Freq: Status: Active Protocol: Activity Type Activity Date Activity User E-sign Co-sign Detail Recorded Client Recorded Date Recorded By Document 11/17/24 09:18 KW [id number] 11/17/24 09:27 KW Edit Result 11/17/24 09:18 KW (1) [id number] 11/17/24 09:30 KW Document 11/24/24 09:16 DL [id number] 11/24/24 09:21 DL Document 12/01/24 11:19 DL [id number] 12/01/24 11:24 DL (1) Right Calf (cm) => 42.5 Right Ankle (cm) => 26.5 Left Calf (cm) => 42.5 Left Ankle (cm) => 25.5 11/17/24 11/24/24 12/01/24 09:18 09:16 11:19 Wound Center Nurse 1 5 RT MED FOOT -Current Size (cm) - Length 2.5 0.5 0.3 -Current Size (cm) - Width 2.5 0.3 0.2 -Current Size (cm) - Depth 0.2 0.1 0.1 -Total Square Cm 6.25 0.15 0.06 -Date of Last Picture (Recall this 11/17/24 field) -Photo Taken Yes -Exudate Amt Small None Present None Present -Exudate Type Serosanguineous -Wound Margin Distinct, Thickened Distinct, Outline Outline Attached Attached -Granulation Amt Large (67-100%) Small (1-33%) Small (1-33%) -Granulation Quality Heavener Heavener Heavener -Necrosis Amt Small (1-33%) Small (1-33%) -Necrotic Tissue Type Adherent Slough Adherent Slough -Structure Exposed N/A N/A -Texture (Bernice-wound Skin Appearance) Assessed Scarring Callus,Scarring -Moisture (Bernice-wound Skin Appearance) Assessed, No Abnormality No Abnormality Maceration -Color (Bernice-wound Skin Appearance) Assessed No Abnormality No Abnormality -Temperature (Bernice-wound Skin No Abnormality No Abnormality No Abnormality Appearance) (Pt Warm) (Pt Warm) (Pt Warm) -Tenderness on Palpation (Bernice-wound No Skin Appearance) -Ulcer Cleansing Soap and Water Rinsed/ Soap and Water Irrigated with Saline -Foul Odor after Cleansing No No No -Anesthetic Used 5% Lidocaine 4% Lidocaine 5% Lidocaine Gel Solution Gel Right Calf (cm) 42.5 Right Ankle (cm) 26.5 Left Calf (cm) 42.5 Left Ankle (cm) 25.5 WC - Nurse 2 - General Ulcer CM Notes Start: 11/17/24 09:09 Freq: Status: Active Protocol: Activity Type Activity Date Activity User E-sign Co-sign Detail Recorded Client Recorded Date Recorded By Document 11/17/24 09:42 [facility] [id number] 11/17/24 09:59 [facility] Document 11/24/24 09:37 [facility] [id number] 11/24/24 09:40 [facility] Document 12/01/24 11:37 [facility] [id number] 12/01/24 11:39 [facility] 11/17/24 11/24/24 12/01/24 09:42 09:37 11:37 Wound Center Nurse 2 5 RT MED FOOT -Time 09: 09:38 11:37 -Correct Patient Yes Yes -Correct Side, Site, Position Yes Yes -Correct Procedure Yes Yes -Procedure Performed Yes No Yes -Type of Procedure Debridement Debridement -Clinical Debridement Subcutaneous Subcutaneous -Tissue Removed Subcutaneous Subcutaneous -Post Debridement (cm) - Length 3.5 0.7 0.3 -Post Debridement (cm) - Width 3 1 0.3 -Post Debridement (cm) - Depth 0.1 0.1 0.1 -Total Square (Post) (cm) 10.5 0.7 0.09 -Area of Debridement (cm) - Length 3.5 0.7 0.3 -Area of Debridement (cm) - Width 3 1 0.3 -Total Square (Area) (cm) 10.5 0.7 0.09 -Tunneling No No No -Undermining/Tunneling No No No -Circular Undermining No No No -Wound/Ulcer Outcome Not Healed Not Healed Not Healed -Ulcer Cleansing Rinsed/ Rinsed/ Rinsed/ Irrigated with Irrigated with Irrigated with Saline Saline Saline -Foul Odor after Cleansing No No No -Bioengineered Tissue No No No -Bleeding Controlled with Pressure NA Pressure -Treatment Response Procedure Procedure Procedure Tolerated Well Tolerated Well Tolerated Well -Debridement - Subq, 1st 20sq cm Yes Yes Pain Scale: 0-10 Numeric Is Patient Pain Free? Yes Yes Yes WC - Nurse 3 - General Ulcer D/C NN Start: 11/17/24 09:09 Freq: Status: Active Protocol: Activity Type Activity Date Activity User E-sign Co-sign Detail Recorded Client Recorded Date Recorded By Document 11/17/24 10:10 DL [id number] 11/17/24 10:11 DL Document 11/24/24 09:41 [facility] [id number] 11/24/24 09:41 BM Document 12/01/24 11:41 [facility] [id number] 12/01/24 11:41 [facility] 11/17/24 11/24/24 12/01/24 10:10 09:41 11:41 Wound Care Center Nurse 3 5 RT MED FOOT -Ulcer Cleansing Rinsed/ Rinsed/ Rinsed/ Irrigated with Irrigated with Irrigated with Saline Saline Saline -Foul Odor after Cleansing No No No -Primary Dressing Applied Silicone Border Foam 4x4 -Other Dressing BACITRACIN THIN LAYER OF atb oint, ATB OINT AND bandaid BANDAID -Silicone Border Foam 4x4 1 Treatment Response Procedure Procedure Procedure Tolerated Well Tolerated Well Tolerated Well Pain Scale: 0-10 Numeric Is Patient Pain Free? Yes Yes Yes WC - Visit Discharge Discharge Condition Stable Stable Stable Ambulatory Status Ambulatory Ambulatory Ambulatory Transportation Private Auto Private Auto Private Auto Assessment/Plan Assessment/Plan (1) Non-pressure chronic ulcer of other part of right foot with fat layer exposed: CODE(S): L97.512 - Non-pressure chronic ulcer of other part of right foot with fat layer exposed (2) Idiopathic neuropathy: CODE(S): G60.9 - Hereditary and idiopathic neuropathy, unspecified (3) Venous insufficiency (chronic) (peripheral): CODE(S): I87.2 - Venous insufficiency (chronic) (peripheral) (4) Bilateral edema of lower extremity: CODE(S): R60.0 - Localized edema PLAN: Plan Patient seen and evaluated Predebridement measurement: 0.2 cm x 0.2 cm x 0.1 cm Postdebridement measurement: 0.3 cm x 0.3 cm x 0.1 cm medial first metatarsal head Ulceration did undergo debridement as noted in the clinical panel above. Triple antibiotic ointment and large Band-Aid applied to site. He is instructed to change this daily. Ulceration demonstrates significant reduction in size versus the previous visit and is noted to be healing well. Site is nearing closure. Previously discussed proper fitting shoe gear with him. He did purchase better fitting new balance 608 shoe. Discussed this will be sufficient moving forward. Discussed continued elevation of the lower extremities at times of rest. Recommended to sleep in bed flat to aid in venous return overnight. Recommended wearing of compression stocking 20 to 30 mmHg at all times and to avoid prolonged standing or prolonged sitting with feet down. Recommended continued activity to aid in venous return and for overall health. Discussed adequate protein intake to aid in wound healing. Discussed signs and symptoms of infection. Discussed if he notices any redness around the ulcerative site that moves on top of the foot or along the inside of the arch of the foot making its way towards the ankle, if he notices purulent drainage from the wound site, increasing foul odor from the wound, or if he experiences fever greater than 101 degree accompanied by nausea, vomiting, chills of these are signs of a progressing infection and he should report to the ED for IV antibiotics and further evaluation. He is understanding of this. The following work up and care recommendations were made: Dressing: Triple antibiotic and Band-Aid Wash: Soap and water Tissue growth optimization: None Offload: Ensure proper fitting shoe gear to avoid irritation of the medial aspect of the first metatarsal head. Will pad and protect with Band-Aid during healing. Vascular: Vascular status and not impacting healing at this time. Edema: Will continue to elevate lower extremities to aid in reduction of edema. Compression stockings of 20 to 30 mm were recommended. Infection: No signs of infection Pain: May take [id number] Tylenol or ibuprofen for discomfort Host factors: Chronic venous insufficiency/stasis dermatitis, noncompliance with compression stocking, idiopathic neuropathy complicate healing. I answered all the patient's questions. To return to the wound healing center in 1 week or call sooner if the patient has any questions or concerns.
== END 2024-12-05 23:59 | disposition home or self-care (01) ==
LOC: WC 11:15
PROVIDERS: PCP Nurse Practitioner Primary Care; Referring Provider Student in an Organized Health Care Education/Training Program; Visit Provider Student in an Organized Health Care Education/Training Program
DX: L97.411 Non-pressure chronic ulcer of right heel and midfoot limited to breakdown of skin (principal); S90.821S Blister (nonthermal), right foot, sequela; X58.XXXS Exposure to other specified factors, sequela; I87.2 Venous insufficiency (chronic) (peripheral); I10 Essential (primary) hypertension; E66.9 Obesity, unspecified; G60.9 Hereditary and idiopathic neuropathy, unspecified; R60.0 Localized edema; S91.302A Unspecified open wound, left foot, initial encounter; Z79.01 Long term (current) use of anticoagulants; Z79.82 Long term (current) use of aspirin; Z79.899 Other long term (current) drug therapy
CPT/HCPCS: 11042; 99203; 99213; G0463

== ENCOUNTER 2024-12-08 10:45 | Outpatient (RCR) | payer MEDICARE, SELFPAY ==
[2024-12-08 10:53] VITALS: BP 133/78; PULSE 68; RESP 15; TEMP 36.3
--- NOTE | 2024-12-08 12:37 | PCM.WC.PN ---
History of Present Illness Date of Service: 12/08/24 Chief Complaint: wound left plantar foot History of Wound: Patient is a 68-year-old male with PMHx of previous ulcerations of the foot, chronic venous insufficiency/stasis dermatitis, idiopathic peripheral neuropathy, HTN, malnutrition, obesity, lower extremity edema bilateral. Patient follows with Dr. Jeronimo in [place] and reports [place] was [place] and did not wear proper shoe gear. He states that shoes were very tight and caused a blister on the medial aspect of the first metatarsal head of the right foot which did rupture/open once he returned to [place]. States that this has been present for roughly 3 weeks. He did follow with Dr. Jeronimo who prescribed Silvadene cream and dry sterile dressing to be changed daily to the site and referred him to the wound care center. Patient states it is looking better since his last visit. He denies wearing compression stockings and elevating feet. He denies additional trauma. Denies constitutional symptoms. Denies further complaints. Subjective Subjective This is a 69-year-old male who continues to follow with wound care center for ulceration of the medial aspect of the first metatarsal head. He continues changing dressings as instructed and continues to note site is healing well and believes it has closed over today. Denies constitutional symptoms today. Denies further complaints. Objective Data Objective Data Vital Signs: Vital Signs Temp Pulse Resp BP 97.4 F L 68 15 133/78 H 12/08/24 10:53 12/08/24 10:53 12/08/24 10:53 12/08/24 10:53 Physical Exam Const alert, oriented x3 and no apparent distress General Appearance: cooperative HEENT normocephalic Eyes General Eye: normal appearance of both eyes Neck General: normal visual inspection Lymph Lymphatic: no lymphadenopathy noted and no lymphedema noted Resp normal respiratory effort Cardio regular rate and regular rhythm Extremity no calf tenderness Extremity Narrative: Bilateral lower extremity: Vascular: DP and PT pulses palpable. CFT is less than 3 seconds to digits. Normal temperature gradient. Hair growth is diminished to the digits. Neurologic: Epicritic sensation intact, no focal deficit noted. Musculoskeletal: Muscle strength 5 5 age-appropriate. There is decreased range of motion of the ankle joint dorsiflexion with the knee extended without pain or crepitus. Full range of motion with knee flexed. Decreased range of motion of the first MTPJ. Semirigid hammertoe deformity to digits 1 through 5. No pain to palpation to bones of the foot or ankle. Negative Alvarez sign. Negative Homans' sign. Dermatologic: There are varicosities noted to the lower extremity that are more prominent about the medial ankle. There is hemosiderin deposition throughout the lower extremity secondary to chronic venous stasis dermatitis. Along the medial aspect of the right foot at the first metatarsal head there is evidence of previous ruptured blister with superficial ulceration secondary to ill fitting shoe gear. Ulceration noted to have healed today. No signs of infection. Skin no rashes or lesions noted General Skin Exam: venous stasis and dermatitis Neuro moves all extremities Debridement Note Debridement Note No debridement was completed: No debridement was completed today Post-Debridement Measurements and Additional Note: Post-Debridement Measurements/Treatment SHEEBA - Nurse 1 - General Ulcer Assessment Start: 12/08/24 10:53 Freq: Status: Active Protocol: [email or web address] Activity Type Activity Date Activity User E-sign Co-sign Detail Recorded Client Recorded Date Recorded By Document 12/08/24 10:53 ML [id number] 12/08/24 11:00 ML 12/08/24 10:53 - Today's Visit Information Type of service Follow-up Visit (Physician/[facility] ) Arrival Mode Ambulatory Patient Identification Verified (Name & Yes ) Patient Requires Transmission-Based No Precautions Vital Signs Temperature (97.8 F-99.1 F) 97.4 F L Temperature Source Temporal Pulse Rate (60-100) 68 Pulse Location Monitor Respiratory Rate (12-18) 15 Respiratory rate source Observation Blood Pressure (90/60-120/80) 133/78 H Blood Pressure Mean (mm Hg) 96 Source Monitor Position Sitting Blood Pressure Location Left Arm History Since Last Visit- (Skip if this is Patient's initial visit) Have you changed medications since your No last visit? Any new allergies or adverse reactions No Had a fall/change in ADL's that may No increase risk of falls Signs or symptoms of abuse and/or No neglect since last visit Have you been in the hospital since your No last visit? Has dressing in place as prescribed Yes Has compression in place as prescribed N/A Has offloadiing in place as prescribed N/A Experienced any changes in pain level or No management Pain Scale: 0-10 Numeric Is Patient Pain Free? Yes - Nurse 1 - General Ulcer Measurement Start: 12/08/24 10:53 Freq: Status: Active Protocol: Activity Type Activity Date Activity User E-sign Co-sign Detail Recorded Client Recorded Date Recorded By Document 12/08/24 10:53 [id number] 12/08/24 11:00 ML 12/08/24 10:53 Wound Center Nurse 1 5 RT MED FOOT -Current Size (cm) - Length 0.1 -Current Size (cm) - Width 0.1 -Current Size (cm) - Depth 0.1 -Total Square Cm 0.01 -Exudate Amt Small -Exudate Type Serosanguineous -Slough/Fibrin No -Necrosis Amt None Present (0 %) -Texture (Bernice-wound Skin Appearance) Assessed -Moisture (Bernice-wound Skin Appearance) Assessed -Color (Bernice-wound Skin Appearance) Assessed -Temperature (Bernice-wound Skin No Abnormality Appearance) (Pt Warm) -Tenderness on Palpation (Benrice-wound No Skin Appearance) -Ulcer Cleansing Rinsed/ Irrigated with Saline -Foul Odor after Cleansing No -Anesthetic Used 5% Lidocaine Gel - Nurse 2 - General Ulcer CM Notes Start: 12/08/24 10:53 Freq: Status: Active Protocol: Activity Type Activity Date Activity User E-sign Co-sign Detail Recorded Client Recorded Date Recorded By Document 12/08/24 11:33 [facility] [id number] 12/08/24 11:34 [facility] 12/08/24 11:33 Wound Center Nurse 2 -Time 11:33 -Procedure Performed No -Post Debridement (cm) - Length 0 -Post Debridement (cm) - Width 0 -Post Debridement (cm) - Depth 0 -Total Square (Post) (cm) 0 -Area of Debridement (cm) - Length 0 -Area of Debridement (cm) - Width 0 -Total Square (Area) (cm) 0 -Wound/Ulcer Outcome Healed- Epithelialized Pain Scale: 0-10 Numeric Is Patient Pain Free? Yes - Nurse 3 - General Ulcer D/C NN Start: 12/08/24 10:53 Freq: Status: Active Protocol: Activity Type Activity Date Activity User E-sign Co-sign Detail Recorded Client Recorded Date Recorded By Document 12/08/24 11:34 [facility] [id number] 12/08/24 11:34 [facility] 12/08/24 11:34 Is Patient Pain Free? Yes WC - Visit Discharge Discharge Condition Stable Ambulatory Status Ambulatory Transportation Private Auto Notes: HEALED. LEFT OPEN TO AIR. DISCHARGED Assessment/Plan Assessment/Plan (1) Non-pressure chronic ulcer of other part of right foot with fat layer exposed: CODE(S): L97.512 - Non-pressure chronic ulcer of other part of right foot with fat layer exposed (2) Idiopathic neuropathy: CODE(S): G60.9 - Hereditary and idiopathic neuropathy, unspecified (3) Venous insufficiency (chronic) (peripheral): CODE(S): I87.2 - Venous insufficiency (chronic) (peripheral) (4) Bilateral edema of lower extremity: CODE(S): R60.0 - Localized edema PLAN: Plan Patient seen and evaluated Predebridement measurement: Healed Postdebridement measurement: Healed medial first metatarsal head Ulceration did not undergo debridement as noted in the clinical panel above. Will continue to pad and protect newly epithelialized skin at the previous ulceration site. Ulceration demonstrates significant reduction in size versus the previous visit and has healed today Previously discussed proper fitting shoe gear with him. He did purchase better fitting new balance 608 shoe. Discussed this will be sufficient moving forward. Discussed continued elevation of the lower extremities at times of rest. Recommended to sleep in bed flat to aid in venous return overnight. Recommended wearing of compression stocking 20 to 30 mmHg at all times and to avoid prolonged standing or prolonged sitting with feet down. Recommended continued activity to aid in venous return and for overall health. Discussed adequate protein intake to aid in wound healing. The following work up and care recommendations were made: Dressing: Pad and protect for next 7 to 10 days Wash: Soap and water Tissue growth optimization: None Offload: Ensure proper fitting shoe gear to avoid irritation of the medial aspect of the first metatarsal head. Will pad and protect with Band-Aid during healing. Vascular: Vascular status and not impacting healing at this time. Edema: Will continue to elevate lower extremities to aid in reduction of edema. Compression stockings of 20 to 30 mm were recommended. Infection: No signs of infection Pain: May take [id number] Tylenol or ibuprofen for discomfort Host factors: Chronic venous insufficiency/stasis dermatitis, noncompliance with compression stocking, idiopathic neuropathy complicate healing. With wound healed he is being discharged from the wound care center today I answered all the patient's questions. To return to the wound healing center as needed or call sooner if the patient has any questions or concerns.
--- NOTE | 2024-12-12 09:17 | WC ---
PHOTO 12/08/24 RIGHT [facility]
== END 2024-12-20 09:07 | disposition home or self-care (01) ==
LOC: WC 10:45
PROVIDERS: PCP Nurse Practitioner Primary Care; Referring Provider Student in an Organized Health Care Education/Training Program; Visit Provider Student in an Organized Health Care Education/Training Program
DX: Z09 Encounter for follow-up examination after completed treatment for conditions other than malignant neoplasm (principal); E66.9 Obesity, unspecified; I87.2 Venous insufficiency (chronic) (peripheral); I10 Essential (primary) hypertension; G60.9 Hereditary and idiopathic neuropathy, unspecified; R60.0 Localized edema; Z79.82 Long term (current) use of aspirin; Z79.899 Other long term (current) drug therapy
CPT/HCPCS: 99213; G0463